=== PATIENT | male | born 1980 | race American Indian/Alaskan Native ===

== ENCOUNTER 2016-11-25 06:53 | Emergency (ER) | payer OTHER ==
[2016-11-25 07:10] VITALS: BP 121/76
--- NOTE | 2016-11-25 08:10 | XRay Report ---
CHEST TWO VIEWS: 11/25/16 06:53:00 CLINICAL: Cough. COMPARISON: 12/31/14 FINDINGS: Normal heart and pulmonary vasculature. The lungs are normally expanded and clear.The bones and soft tissues are unremarkable. IMPRESSION: Normal chest.
--- NOTE | 2016-11-25 08:16 | Emergency Department Report ---
- General Chief Complaint: Upper Respiratory Infection Stated Complaint: HEAD CONGESTION Time Seen by Provider: 11/25/16 07:35 Source: patient Mode of arrival: Ambulatory Limitations: No Limitations - History of Present Illness Initial Comments: 36-year-old male past medical history smoker presents with complaint of one week of fevers chills productive cough worsening cough which is why he came to the ED today. Patient awake alert and oriented 3 not in acute distress states that yesterday he had coughing fits which kept him up all night which is why he came here today. Patient denies any palpitations or chest pain and sometimes inhales gases or dust at work. His cough is productive of yellowish thick green sputum. MD Complaint: cough Onset/Timin -: week(s) Severity: moderate Severity scale (0 -10): 6 Associated Symptoms: nasal congestion, cough - Related Data Previous Rx's Medication Instructions Recorded Last Taken Type Folic Acid [Folvite] 1 mg PO QDAY #30 tablet 01/06/15 Unknown Rx Sucralfate [Carafate] 1 gm PO Q6HR #30 tablet 01/06/15 Unknown Rx Thiamine [Vitamin B-1] 100 mg PO QDAY #30 tablet 01/06/15 Unknown Rx HYDROcodone/APAP 5-325 [[place] 1 each PO Q6HR PRN #12 tablet 12/30/15 Unknown Rx 5/325] Ondansetron [Zofran Odt] 4 mg PO Q6HR PRN #20 tab.rapdis 12/30/15 Unknown Rx Pantoprazole [Protonix TAB] 40 mg PO QDAY #30 tablet 12/30/15 Unknown Rx Ciprofloxacin HCl [Ciprofloxacin 500 mg PO Q12HR #6 tab 12/31/15 Unknown Rx TAB] Ibuprofen [Motrin] 600 mg PO Q6H PRN #20 tablet 12/31/15 Unknown Rx ALBUTEROL Inhaler [ProAir HFA 2 puff IH QID PRN #1 inhalation 11/25/16 Unknown Rx Inhaler] Azithromycin [Zithromax Z-MARY] 250 mg PO QDAY #6 tablet 11/25/16 Unknown Rx Naproxen [Naprosyn TAB] 500 mg PO BID PRN #14 tablet 11/25/16 Unknown Rx Allergies Allergy/AdvReac Type Severity Reaction Status Date / Time No Known Allergies Allergy Unverified 11/06/13 07:23 ED Review of Systems ROS: Stated complaint: HEAD CONGESTION Other details as noted in HPI Constitutional: denies: chills, fever Eyes: denies: eye pain, eye discharge, vision change ENT: denies: ear pain, throat pain Respiratory: cough. denies: shortness of breath, wheezing Cardiovascular: denies: chest pain, palpitations Endocrine: no symptoms reported Gastrointestinal: denies: abdominal pain, nausea, diarrhea Genitourinary: denies: urgency, dysuria Musculoskeletal: denies: back pain, joint swelling, arthralgia Skin: denies: rash, lesions Neurological: denies: headache, weakness, paresthesias Psychiatric: denies: anxiety, depression Hematological/Lymphatic: denies: easy bleeding, easy bruising ED Past Medical Hx - Past Medical History Previous Medical History?: Yes Hx Hypertension: No Hx Congestive Heart Failure: No Hx Diabetes: No Hx Liver Disease: Yes (elevated LFTs, possible acute alcholic hepatitis) Hx Seizures: No Hx Asthma: No Hx COPD: No Additional medical history: cirrhosis - Surgical History Past Surgical History?: No - Social History Smoking Status: Current Some Day Smoker Substance Use Type: Alcohol - Medications Home Medications: Home Medications Medication Instructions Recorded Confirmed Last Taken Type Folic Acid [Folvite] 1 mg PO QDAY #30 tablet 01/06/15 Unknown Rx Sucralfate [Carafate] 1 gm PO Q6HR #30 tablet 01/06/15 Unknown Rx Thiamine [Vitamin B-1] 100 mg PO QDAY #30 tablet 01/06/15 Unknown Rx HYDROcodone/APAP 5-325 [[place] 1 each PO Q6HR PRN #12 tablet 12/30/15 Unknown Rx 5/325] Ondansetron [Zofran Odt] 4 mg PO Q6HR PRN #20 tab.rapdis 12/30/15 Unknown Rx Pantoprazole [Protonix TAB] 40 mg PO QDAY #30 tablet 12/30/15 Unknown Rx Ciprofloxacin HCl [Ciprofloxacin 500 mg PO Q12HR #6 tab 12/31/15 Unknown Rx TAB] Ibuprofen [Motrin] 600 mg PO Q6H PRN #20 tablet 12/31/15 Unknown Rx ALBUTEROL Inhaler [ProAir HFA 2 puff IH QID PRN #1 inhalation 11/25/16 Unknown Rx Inhaler] Azithromycin [Zithromax Z-MARY] 250 mg PO QDAY #6 tablet 11/25/16 Unknown Rx Naproxen [Naprosyn TAB] 500 mg PO BID PRN #14 tablet 11/25/16 Unknown Rx ED Physical Exam - General Limitations: No Limitations General appearance: alert, in no apparent distress - Head Head exam: Present: atraumatic, normocephalic - Eye Eye exam: Present: normal appearance, PERRL, EOMI - ENT ENT exam: Present: mucous membranes moist - Neck Neck exam: Present: normal inspection - Respiratory Respiratory exam: Present: normal lung sounds bilaterally. Absent: respiratory distress - Cardiovascular Cardiovascular Exam: Present: regular rate, normal rhythm. Absent: systolic murmur, diastolic murmur, rubs, gallop - GI/Abdominal GI/Abdominal exam: Present: soft, normal bowel sounds - Rectal Rectal exam: Present: deferred - Extremities Exam Extremities exam: Present: normal inspection - Back Exam Back exam: Present: normal inspection - Neurological Exam Neurological exam: Present: alert, oriented X3 - Psychiatric Psychiatric exam: Present: normal affect, normal mood - Skin Skin exam: Present: warm, dry, intact, normal color. Absent: rash ED Course Vital Signs 11/25/16 06:55 Temperature 97.9 F Pulse Rate 86 Respiratory 26 H Rate Blood Pressure 121/76 O2 Sat by Pulse 96 Oximetry ED Medical Decision Making - Medical Decision Making A/P: Acute bronchitis 1-albuterol inhaler, naproxen, Z-Mary 2-patient is heavy smoker and smokes 2-3 packs a day we'll cover him empirically with Z-Mary 3-patient requesting primary care referral I will refer him 4-advised to return for any severe fever chills worsened cough chest pain or inability to tolerate by mouth Critical care attestation.: If time is entered above; I have spent that time in minutes in the direct care of this critically ill patient, excluding procedure time. ED Disposition Clinical Impression: Acute bronchitis Qualifiers: Bronchitis organism: unspecified organism Qualified Code(s): J20.9 - Acute bronchitis, unspecified Disposition: DISCHARGED TO HOME OR SELFCARE Is pt being admited?: No Does the pt Need Aspirin: No Condition: Stable Instructions: Acute Bronchitis (ED), How to Stop Smoking (ED) Prescriptions: ALBUTEROL Inhaler [ProAir HFA Inhaler] 2 puff IH QID PRN #1 inhalation PRN Reason: Shortness Of Breath Azithromycin [Zithromax Z-MARY] 250 mg PO QDAY #6 tablet Naproxen [Naprosyn TAB] 500 mg PO BID PRN #14 tablet PRN Reason: Pain Referrals: PRIMARY CARE, [Primary Care Provider] - 3-5 Days JEANINE BEAR MD [Staff Physician] - 3-5 Days [facility] [Outside] - 3-5 Days Forms: Work/School Release Form(ED) Time of Disposition: 08:15
== END 2016-11-25 08:24 | disposition home or self-care (01) ==
LOC: ED 06:53
DX: J20.9 Acute bronchitis, unspecified (principal); Z72.0 Tobacco use
CPT/HCPCS: 71020; 99283

== ENCOUNTER 2017-10-28 17:54 | Emergency (ER) | payer OTHER ==
[2017-10-29] MEDS ORDERED: MOTRIN PO ONE (00:42)
[2017-10-29] MEDS ORDERED: BOOSTRIX IM ONE (00:42)
--- NOTE | 2017-10-29 00:46 | Emergency Department Report ---
ED Laceration HPI - HPI Chief Complaint: Laceration/Recheck/Suture Stated Complaint: ABD. LACERATION Time Seen by Provider: 10/28/17 23:32 Occurred When: Yesterday Location: Abdomen Tetanus Status: Not up to Date Laceration Symptoms: Yes Pain, No Foreign Body Sensation, No Numbness, No Weakness Other History: This is a 37-year-old male nontoxic, well nourished in appearance , no acute signs of distress presents to the ED with c/o of abrasions of the abdomen that occurred yesterday. Patient stated he was using a carbon grinder at home and accidentally had contact with his abdomen region. Patient denies any pus, drainage, swelling, numbness, tingling, fever, chills, nausea, vomiting, headache or stiff neck. Patient denies any other trauma. Patient stated area is crusting. Patient denies any allergies or significant past medical history. ED Review of Systems ROS: Stated complaint: ABD. LACERATION Other details as noted in HPI Constitutional: denies: chills, fever Eyes: denies: eye pain, eye discharge, vision change ENT: denies: ear pain, throat pain Respiratory: denies: cough, shortness of breath, wheezing Cardiovascular: denies: chest pain, palpitations Endocrine: no symptoms reported Gastrointestinal: denies: abdominal pain, nausea, diarrhea Genitourinary: denies: urgency, dysuria Musculoskeletal: denies: back pain, joint swelling, arthralgia Skin: other (abrasion). denies: rash, lesions Neurological: denies: headache, weakness, paresthesias Psychiatric: denies: anxiety, depression Hematological/Lymphatic: denies: easy bleeding, easy bruising ED Past Medical Hx - Past Medical History Hx Hypertension: No Hx Congestive Heart Failure: No Hx Diabetes: No Hx Liver Disease: Yes (elevated LFTs, possible acute alcholic hepatitis) Hx Seizures: No Hx Asthma: No Hx COPD: No Additional medical history: cirrhosis - Social History Smoking Status: Never Smoker Substance Use Type: None - Medications Home Medications: Home Medications Medication Instructions Recorded Confirmed Last Taken Type Folic Acid [Folvite] 1 mg PO QDAY #30 tablet 01/06/15 Unknown Rx Sucralfate [Carafate] 1 gm PO Q6HR #30 tablet 01/06/15 Unknown Rx Thiamine [Vitamin B-1] 100 mg PO QDAY #30 tablet 01/06/15 Unknown Rx HYDROcodone/APAP 5-325 [[place] 1 each PO Q6HR PRN #12 tablet 12/30/15 Unknown Rx 5/325] Ondansetron [Zofran Odt] 4 mg PO Q6HR PRN #20 tab.rapdis 12/30/15 Unknown Rx Pantoprazole [Protonix TAB] 40 mg PO QDAY #30 tablet 12/30/15 Unknown Rx Ciprofloxacin HCl [Ciprofloxacin 500 mg PO Q12HR #6 tab 12/31/15 Unknown Rx TAB] Ibuprofen [Motrin] 600 mg PO Q6H PRN #20 tablet 12/31/15 Unknown Rx ALBUTEROL Inhaler [ProAir HFA 2 puff IH QID PRN #1 inhalation 11/25/16 Unknown Rx Inhaler] Azithromycin [Zithromax Z-MARY] 250 mg PO QDAY #6 tablet 11/25/16 Unknown Rx Naproxen [Naprosyn TAB] 500 mg PO BID PRN #14 tablet 11/25/16 Unknown Rx Ibuprofen [Motrin] 600 mg PO Q8H PRN #20 tablet 10/29/17 Unknown Rx Sulfamethoxazole/Trimethoprim 1 each PO BID #14 tablet 10/29/17 Unknown Rx [Bactrim DS TAB] Laceration Physical Exam - Exam General: Vital signs noted. No distress. Alert and acting appropriately. GENERAL: The patient is a well-developed, well-nourished in no apparent distress. Patient is alert and acting appropriately for age. Alert and oriented 3, no apparent distress, normal gait, atraumatic. HEENT: Head is normocephalic and atraumatic. PERRL, Extraocular muscles are intact. Pupils are equal, round, and reactive to light and accommodation. Nares appeared normal. Mouth is well hydrated and without lesions. Mucous membranes are moist. Posterior pharynx clear of any exudate or lesions. Mouth is well hydrated and without lesions. Tonsils not erythematous or swollen. Uvula midline. Tongue elevated. Mucous members are moist. Posterior pharynx clear, no exudate or lesions. Patent airways. NECK: Supple. No carotid bruits. No lymphadenopathy or thyromegaly.nontender. No meningitic signs are noted. LUNGS: Clear to auscultation. Non labor breathing. No intercostal retractions. Symmetrical with respiration, no wheezing, no rales, or crackles. HEART: Regular rate and rhythm without murmur, rubs or gallops. No reproducible. S1, S2 present, regular rate and rhythm without murmur, no rubs, no gallops. ABDOMEN: Soft, nontender, and nondistended. Positive bowel sounds. No hepatosplenomegaly was noted. No guarding or rebound tenderness, negative epigastric bruit. Negative psoas sign, negative wallace sign, negative McBurneys sign EXTREMITIES: Without any cyanosis, clubbing, rash, lesions or edema. Peripheral pulses intact. Capillary refill less than 2 seconds. Full range of motion bilaterally. NEUROLOGIC: Cranial nerves II through XII are grossly intact. Alert and oriented x 3. Normal gait. Symmetrical strength and sensation. Reflexes 2+ throughout. Cerebellar testing normal. GCS score of 15. PSYCHIATRIC: Normal affect with no suicidal or homicidal ideations. Wound Length (cm): 7 (inches) Laceration Location: Abdomen Full Body Front + Back: 1 - 7 inches abrasion with healing crusting. No lacertation present. No open wound. No pus or drainage noted. No swelling. Laceration Exam: Yes Normal Distal CMS, No Foreign Body, No Exposed Tendon, Vessel, or Nerve, No Tendon Injury ED Course Vital Signs 10/28/17 19:06 Temperature 98.4 F Pulse Rate 86 Respiratory 18 Rate Blood Pressure 116/83 O2 Sat by Pulse 98 Oximetry - Reevaluation(s) Reevaluation #1: 10/29/17 00:45 Patient is speaking in full sentences with no signs of distress noted. ED Medical Decision Making - Medical Decision Making 37-year-old male male that presents with abrasion that is well-healing and crusting. Patient is stable and was examined by me. Patient received tetanus booster and Motrin and ED. Patient be treated with Bactrim for empirical treatment. Patient was instructed for proper wound care. Patient was instructed to observe symptoms and signs of infection and to return to emergency room if present. Patient was instructed Follow-up with a primary care doctor in 3-5 days or if symptoms worsen and continue return to emergency room as soon as possible. At time time of discharge, the patient does not seem toxic or ill in appearance. No acute signs of distress noted. Patient agrees to discharge treatment plan of care. No further questions noted by the patient. Critical care attestation.: If time is entered above; I have spent that time in minutes in the direct care of this critically ill patient, excluding procedure time. ED Disposition Clinical Impression: Abrasion Disposition: DC-01 TO HOME OR SELFCARE Is pt being admited?: No Does the pt Need Aspirin: No Condition: Stable Instructions: Abrasion (ED), Sulfamethoxazole/Trimethoprim (By mouth), Ibuprofen (By mouth) Additional Instructions: Follow-up with a primary care doctor in 3-5 days or if symptoms worsen and continue return to emergency room as soon as possible. Prescriptions: Ibuprofen [Motrin] 600 mg PO Q8H PRN #20 tablet PRN Reason: Pain Sulfamethoxazole/Trimethoprim [Bactrim DS TAB] 1 each PO BID #14 tablet Referrals: PRIMARY CAREMD [Primary Care Provider] - 3-5 Days JEANINE MEDEIROS MD [Staff Physician] - 3-5 Days [facility] [Outside] - 3-5 Days Forms: Work/School Release Form(ED)
[2017-10-29 00:55] VITALS: BP 124/81
== END 2017-10-29 00:58 | disposition home or self-care (01) ==
LOC: ED 17:54
DX: S30.811A Abrasion of abdominal wall, initial encounter (principal); W22.8XXA Striking against or struck by other objects, initial encounter; Y93.89 Activity, other specified; Y92.89 Other specified places as the place of occurrence of the external cause; Y99.8 Other external cause status
CPT/HCPCS: 90471; 90715; 99282

== ENCOUNTER 2018-04-05 00:26 | Emergency (ER) | payer OTHER ==
[2018-04-05 03:28] VITALS: BP 121/81
--- NOTE | 2018-04-05 03:51 | XRay Report ---
FINAL REPORT EXAM: XR SPINE LUMBOSACRAL 2-3V HISTORY: lower back pain COMPARISON: None available. FINDINGS: AP lateral views of the lumbar spine obtained. Lumbar vertebral body heights and disc heights are preserved. Pedicles are intact. No spondylolisthesis. IMPRESSION: Normal height and alignment of the lumbar spine.
[2018-04-05] MEDS ORDERED: TORADOL IM ONE (04:59)
--- NOTE | 2018-04-05 05:02 | Emergency Department Report ---
HPI - General Chief Complaint: Back Pain/Injury Time Seen by Provider: 04/05/18 04:58 - HPI HPI: The patient is a 37 yo male who presents for evaluation of back pain. The patient reports bilateral low back pain for the past 2 days. He states that his back pain began after picking up a heavy boxes. His back pain is currently moderate to severe, sharp in quality, exacerbated with bending over at the lower back. The patient denies blunt trauma to the back, fall, fever, chills, night sweats, saddle anesthesia, paresthesias, numbness or tingling in the legs , leg weakness, urine or bowel incontinence or retention, difficulty ambulating , or other focal neurological deficits. ED Past Medical Hx - Past Medical History Hx Hypertension: No Hx Congestive Heart Failure: No Hx Diabetes: No Hx Liver Disease: Yes (elevated LFTs, possible acute alcholic hepatitis) Hx Seizures: No Hx Asthma: No Hx COPD: No Additional medical history: cirrhosis - Surgical History Past Surgical History?: No - Social History Smoking Status: Current Every Day Smoker Substance Use Type: None - Medications Home Medications: Home Medications Medication Instructions Recorded Confirmed Last Taken Type Folic Acid [Folvite] 1 mg PO QDAY #30 tablet 01/06/15 Unknown Rx Sucralfate [Carafate] 1 gm PO Q6HR #30 tablet 01/06/15 Unknown Rx Thiamine [Vitamin B-1] 100 mg PO QDAY #30 tablet 01/06/15 Unknown Rx HYDROcodone/APAP 5-325 [[place] 1 each PO Q6HR PRN #12 tablet 12/30/15 Unknown Rx 5/325] Ondansetron [Zofran Odt] 4 mg PO Q6HR PRN #20 tab.rapdis 12/30/15 Unknown Rx Pantoprazole [Protonix TAB] 40 mg PO QDAY #30 tablet 12/30/15 Unknown Rx Ciprofloxacin HCl [Ciprofloxacin 500 mg PO Q12HR #6 tab 12/31/15 Unknown Rx TAB] Ibuprofen [Motrin] 600 mg PO Q6H PRN #20 tablet 12/31/15 Unknown Rx ALBUTEROL Inhaler [ProAir HFA 2 puff IH QID PRN #1 inhalation 11/25/16 Unknown Rx Inhaler] Azithromycin [Zithromax Z-MARY] 250 mg PO QDAY #6 tablet 02/08/17 Unknown Rx Naproxen [Naprosyn TAB] 500 mg PO BID PRN #14 tablet 11/25/16 Unknown Rx Ibuprofen [Motrin] 600 mg PO Q8H PRN #20 tablet 10/29/17 Unknown Rx Sulfamethoxazole/Trimethoprim 1 each PO BID #14 tablet 10/29/17 Unknown Rx [Bactrim DS TAB] Ibuprofen [Motrin] 800 mg PO Q8HR PRN #10 tablet 04/05/18 Unknown Rx traMADol [Ultram 50 MG tab] 50 mg PO Q6HR PRN #15 tablet 04/05/18 Unknown Rx ED Review of Systems ROS: Stated complaint: BACK PAIN Other details as noted in HPI Constitutional: denies: fever ENT: denies: throat or neck pain Respiratory: denies: cough, shortness of breath Cardiovascular: denies: chest pain Endocrine: denies unexplained weight loss or gain Gastrointestinal: denies: abdominal pain, nausea Genitourinary: denies: dysuria Musculoskeletal: reports back pain denies: leg swelling Skin: denies: rash Neurological: denies: headache Hematological/Lymphatic: denies: easy bleeding or easy bruising Psych: denies sadness or hopelessness Physical Exam - Physical Exam Vital Signs: Vital Signs 04/05/18 03:24 Temperature 98.3 F Pulse Rate 84 Blood Pressure 121/81 O2 Sat by Pulse 97 Oximetry Physical Exam: General: well-nourished, well-developed, no acute distress Head: Normocephalic, atraumatic Eyes: normal sclera ENT: Mucous membranes are pink and moist Neck: trachea midline, neck supple, No neck stiffness, no cervical adenopathy Respiratory: Breath sounds equal bilaterally, no wheezing, rales, or rhonchi Cardio: S1 and S2 present, no murmurs, rubs, gallops, capillary refill is brisk Abdomen: Normoactive bowel sounds, soft abdomen, no rigidity, no guarding or rebound tenderness Chest WALL/Back: No tenderness to palpation of the chest wall, no CVA tenderness with percussion Musc: Tenderness to palpation present to bilateral lumbar paraspinal musculature , pain is elicited with bending over, normal active range of motion at the hip intact, no spinous step-off or obvious deformity, ipsi-lateral and contralateral straight leg raise tests are negative. On extremity testing, compartments are soft and pliable, no obvious gross motor strength deficit, 5+ motor strength, including extension of the great toe bilaterally, no muscular atrophy, spasticity, fasciculations, or clonus, no obvious gross sensation deficit including web space between 1st and 2nd toes, reflexes 2+ & symmetric on DTR testing at the knee and ankle joints, distal pulses intact. Skin: No rash Neuro: no facial drooping, normal speech Psych: Normal affect ED Course Vital Signs 04/05/18 03:24 Temperature 98.3 F Pulse Rate 84 Blood Pressure 121/81 O2 Sat by Pulse 97 Oximetry ED Medical Decision Making - Medical Decision Making The patient was seen and examined by myself. The patient is placed on a cardiac catheterization technologist and continuous pulse ox. On initial evaluation, the patient was found to be in no distress. No findings on exam concerning for cauda equina syndrome, spinal stenosis, or epidural abscess. As the patient has no midline tenderness on exam, no neuro deficits, and no findings concerning for emergent etiology of their back pain, imaging will not be obtained at this time. The patient is given an IM dose of Toradol pain medicine. The patient was reevaluated and reported that their pain significantly improved. The patient is stable for discharge with outpatient follow-up. The patient is given follow-up and return instructions. The patient expressed understanding and agreed with the plan. The patient is discharged in stable condition. Critical care attestation.: If time is entered above; I have spent that time in minutes in the direct care of this critically ill patient, excluding procedure time. ED Disposition Clinical Impression: Acute bilateral low back pain without sciatica Disposition: TO HOME OR SELFCARE Is pt being admited?: No Does the pt Need Aspirin: No Condition: Stable Instructions: Low Back Strain (ED), Back Pain (ED) Prescriptions: Ibuprofen [Motrin] 800 mg PO Q8HR PRN #10 tablet PRN Reason: Pain traMADol [Ultram 50 MG tab] 50 mg PO Q6HR PRN #15 tablet PRN Reason: Pain Referrals: ISAIAH PRASAD MD [Staff Physician] - 3-5 Days Forms: Work/School Release Form(ED) Time of Disposition: 04:59
== END 2018-04-05 06:05 | disposition home or self-care (01) ==
LOC: ED 00:26
DX: M54.5 Low back pain (principal); F17.200 Nicotine dependence, unspecified, uncomplicated; K70.30 Alcoholic cirrhosis of liver without ascites
CPT/HCPCS: 72100; 96372; 99283; J1885

== ENCOUNTER 2018-11-28 09:30 | Emergency (ER) | payer OTHER ==
[2018-11-28] MEDS ORDERED: ASPIRIN PO ONE (10:00)
[2018-11-28 10:18] LABS: Basophils % (Auto) 0.3 % (0.0-1.8); Eosinophils # (Auto) 0.1 K/mm3 (0.0-0.4); Eosinophils % (Auto) 0.8 % (0.0-4.3); Hematocrit 43.8 % (35.5-45.6); Hemoglobin 15.1 gm/dl (11.8-15.2); Lymphocytes # (Auto) 1.3 K/mm3 (1.2-5.4); Lymphocytes % (Auto) 16.5 % (13.4-35.0); Mean Corpuscular HGB Conc 34 % (32-34); Mean Corpuscular Volume 85 fl (84-94); Monocytes # (Auto) 0.7 K/mm3 (0.0-0.8); Monocytes % (Auto) 8.3 % (0.0-7.3); Platelet Count 328 K/mm3 (140-440); Red Blood Count 5.14 M/mm3 (3.65-5.03); Red Cell Distribution Width 13.2 % (13.2-15.2)
[2018-11-28 10:42] LABS: Albumin 4.4 g/dL (3.9-5); BUN/Creatinine Ratio 23; Blood Urea Nitrogen 18 mg/dL (9-20); Calcium 9.5 mg/dL (8.4-10.2); Hemolysis Index 166
[2018-11-28 11:22] LABS: Alanine Aminotransferase 12 units/L (7-56)
--- NOTE | 2018-11-28 11:49 | Emergency Department Report ---
ED Abdominal Pain HPI - General Chief Complaint: Chest Pain Stated Complaint: CHEST PAIN/BACK PAIN Time Seen by Provider: 11/28/18 11:42 Source: patient Mode of arrival: Ambulatory Limitations: No Limitations - History of Present Illness Initial Comments: Patient is a 38-year-old gentleman who has complaints of right upper quadrant and right chest pain. Patient states this occurred last night approximately 8 PM. Patient cannot remember the last meal he had. Patient states was a sharp pain in this area. Patient denies any nausea vomiting diarrhea fevers chills cough, congestion. Patient states the pain is improved today however it is not completely gone. Radiation: RUQ Severity scale (0 -10): 6 Consistency: constant Improves With: nothing Worsens With: nothing Associated Symptoms: denies: nausea, vomiting, diarrhea, fever, chills, constipation, dysuria, hematemesis, hematochezia, melena - Related Data Previous Rx's Medication Instructions Recorded Last Taken Type Folic Acid [Folvite] 1 mg PO QDAY #30 tablet 01/06/15 Unknown Rx Sucralfate [Carafate] 1 gm PO Q6HR #30 tablet 01/06/15 Unknown Rx Thiamine [Vitamin B-1] 100 mg PO QDAY #30 tablet 01/06/15 Unknown Rx HYDROcodone/APAP 5-325 [[place] 1 each PO Q6HR PRN #12 tablet 12/30/15 Unknown Rx 5/325] Ondansetron [Zofran Odt] 4 mg PO Q6HR PRN #20 tab.rapdis 12/30/15 Unknown Rx Pantoprazole [Protonix TAB] 40 mg PO QDAY #30 tablet 12/30/15 Unknown Rx Ciprofloxacin HCl [Ciprofloxacin 500 mg PO Q12HR #6 tab 12/31/15 Unknown Rx TAB] Ibuprofen [Motrin] 600 mg PO Q6H PRN #20 tablet 12/31/15 Unknown Rx ALBUTEROL Inhaler (OR & NICU) 2 puff IH QID PRN #1 inhalation 11/25/16 Unknown Rx [ProAir HFA Inhaler] Azithromycin [Zithromax Z-MARY] 250 mg PO QDAY #6 tablet 11/25/16 Unknown Rx Naproxen [Naprosyn TAB] 500 mg PO BID PRN #14 tablet 11/25/16 Unknown Rx Ibuprofen [Motrin] 600 mg PO Q8H PRN #20 tablet 10/29/17 Unknown Rx Sulfamethoxazole/Trimethoprim 1 each PO BID #14 tablet 10/29/17 Unknown Rx [Bactrim DS TAB] Ibuprofen [Motrin] 800 mg PO Q8HR PRN #10 tablet 04/05/18 Unknown Rx traMADol [Ultram 50 MG tab] 50 mg PO Q6HR PRN #15 tablet 04/05/18 Unknown Rx Dicyclomine [Bentyl] 20 mg PO QID PRN #20 tablet 07/27/18 Unknown Rx Promethazine [Phenergan TAB] 25 mg PO Q6HR PRN #20 tab 07/27/18 Unknown Rx Famotidine [Pepcid] 40 mg PO QHS #10 tablet 11/28/18 Unknown Rx traMADol [Ultram] 50 mg PO Q6HR PRN #12 tablet 11/28/18 Unknown Rx Allergies Allergy/AdvReac Type Severity Reaction Status Date / Time No Known Allergies Allergy Unverified 11/06/13 07:23 ED Review of Systems ROS: Stated complaint: CHEST PAIN/BACK PAIN Other details as noted in HPI Comment: All other systems reviewed and negative ED Past Medical Hx - Past Medical History Hx Hypertension: No Hx Congestive Heart Failure: No Hx Diabetes: No Hx Liver Disease: Yes (elevated LFTs, possible acute alcholic hepatitis) Hx Seizures: No Hx Asthma: No Hx COPD: No Additional medical history: cirrhosis - Surgical History Past Surgical History?: No - Social History Smoking Status: Current Every Day Smoker Substance Use Type: Marijuana - Medications Home Medications: Home Medications Medication Instructions Recorded Confirmed Last Taken Type Folic Acid [Folvite] 1 mg PO QDAY #30 tablet 01/06/15 Unknown Rx Sucralfate [Carafate] 1 gm PO Q6HR #30 tablet 01/06/15 Unknown Rx Thiamine [Vitamin B-1] 100 mg PO QDAY #30 tablet 01/06/15 Unknown Rx HYDROcodone/APAP 5-325 [[place] 1 each PO Q6HR PRN #12 tablet 12/30/15 Unknown Rx 5/325] Ondansetron [Zofran Odt] 4 mg PO Q6HR PRN #20 tab.rapdis 12/30/15 Unknown Rx Pantoprazole [Protonix TAB] 40 mg PO QDAY #30 tablet 12/30/15 Unknown Rx Ciprofloxacin HCl [Ciprofloxacin 500 mg PO Q12HR #6 tab 03/15/16 Unknown Rx TAB] Ibuprofen [Motrin] 600 mg PO Q6H PRN #20 tablet 12/31/15 Unknown Rx ALBUTEROL Inhaler (OR & NICU) 2 puff IH QID PRN #1 inhalation 11/25/16 Unknown Rx [ProAir HFA Inhaler] Azithromycin [Zithromax Z-MARY] 250 mg PO QDAY #6 tablet 11/25/16 Unknown Rx Naproxen [Naprosyn TAB] 500 mg PO BID PRN #14 tablet 11/25/16 Unknown Rx Ibuprofen [Motrin] 600 mg PO Q8H PRN #20 tablet 10/29/17 Unknown Rx Sulfamethoxazole/Trimethoprim 1 each PO BID #14 tablet 10/29/17 Unknown Rx [Bactrim DS TAB] Ibuprofen [Motrin] 800 mg PO Q8HR PRN #10 tablet 04/05/18 Unknown Rx traMADol [Ultram 50 MG tab] 50 mg PO Q6HR PRN #15 tablet 04/05/18 Unknown Rx Dicyclomine [Bentyl] 20 mg PO QID PRN #20 tablet 07/27/18 Unknown Rx Promethazine [Phenergan TAB] 25 mg PO Q6HR PRN #20 tab 07/27/18 Unknown Rx Famotidine [Pepcid] 40 mg PO QHS #10 tablet 11/28/18 Unknown Rx traMADol [Ultram] 50 mg PO Q6HR PRN #12 tablet 11/28/18 Unknown Rx ED Physical Exam - General Limitations: No Limitations General appearance: alert, in no apparent distress - Head Head exam: Present: atraumatic, normocephalic - Eye Eye exam: Present: normal appearance - ENT ENT exam: Present: mucous membranes moist - Neck Neck exam: Present: normal inspection - Respiratory Respiratory exam: Present: normal lung sounds bilaterally. Absent: respiratory distress, wheezes, rales, rhonchi - Cardiovascular Cardiovascular Exam: Present: regular rate, normal rhythm. Absent: systolic murmur, diastolic murmur, rubs, gallop - GI/Abdominal GI/Abdominal exam: Present: soft, tenderness (patient has reproducible tenderness in the right upper quadrant), normal bowel sounds. Absent: distended, guarding, rebound, rigid - Rectal Rectal exam: Present: deferred - Extremities Exam Extremities exam: Present: normal inspection - Back Exam Back exam: Present: normal inspection - Neurological Exam Neurological exam: Present: alert, oriented X3 - Psychiatric Psychiatric exam: Present: normal affect, normal mood - Skin Skin exam: Present: warm, dry, intact, normal color. Absent: rash ED Course Vital Signs 11/28/18 11/28/18 09:55 11:18 Temperature 98 F Pulse Rate 71 Respiratory 18 18 Rate Blood Pressure 139/91 O2 Sat by Pulse 100 Oximetry ED Medical Decision Making - Lab Data Result diagrams: 11/28/18 10:03 11/28/18 10:03 Lab Results 11/28/18 11/28/18 11/28/18 Range/Units 10:03 10:03 10:03 WBC 8.0 (4.5-11.0) K/mm3 RBC 5.14 H (3.65-5.03) M/mm3 Hgb 15.1 (11.8-15.2) gm/dl Hct 43.8 (35.5-45.6) % MCV 85 (84-94) fl MCH 29 (28-32) pg MCHC 34 (32-34) % RDW 13.2 (13.2-15.2) % Plt Count 328 (140-440) K/mm3 Lymph % (Auto) 16.5 (13.4-35.0) % [place] % (Auto) 8.3 H (0.0-7.3) % Eos % (Auto) 0.8 (0.0-4.3) % Baso % (Auto) 0.3 (0.0-1.8) % Lymph # 1.3 (1.2-5.4) K/mm3 [place] # 0.7 (0.0-0.8) K/mm3 Eos # 0.1 (0.0-0.4) K/mm3 Baso # 0.0 (0.0-0.1) K/mm3 Seg Neutrophils % 74.1 H (40.0-70.0) % Seg Neutrophils # 5.9 (1.8-7.7) K/mm3 Sodium 137 (137-145) mmol/L Potassium 4.6 (3.6-5.0) mmol/L Chloride 98.6 (98-107) mmol/L Carbon Dioxide 25 (22-30) mmol/L Anion Gap 18 mmol/L BUN 18 (9-20) mg/dL Creatinine 0.8 (0.8-1.5) mg/dL Estimated GFR > 60 ml/min BUN/Creatinine Ratio 23 % Glucose 95 (75-100) mg/dL Calcium 9.5 (8.4-10.2) mg/dL Total Bilirubin 0.40 (0.1-1.2) mg/dL AST 22 (5-40) units/L ALT 12 (7-56) units/L Alkaline Phosphatase 65 (35-129) units/L Troponin T < 0.010 (0.00-0.029) ng/mL Total Protein 7.4 (6.3-8.2) g/dL Albumin 4.4 (3.9-5) g/dL Albumin/Globulin Ratio 1.5 % - Radiology Data [facility] [address] [place] [address] Ultrasound Report Signed Patient: ZACK CHOUDHURY MR#: [id number] : 1980 Acct:[id number] Age/Sex: 38 / M ADM Date: 11/28/18 Loc: ED Attending Dr: Ordering Physician: MARIANA HUDSON MD Date of Service: 11/28/18 Procedure(s): US abdomen limited Accession Number(s): [id number] cc: MARIANA HUDSON MD FINAL REPORT EXAM: US ABDOMEN LIMITED HISTORY: RUQ pain COMPARISON: CT of the abdomen and pelvis performed on 12/30/2015 TECHNIQUE: Multiple transverse and longitudinal sonographic grayscale images of the right upper quadrant of the abdomen were obtained, supplemented with Doppler imaging. FINDINGS: Pancreas:Visualized portions normal. Liver appearance: Diffusely increased echogenicity of the hepatic parenchyma. No focal internal lesion.No biliary ductal dilatation. CBD: 2.9mm. Gallbladder: Fluid filled and without stones. No pericholecystic fluid or gallbladder wall thickening. Sonographic 's sign is negative. Right kidney length: 12.1 cm. Right kidney appearance: Normal cortical thickness. No hydronephrosis. No echogenic focus or mass. Aorta: Visualized portions are normal. IVC: Visualized portions are normal. Other findings: No free fluid. IMPRESSION: Diffusely increased echogenicity of the hepatic parenchyma, may be due to hepatic steatosis or other intrinsic liver disease. No focal internal lesion. Normal gallbladder and biliary tree. Transcribed By: STACIE Dictated By: ZANA HEALY MD Electronically Authenticated By: ZANA HEALY MD Signed Date/Time: 11/28/181252 DD/ 50 TD/TT: 11/28/181250 - Medical Decision Making His ultrasound is consistent with patient having some hepatic overreaction. Patient does admit to being a heavy alcohol user. Told the patient N his alcohol use and avoid Tylenol patient be given GI for follow-up. Critical care attestation.: If time is entered above; I have spent that time in minutes in the direct care of this critically ill patient, excluding procedure time. ED Disposition Clinical Impression: Hepatic steatosis Alcoholic gastritis Qualifiers: Chronicity: chronic Gastritis bleeding: without bleeding Qualified Code(s): K29.20 - Alcoholic gastritis without bleeding Disposition: DC-01 TO HOME OR SELFCARE Is pt being admited?: No Does the pt Need Aspirin: No Condition: Stable Instructions: Abuse of Alcohol (ED), Non-Alcoholic Fatty Liver Disease (ED) Referrals: LEO ZAPATA MD [Staff Physician] - 3-5 Days Time of Disposition: 13:36
--- NOTE | 2018-11-28 12:53 | Ultrasound Report ---
FINAL REPORT EXAM: US ABDOMEN LIMITED HISTORY: RUQ pain COMPARISON: CT of the abdomen and pelvis performed on 12/30/2015 TECHNIQUE: Multiple transverse and longitudinal sonographic grayscale images of the right upper quadrant of the abdomen were obtained, supplemented with Doppler imaging. FINDINGS: Pancreas:Visualized portions normal. Liver appearance: Diffusely increased echogenicity of the hepatic parenchyma. No focal internal lesio n.No biliary ductal dilatation. CBD: 2.9mm. Gallbladder: Fluid filled and without stones. No pericholecystic fluid or gallbladder wall thickening . Sonographic 's sign is negative. Right kidney length: 12.1 cm. Right kidney appearance: Normal cortical thickness. No hydronephrosis. No echogenic focus or mass. Aorta: Visualized portions are normal. IVC: Visualized portions are normal. Other findings: No free fluid. IMPRESSION: Diffusely increased echogenicity of the hepatic parenchyma, may be due to hepatic steatosis or other intrinsic liver disease. No focal internal lesion. Normal gallbladder and biliary tree.
[2018-11-28 14:01] VITALS: BP 136/88
== END 2018-11-28 13:59 | disposition home or self-care (01) ==
LOC: ED 09:30
DX: K29.20 Alcoholic gastritis without bleeding (principal); K76.0 Fatty (change of) liver, not elsewhere classified; F17.200 Nicotine dependence, unspecified, uncomplicated; F12.10 Cannabis abuse, uncomplicated; Z79.899 Other long term (current) drug therapy
CPT/HCPCS: 36415; 76705; 80053; 84484; 85025; 93005; 93010

== ENCOUNTER 2019-08-21 11:20 | Emergency (ER) | payer OTHER ==
[2019-08-21 11:56] VITALS: BP 132/88
--- NOTE | 2019-08-21 11:56 | Event Note ---
ED Screening Note Date of service: 08/21/19 Time: 11:51 ED Screening Note: 38 y o male presents with nasal congestion x 2 days today cc of general weakness with feeling of fever and chills, coughing This initial assessment/diagnostic orders/clinical plan/treatment(s) is/are subject to change based on patients health status, clinical progression and re- assessment by fellow clinical providers in the ED. Further treatment and workup at subsequent clinical providers discretion. Patient/guardian urged not to elope from the ED as their condition may be serious if not clinically assessed and managed. Initial orders include: labs cxr Acc eval
[2019-08-21 12:52] LABS: Basophils % (Auto) 0.5 % (0.0-1.8); Eosinophils # (Auto) 0.1 K/mm3 (0.0-0.4); Hematocrit 46.6 % (35.5-45.6); Hemoglobin 15.7 gm/dl (11.8-15.2); Lymphocytes # (Auto) 2.3 K/mm3 (1.2-5.4); Lymphocytes % (Auto) 27.9 % (13.4-35.0); Mean Corpuscular HGB Conc 34 % (32-34); Mean Corpuscular Volume 86 fl (84-94); Monocytes # (Auto) 0.7 K/mm3 (0.0-0.8); Monocytes % (Auto) 8.7 % (0.0-7.3); Platelet Count 300 K/mm3 (140-440); Red Blood Count 5.43 M/mm3 (3.65-5.03); Red Cell Distribution Width 13.8 % (13.2-15.2)
[2019-08-21 13:11] LABS: BUN/Creatinine Ratio 14; Blood Urea Nitrogen 13 mg/dL (9-20); Calcium 9.7 mg/dL (8.4-10.2); Hemolysis Index 13
--- NOTE | 2019-08-21 13:25 | XRay Report ---
CHEST 2 VIEWS INDICATION: Weakness. COMPARISON: 07/27/2018 FINDINGS: Support devices: None. Heart: Within normal limits. Lungs/pleura: No acute air space or interstitial disease. No pneumothorax. Additional findings: None. IMPRESSION: Unremarkable chest x-ray. Signer Name: Sergio Lloyd Jr, MD Signed: 08/21/2019 1:21 PM Workstation Name: [id number]
--- NOTE | 2019-08-21 14:12 | Emergency Department Report ---
ED General Adult HPI - General Chief complaint: Weakness Stated complaint: FLU SYMPTOMS Time Seen by Provider: 08/21/19 13:30 Source: patient Mode of arrival: Ambulatory Limitations: No Limitations - History of Present Illness Initial comments: Patient is a 38-year-old -[place] male who is presenting with headache and cough. Patient states symptoms been present for approximately 2 days. Patient states he has yellowish-green discharge from the nose. He has facial pain is 10 out of 10 in severity. States cough is nonproductive. He has had chills and possible fever. He denies nausea vomiting diarrhea neck stiffness. - Related Data Previous Rx's Medication Instructions Recorded Last Taken Type Folic Acid [Folvite] 1 mg PO QDAY #30 tablet 01/06/15 Unknown Rx Sucralfate [Carafate] 1 gm PO Q6HR #30 tablet 01/06/15 Unknown Rx Thiamine [Vitamin B-1] 100 mg PO QDAY #30 tablet 01/06/15 Unknown Rx HYDROcodone/APAP 5-325 [[place] 1 each PO Q6HR PRN #12 tablet 12/30/15 Unknown Rx 5/325] Ondansetron [Zofran Odt] 4 mg PO Q6HR PRN #20 tab.rapdis 12/30/15 Unknown Rx Pantoprazole [Protonix TAB] 40 mg PO QDAY #30 tablet 12/30/15 Unknown Rx Ciprofloxacin HCl [Ciprofloxacin 500 mg PO Q12HR #6 tab 12/31/15 Unknown Rx TAB] Ibuprofen [Motrin] 600 mg PO Q6H PRN #20 tablet 12/31/15 Unknown Rx ALBUTEROL Inhaler (OR & NICU) 2 puff IH QID PRN #1 inhalation 11/25/16 Unknown R x [ProAir HFA Inhaler] Azithromycin [Zithromax Z-MARY] 250 mg PO QDAY #6 tablet 11/25/16 Unknown Rx Naproxen [Naprosyn TAB] 500 mg PO BID PRN #14 tablet 11/25/16 Unknown Rx Ibuprofen [Motrin] 600 mg PO Q8H PRN #20 tablet 10/29/17 Unknown Rx Sulfamethoxazole/Trimethoprim 1 each PO BID #14 tablet 10/29/17 Unknown Rx [Bactrim DS TAB] Ibuprofen [Motrin] 800 mg PO Q8HR PRN #10 tablet 04/05/18 Unknown Rx traMADol [Ultram 50 MG tab] 50 mg PO Q6HR PRN #15 tablet 04/05/18 Unknown Rx Dicyclomine [Bentyl] 20 mg PO QID PRN #20 tablet 07/27/18 Unknown Rx Promethazine [Phenergan TAB] 25 mg PO Q6HR PRN #20 tab 07/27/18 Unknown Rx Famotidine [Pepcid] 40 mg PO QHS #10 tablet 11/28/18 Unknown Rx traMADol [Ultram] 50 mg PO Q6HR PRN #12 tablet 11/28/18 Unknown Rx Amoxicillin/Potassium Clav 1 each PO BID #14 tablet 08/21/19 Unknown Rx [Augmentin 875-125 Tablet] Fluticasone [Flonase] 1 spray NS QDAY #1 bottle 08/21/19 Unknown Rx traMADol [Ultram] 50 mg PO Q6HR PRN #12 tablet 08/21/19 Unknown Rx Allergies Allergy/AdvReac Type Severity Reaction Status Date / Time No Known Allergies Allergy Unverified 11/06/13 07:23 ED Review of Systems ROS: Stated complaint: FLU SYMPTOMS Other details as noted in HPI Comment: All other systems reviewed and negative ED Past Medical Hx - Past Medical History Previous Medical History?: Yes Hx Hypertension: No Hx Congestive Heart Failure: No Hx Diabetes: No Hx Liver Disease: Yes (elevated LFTs, possible acute alcholic hepatitis) Hx Seizures: No Hx Asthma: No Hx COPD: No Additional medical history: cirrhosis - Surgical History Past Surgical History?: No - Social History Smoking Status: Unknown if ever smoked Substance Use Type: Alcohol - Medications Home Medications: Home Medications Medication Instructions Recorded Confirmed Last Taken Type Folic Acid [Folvite] 1 mg PO QDAY #30 tablet 01/06/15 Unknown Rx Sucralfate [Carafate] 1 gm PO Q6HR #30 tablet 01/06/15 Unknown Rx Thiamine [Vitamin B-1] 100 mg PO QDAY #30 tablet 01/06/15 Unknown Rx HYDROcodone/APAP 5-325 [[place] 1 each PO Q6HR PRN #12 tablet 12/30/15 Unknown Rx 5/325] Ondansetron [Zofran Odt] 4 mg PO Q6HR PRN #20 tab.rapdis 12/30/15 Unknown Rx Pantoprazole [Protonix TAB] 40 mg PO QDAY #30 tablet 12/30/15 Unknown Rx Ciprofloxacin HCl [Ciprofloxacin 500 mg PO Q12HR #6 tab 12/31/15 Unknown Rx TAB] Ibuprofen [Motrin] 600 mg PO Q6H PRN #20 tablet 12/31/15 Unknown Rx ALBUTEROL Inhaler (OR & NICU) 2 puff IH QID PRN #1 inhalation 11/25/16 Unknown Rx [ProAir HFA Inhaler] Azithromycin [Zithromax Z-MARY] 250 mg PO QDAY #6 tablet 11/25/16 Unknown Rx Naproxen [Naprosyn TAB] 500 mg PO BID PRN #14 tablet 11/25/16 Unknown Rx Ibuprofen [Motrin] 600 mg PO Q8H PRN #20 tablet 10/29/17 Unknown Rx Sulfamethoxazole/Trimethoprim 1 each PO BID #14 tablet 10/29/17 Unknown Rx [Bactrim DS TAB] Ibuprofen [Motrin] 800 mg PO Q8HR PRN #10 tablet 04/05/18 Unknown Rx traMADol [Ultram 50 MG tab] 50 mg PO Q6HR PRN #15 tablet 04/05/18 Unknown Rx Dicyclomine [Bentyl] 20 mg PO QID PRN #20 tablet 07/27/18 Unknown Rx Promethazine [Phenergan TAB] 25 mg PO Q6HR PRN #20 tab 07/27/18 Unknown Rx Famotidine [Pepcid] 40 mg PO QHS #10 tablet 11/28/18 Unknown Rx traMADol [Ultram] 50 mg PO Q6HR PRN #12 tablet 11/28/18 Unknown Rx Amoxicillin/Potassium Clav 1 each PO BID #14 tablet 08/21/19 Unknown Rx [Augmentin 875-125 Tablet] Fluticasone [Flonase] 1 spray NS QDAY #1 bottle 08/21/19 Unknown Rx traMADol [Ultram] 50 mg PO Q6HR PRN #12 tablet 08/21/19 Unknown Rx ED Physical Exam - General Limitations: No Limitations General appearance: alert, in no apparent distress - Head Head exam: Present: atraumatic, normocephalic - Expanded Head Exam Expanded 1 - With palpation 2 - Pain with palpation - Eye Eye exam: Present: normal appearance - ENT ENT exam: Present: mucous membranes moist - Neck Neck exam: Present: normal inspection - Respiratory Respiratory exam: Present: normal lung sounds bilaterally. Absent: respiratory distress, wheezes, rales, rhonchi - Cardiovascular Cardiovascular Exam: Present: regular rate, normal rhythm. Absent: systolic murmur, diastolic murmur, rubs, gallop - GI/Abdominal GI/Abdominal exam: Present: soft, normal bowel sounds - Rectal Rectal exam: Present: deferred - Extremities Exam Extremities exam: Present: normal inspection - Back Exam Back exam: Present: normal inspection - Neurological Exam Neurological exam: Present: alert, oriented X3 - Psychiatric Psychiatric exam: Present: normal affect, normal mood - Skin Skin exam: Present: warm, dry, intact, normal color. Absent: rash ED Course Vital Signs 08/21/19 11:28 Temperature 68.3 F L Pulse Rate 102 H Respiratory 16 Rate Blood Pressure 132/88 O2 Sat by Pulse 96 Oximetry ED Medical Decision Making - Lab Data Result diagrams: 08/21/19 12:30 08/21/19 12:30 - Medical Decision Making Patient clinically has acute sinusitis. Patient be started on antibiotics and be given medication for symptomatic relief. Critical care attestation.: If time is entered above; I have spent that time in minutes in the direct care of this critically ill patient, excluding procedure time. ED Disposition Clinical Impression: Acute sinusitis Qualifiers: Sinusitis location: pansinusitis Recurrence: non-recurrent Qualified Code(s): J01.40 - Acute pansinusitis, unspecified Disposition: - TO HOME OR SELFCARE Is pt being admited?: No Does the pt Need Aspirin: No Condition: Stable Instructions: Acute Bacterial Rhinosinusitis (ED) Additional Instructions: On brief review of your past medical history and chart I do not see a formal diagnosis or objective data this states that you have cirrhosis. She would like this removed from your file please follow-up with medical records. Referrals: JOSEPH PENA MD [Referring] - 3-5 Days Time of Disposition: 14:11
== END 2019-08-21 14:38 | disposition home or self-care (01) ==
LOC: ED 11:20
DX: J01.40 Acute pansinusitis, unspecified (principal)
CPT/HCPCS: 36415; 71046; 80048; 85025

== ENCOUNTER 2019-10-25 06:59 | Emergency (ER) | payer OTHER ==
[2019-10-25 07:06] VITALS: BP 138/75
[2019-10-25] MEDS ORDERED: IBUPROFEN 800 MG TAB PO ONE (09:58)
[2019-10-25] MEDS ORDERED: BENZONATATE 100 MG CAP PO ONE (09:58)
--- NOTE | 2019-10-25 10:28 | Emergency Department Report ---
Upper Respiratory HPI - HPI Duration: 1 Day URI Symptoms: Rhinorrhea: Yes, Sore Throat: No, Ear Pain: No, Cough: Yes, Shortness of Breath: No, Sick Contacts: No, Unable to Take Fluids: No, Urine Output Abnormal: No, Listless Behavior: No Other History: This is a 39-year-old male nontoxic, well nourished in appearance, no acute signs of distress presents to the ED with c/o of productive cough, frontal sinus, rhinorrhea, nasal congestion x1 day. Patient describes productive cough as yellow mucus production. Patient denies any sick contacts. Patient denies any recent travels, long car, recent hospital stays. Patient denies any calf pain or calf tenderness. Patient denies any chest pain, short of breath, fever, chills, nausea, vomiting, hemoptysis, numbness, tingling, headache or stiff neck. Patient denies any allergies or PMH. <MARIA L THRASHER - Last Filed: 10/25/19 10:41> <NATO BECKFORD - Last Filed: 10/27/19 07:27> - HPI Chief Complaint: Upper Respiratory Infection Stated Complaint: COLD SYMPTOMS Time Seen by Provider: 10/25/19 09:54 - Home Meds and Allergies Home Medications: Previous Rx's Medication Instructions Recorded Last Taken Type Folic Acid [Folvite] 1 mg PO QDAY #30 tablet 01/06/15 Unknown Rx Sucralfate [Carafate] 1 gm PO Q6HR #30 tablet 01/06/15 Unknown Rx Thiamine [Vitamin B-1] 100 mg PO QDAY #30 tablet 01/06/15 Unknown Rx HYDROcodone/APAP 5-325 [[place] 1 each PO Q6HR PRN #12 tablet 12/30/15 Unknown Rx 5/325] Ondansetron [Zofran Odt] 4 mg PO Q6HR PRN #20 tab.rapdis 12/30/15 Unknown Rx Pantoprazole [Protonix TAB] 40 mg PO QDAY #30 tablet 12/30/15 Unknown Rx Ciprofloxacin HCl [Ciprofloxacin 500 mg PO Q12HR #6 tab 12/31/15 Unknown Rx TAB] Ibuprofen [Motrin] 600 mg PO Q6H PRN #20 tablet 12/31/15 Unknown Rx Albuterol INH(or & Nicu Only) 2 puff IH QID PRN #1 inhalation 11/25/16 Unknown Rx [ProAir HFA Inhaler] Azithromycin [Zithromax Z-MARY] 250 mg PO QDAY #6 tablet 11/25/16 Unknown Rx Naproxen [Naprosyn TAB] 500 mg PO BID PRN #14 tablet 11/25/16 Unknown Rx Ibuprofen [Motrin] 600 mg PO Q8H PRN #20 tablet 10/29/17 Unknown Rx Sulfamethoxazole/Trimethoprim 1 each PO BID #14 tablet 10/29/17 Unknown Rx [Bactrim DS TAB] Ibuprofen [Motrin] 800 mg PO Q8HR PRN #10 tablet 04/05/18 Unknown Rx traMADoL [Ultram 50 MG tab] 50 mg PO Q6HR PRN #15 tablet 04/05/18 Unknown Rx Dicyclomine [Bentyl] 20 mg PO QID PRN #20 tablet 07/27/18 Unknown Rx Promethazine [Phenergan TAB] 25 mg PO Q6HR PRN #20 tab 07/27/18 Unknown Rx Famotidine [Pepcid] 40 mg PO QHS #10 tablet 11/28/18 Unknown Rx traMADoL [Ultram] 50 mg PO Q6HR PRN #12 tablet 11/28/18 Unknown Rx Amoxicillin/Potassium Clav 1 each PO BID #14 tablet 08/21/19 Unknown Rx [Augmentin 875-125 Tablet] Fluticasone [Flonase] 1 spray NS QDAY #1 bottle 08/21/19 Unknown Rx traMADoL [Ultram] 50 mg PO Q6HR PRN #12 tablet 08/21/19 Unknown Rx Amoxicillin/K Clav Tab [Augmentin 1 tab PO Q12HR #20 tab 10/25/19 Unknown Rx 875 mg] Benzonatate [Tessalon Perles] 100 mg PO Q8HR PRN #15 capsule 10/25/19 Unknown Rx Ibuprofen [Motrin] 600 mg PO Q8H PRN #20 tablet 10/25/19 Unknown Rx Allergies/Adverse Reactions: Allergies Allergy/AdvReac Type Severity Reaction Status Date / Time No Known Allergies Allergy Unverified 11/06/13 07:23 ED Review of Systems ROS: Stated complaint: COLD SYMPTOMS Other details as noted in HPI Constitutional: denies: chills, fever Eyes: denies: eye pain, eye discharge, vision change ENT: congestion. denies: ear pain, throat pain Respiratory: cough. denies: shortness of breath, wheezing Cardiovascular: denies: chest pain, palpitations Endocrine: no symptoms reported Gastrointestinal: denies: abdominal pain, nausea, diarrhea Genitourinary: denies: urgency, dysuria Musculoskeletal: denies: back pain, joint swelling, arthralgia Skin: denies: rash, lesions Neurological: denies: headache, weakness, paresthesias Psychiatric: denies: anxiety, depression Hematological/Lymphatic: denies: easy bleeding, easy bruising <MARIA L THRASHER - Last Filed: 10/25/19 10:41> ROS: Stated complaint: COLD SYMPTOMS Other details as noted in HPI <NATO BECKFORD - Last Filed: 10/27/19 07:27> ED Past Medical Hx - Past Medical History Hx Hypertension: No Hx Congestive Heart Failure: No Hx Diabetes: No Hx Liver Disease: Yes (elevated LFTs, possible acute alcholic hepatitis) Hx Seizures: No Hx Asthma: No Hx COPD: No Additional medical history: cirrhosis - Social History Smoking Status: Never Smoker <MARIA L THRASHER - Last Filed: 10/25/19 10:41> <NATO BECKFORD - Last Filed: 10/27/19 07:27> - Medications Home Medications: Home Medications Medication Instructions Recorded Confirmed Last Taken Type Folic Acid [Folvite] 1 mg PO QDAY #30 tablet 01/06/15 Unknown Rx Sucralfate [Carafate] 1 gm PO Q6HR #30 tablet 01/06/15 Unknown Rx Thiamine [Vitamin B-1] 100 mg PO QDAY #30 tablet 01/06/15 Unknown Rx HYDROcodone/APAP 5-325 [[place] 1 each PO Q6HR PRN #12 tablet 12/30/15 Unknown Rx 5/325] Ondansetron [Zofran Odt] 4 mg PO Q6HR PRN #20 tab.rapdis 12/30/15 Unknown Rx Pantoprazole [Protonix TAB] 40 mg PO QDAY #30 tablet 12/30/15 Unknown Rx Ciprofloxacin HCl [Ciprofloxacin 500 mg PO Q12HR #6 tab 12/31/15 Unknown Rx TAB] Ibuprofen [Motrin] 600 mg PO Q6H PRN #20 tablet 12/31/15 Unknown Rx Albuterol INH(or & Nicu Only) 2 puff IH QID PRN #1 inhalation 11/25/16 Unknown Rx [ProAir HFA Inhaler] Azithromycin [Zithromax Z-MARY] 250 mg PO QDAY #6 tablet 11/25/16 Unknown Rx Naproxen [Naprosyn TAB] 500 mg PO BID PRN #14 tablet 11/25/16 Unknown Rx Ibuprofen [Motrin] 600 mg PO Q8H PRN #20 tablet 10/29/17 Unknown Rx Sulfamethoxazole/Trimethoprim 1 each PO BID #14 tablet 10/29/17 Unknown Rx [Bactrim DS TAB] Ibuprofen [Motrin] 800 mg PO Q8HR PRN #10 tablet 04/05/18 Unknown Rx traMADoL [Ultram 50 MG tab] 50 mg PO Q6HR PRN #15 tablet 04/05/18 Unknown Rx Dicyclomine [Bentyl] 20 mg PO QID PRN #20 tablet 07/27/18 Unknown Rx Promethazine [Phenergan TAB] 25 mg PO Q6HR PRN #20 tab 07/27/18 Unknown Rx Famotidine [Pepcid] 40 mg PO QHS #10 tablet 11/28/18 Unknown Rx traMADoL [Ultram] 50 mg PO Q6HR PRN #12 tablet 11/28/18 Unknown Rx Amoxicillin/Potassium Clav 1 each PO BID #14 tablet 08/21/19 Unknown Rx [Augmentin 875-125 Tablet] Fluticasone [Flonase] 1 spray NS QDAY #1 bottle 08/21/19 Unknown Rx traMADoL [Ultram] 50 mg PO Q6HR PRN #12 tablet 08/21/19 Unknown Rx Amoxicillin/K Clav Tab [Augmentin 1 tab PO Q12HR #20 tab 10/25/19 Unknown Rx 875 mg] Benzonatate [Tessalon Perles] 100 mg PO Q8HR PRN #15 capsule 10/25/19 Unknown Rx Ibuprofen [Motrin] 600 mg PO Q8H PRN #20 tablet 10/25/19 Unknown Rx ED Bronchiolitis Physical Exam - Exam General: Vital signs noted. No distress. Alert and acting appropriately. Neurologic: Alert and oriented, no deficits. Musculoskeletal: Unremarkable. <MARIA L THRASHER - Last Filed: 10/25/19 10:41> - Exam General: Vital signs noted. No distress. Alert and acting appropriately. Neurologic: Alert and oriented, no deficits. Musculoskeletal: Unremarkable. <NATO BECKFORD P - Last Filed: 10/27/19 07:27> ED Physical Exam - General Limitations: No Limitations General appearance: alert, in no apparent distress - Head Head exam: Present: atraumatic, normocephalic, other (frontal sinus tenderness) - Eye Eye exam: Present: normal appearance, PERRL, EOMI - ENT ENT exam: Present: normal exam, normal orophraynx - Neck Neck exam: Present: normal inspection, full ROM. Absent: tenderness, meningismus, lymphadenopathy - Respiratory Respiratory exam: Present: normal lung sounds bilaterally. Absent: respiratory distress, wheezes, rales, rhonchi, stridor, chest wall tenderness, accessory muscle use, decreased breath sounds, prolonged expiratory - Cardiovascular Cardiovascular Exam: Present: regular rate, normal rhythm, normal heart sounds. Absent: bradycardia, tachycardia, irregular rhythm, systolic murmur, diastolic murmur, rubs, gallop - Extremities Exam Extremities exam: Present: normal inspection, full ROM - Back Exam Back exam: Present: normal inspection, full ROM - Neurological Exam Neurological exam: Present: alert, oriented X3, normal gait - Psychiatric Psychiatric exam: Present: normal affect, normal mood - Skin Skin exam: Present: warm, dry, intact, normal color. Absent: rash <MARIA L THRASHER - Last Filed: 10/25/19 10:41> ED Course Vital Signs 10/25/19 07:04 Temperature 98.1 F Pulse Rate 86 Respiratory 18 Rate Blood Pressure 138/75 O2 Sat by Pulse 96 Oximetry - Reevaluation(s) Reevaluation #1: 10/25/19 10:28 Patient is speaking in full sentences with no signs of distress noted. <MARIA L THRASHER - Last Filed: 10/25/19 10:41> Vital Signs 10/25/19 07:04 Temperature 98.1 F Pulse Rate 86 Respiratory 18 Rate Blood Pressure 138/75 O2 Sat by Pulse 96 Oximetry <NATO BECKFORD - Last Filed: 10/27/19 07:27> ED Medical Decision Making - Medical Decision Making This is a 39-year-old male that presents with bronchitis and sinusitis. Patient is stable and was examined by me. Chest x-ray has been obtained and dictated by radiologist with normal exam. Patient is notified of x-ray results with no questions noted. Patient be treated with Augmentin.. Patient was instructed to increase hydration, rest and take Motrin for fever episodes. Patient received motrin and tesslone perrls in the ED. Vitals stable. Patient is nonfebrile and normal heart rate. Patient was instructed Follow-up with a primary care doctor in 3-5 days or if symptoms worsen and continue return to emergency room as soon as possible. At time time of discharge, the patient does not seem toxic or ill in appearance. No acute signs of distress noted. Patient agrees to discharge treatment plan of care. No further questions noted by the patient. <MARIA L THRASHER - Last Filed: 10/25/19 10:41> - Medical Decision Making Attestation: Available for consultation <NATO BECKFORD - Last Filed: 10/27/19 07:27> Critical care attestation.: If time is entered above; I have spent that time in minutes in the direct care of this critically ill patient, excluding procedure time. <MARIA L THRASHER - Last Filed: 10/25/19 10:41> Critical care attestation.: If time is entered above; I have spent that time in minutes in the direct care of this critically ill patient, excluding procedure time. <NATO BECKFORD P - Last Filed: 10/27/19 07:27> ED Disposition Is pt being admited?: No Does the pt Need Aspirin: No <MARIA L THRASHER - Last Filed: 10/25/19 10:41> Is pt being admited?: No <NATO BECKFORD - Last Filed: 10/27/19 07:27> Clinical Impression: Bronchitis Disposition: DC-01 TO HOME OR SELFCARE Condition: Stable Instructions: Sinusitis (ED), Acute Bronchitis (ED), Chronic Bronchitis (ED) Additional Instructions: Follow-up with a primary care doctor in 3-5 days or if symptoms worsen and continue return to emergency room as soon as possible. Increased rest, hydration, and take Motrin/Tylenol as prescribed for fever episode. Prescriptions: Amoxicillin/K Clav Tab [Augmentin 875 mg] 1 tab PO Q12HR #20 tab Ibuprofen [Motrin] 600 mg PO Q8H PRN #20 tablet PRN Reason: Pain Benzonatate [Tessalon Perles] 100 mg PO Q8HR PRN #15 capsule PRN Reason: Cough Referrals: PRIMARY CAREMD [Primary Care Provider] - 3-5 Days RICHIE GODINEZ MD [Staff Physician] - 3-5 Days [facility] [Outside] - 3-5 Days Forms: Work/School Release Form(ED)
--- NOTE | 2019-10-25 10:30 | XRay Report ---
CHEST 2 VIEWS INDICATION: cough. COMPARISON: 08/21/2019 FINDINGS: Support devices: None. Heart: Within normal limits. Lungs/pleura: No acute air space or interstitial disease. No pneumothorax. Additional findings: None. IMPRESSION: Normal chest x-ray Signer Name: Sergio Lloyd Jr, MD Signed: 10/25/2019 10:26 AM Workstation Name: [id number]
== END 2019-10-25 10:51 | disposition home or self-care (01) ==
LOC: ED 06:59
DX: J40 Bronchitis, not specified as acute or chronic (principal); Z79.1 Long term (current) use of non-steroidal anti-inflammatories (NSAID); Z79.2 Long term (current) use of antibiotics; Z79.899 Other long term (current) drug therapy
CPT/HCPCS: 71046

== ENCOUNTER 2020-02-13 10:18 | Emergency (ER) | payer OTHER ==
[2020-02-13 10:50] VITALS: BP 129/84
[2020-02-13] MEDS ORDERED: ERYTHROMYCIN 5 MG/1 GM OPHTH OINT OU ONE (12:25)
--- NOTE | 2020-02-13 12:25 | Emergency Department Report ---
ED Eye Problem HPI - General Chief complaint: Eye Problems Stated complaint: LFT EYE PAIN Time Seen by Provider: 02/13/20 12:19 Source: patient Mode of arrival: Ambulatory Limitations: No Limitations - History of Present Illness Initial comments: 39 yo comes to er with sensation fb in left eye. L eye red. eoms intact. globe intact. perrl. no change in vision. tdap utd ambulatory to er; drove in poc; no tearing - Related Data Previous Rx's Medication Instructions Recorded Last Taken Type Folic Acid [Folvite] 1 mg PO QDAY #30 tablet 01/06/15 Unknown Rx Sucralfate [Carafate] 1 gm PO Q6HR #30 tablet 01/06/15 Unknown Rx Thiamine [Vitamin B-1] 100 mg PO QDAY #30 tablet 01/06/15 Unknown Rx Pantoprazole [Protonix TAB] 40 mg PO QDAY #30 tablet 12/30/15 Unknown Rx Albuterol INH(or & Nicu Only) 2 puff IH QID PRN #1 inhalation 11/25/16 Unknown Rx [ProAir HFA Inhaler] Dicyclomine [Bentyl] 20 mg PO QID PRN #20 tablet 07/27/18 Unknown Rx Famotidine [Pepcid] 40 mg PO QHS #10 tablet 11/28/18 Unknown Rx Fluticasone [Flonase] 1 spray NS QDAY #1 bottle 08/21/19 Unknown Rx Erythromycin [Erythromycin Ophth 1 applic OS Q6H #1 tube 02/13/20 Unknown Rx Oint] Allergies Allergy/AdvReac Type Severity Reaction Status Date / Time No Known Allergies Allergy Verified 02/13/20 10:49 ED Review of Systems ROS: Stated complaint: LFT EYE PAIN Other details as noted in HPI Comment: All other systems reviewed and negative ED Past Medical Hx - Past Medical History Previous Medical History?: Yes Hx Hypertension: No Hx Congestive Heart Failure: No Hx Diabetes: No Hx Liver Disease: Yes (elevated LFTs, possible acute alcholic hepatitis) Hx Seizures: No Hx Asthma: No Hx COPD: No Additional medical history: cirrhosis - Surgical History Past Surgical History?: No - Family History Family history: no significant - Social History Smoking Status: Current Every Day Smoker Substance Use Type: Alcohol - Medications Home Medications: Home Medications Medication Instructions Recorded Confirmed Last Taken Type Folic Acid [Folvite] 1 mg PO QDAY #30 tablet 01/06/15 Unknown Rx Sucralfate [Carafate] 1 gm PO Q6HR #30 tablet 01/06/15 Unknown Rx Thiamine [Vitamin B-1] 100 mg PO QDAY #30 tablet 01/06/15 Unknown Rx Pantoprazole [Protonix TAB] 40 mg PO QDAY #30 tablet 12/30/15 Unknown Rx Albuterol INH(or & Nicu Only) 2 puff IH QID PRN #1 inhalation 11/25/16 Unknown Rx [ProAir HFA Inhaler] Dicyclomine [Bentyl] 20 mg PO QID PRN #20 tablet 07/27/18 Unknown Rx Famotidine [Pepcid] 40 mg PO QHS #10 tablet 11/28/18 Unknown Rx Fluticasone [Flonase] 1 spray NS QDAY #1 bottle 08/21/19 Unknown Rx Erythromycin [Erythromycin Ophth 1 applic OS Q6H #1 tube 02/13/20 Unknown Rx Oint] ED Physical Exam - General Limitations: No Limitations General appearance: alert, in no apparent distress - Head Head exam: Present: atraumatic, normocephalic - Eye Eye exam: Present: PERRL, EOMI - ENT ENT exam: Present: mucous membranes moist - Neck Neck exam: Present: normal inspection - Respiratory Respiratory exam: Present: normal lung sounds bilaterally. Absent: respiratory distress - Cardiovascular Cardiovascular Exam: Present: regular rate, normal rhythm. Absent: systolic murmur, diastolic murmur, rubs, gallop - GI/Abdominal GI/Abdominal exam: Present: soft, normal bowel sounds - Rectal Rectal exam: Present: deferred - Extremities Exam Extremities exam: Present: normal inspection - Back Exam Back exam: Present: normal inspection - Neurological Exam Neurological exam: Present: alert, oriented X3 - Psychiatric Psychiatric exam: Present: normal affect, normal mood - Skin Skin exam: Present: warm, dry, intact, normal color. Absent: rash ED Course Vital Signs 02/13/20 10:48 Temperature 98.4 F Pulse Rate 91 H Respiratory 20 Rate Blood Pressure 129/84 O2 Sat by Pulse 98 Oximetry ED Medical Decision Making - Medical Decision Making Vital Signs 02/13/20 10:48 Temperature 98.4 F Pulse Rate 91 H Respiratory 20 Rate Blood Pressure 129/84 O2 Sat by Pulse 98 Oximetry tetracaine to eye stain to l eye with inc uptake erythromyocin oint- does not wear contacts. no fb noted - Differential Diagnosis ro fb in eye / abrasion/ laceration Critical care attestation.: If time is entered above; I have spent that time in minutes in the direct care of this critically ill patient, excluding procedure time. ED Disposition Clinical Impression: Corneal abrasion Disposition: DC-01 TO HOME OR SELFCARE Is pt being admited?: No Does the pt Need Aspirin: No Condition: Stable Instructions: Corneal Abrasion (ED) Additional Instructions: med as ordered today follow up with eye MD in 48 hours do not rub eyes wear protective eye wear Prescriptions: Erythromycin [Erythromycin Ophth Oint] 1 applic OS Q6H #1 tube Referrals: TREY CHEATHAM MD [Staff Physician] - 3-5 Days Forms: Work/School Release Form(ED) Time of Disposition: 12:50
[2020-02-13] MEDS: FLUORESCEIN 1 MG STRIP OP ONE (12:38)
[2020-02-13] MEDS: TETRACAINE 0.5% OPHTH SOLN 4ML OU ONE (12:39)
== END 2020-02-13 13:30 | disposition home or self-care (01) ==
LOC: ED 10:18
DX: S05.02XA Injury of conjunctiva and corneal abrasion without foreign body, left eye, initial encounter (principal); F17.200 Nicotine dependence, unspecified, uncomplicated; Z79.899 Other long term (current) drug therapy; X58.XXXA Exposure to other specified factors, initial encounter; Y93.89 Activity, other specified; Y92.89 Other specified places as the place of occurrence of the external cause; Y99.8 Other external cause status

== ENCOUNTER 2020-02-23 09:15 | Emergency (ER) | payer OTHER ==
[2020-02-23 09:43] VITALS: BP 121/72
--- NOTE | 2020-02-23 10:54 | Emergency Department Report ---
Chief Complaint: Back Pain/Injury Stated Complaint: LOWER BACK/HEADACHE Time Seen by Provider: 02/23/20 10:50 - HPI History of Present Illness: 39-year-old -[place] male no acute distress nontoxic presents to the emergency room for lower back pain after lifting a dresser yesterday and a headache. Patient states he has taken nothing for his pain. Patient reports he takes no medications at all. Patient reports that he just needs a work excuse. Patient denies no other complaints. Patient denies any blunt force injury no fall no urinary or bowel incontinence. Has a past medical history of liver disease possible acute acute alcohol hepatitis. Takes no medications on a daily basis has no known drug allergies. - Exam Vital Signs: Vital Signs 02/23/20 09:42 Temperature 97.9 F Pulse Rate 83 Respiratory 20 Rate Blood Pressure 121/72 O2 Sat by Pulse 95 Oximetry Physical Exam: Alert and oriented x3 no acute distress nontoxic in appearance Back full range of motion mild paraspinal tenderness no vertebral tenderness Amatory without difficulty. MSE screening note: Focused history and physical exam performed. Due to findings the following was ordered: 39-year-old -[place] male no acute distress nontoxic presents to the emergency room for lower back pain after lifting a dresser yesterday and a headache. Patient states he has taken nothing for his pain. Patient reports he takes no medications at all. Patient reports that he just needs a work excuse. Patient denies no other complaints. Patient denies any blunt force injury no fall no urinary or bowel incontinence. Has a past medical history of liver disease possible acute acute alcohol hepatitis. Takes no medications on a daily basis has no known drug allergies. I discussed with patient that he does not need any x-rays as the mechanism does not warrant as well as an examination. Patient has full range of motion amatory without difficulties. Discussed with patient he can take Tylenol or ibuprofen as needed for pain management ED Disposition for MSE Disposition: Z-07 MED SCREENING EXAM-LEFT Is pt being admited?: No Does the pt Need Aspirin: No Condition: Stable Additional Instructions: Recommend taking [id number] Tylenol or ibuprofen for pain management. You can use [id number] Biofreeze or or Aspercreme to your back. Follow-up with your primary care provider. Referrals: PRIMARY CARE [Primary Care Provider] - 3-5 Days [facility] [Provider Group] - 3-5 Days
== END 2020-02-23 11:00 | disposition left against medical advice (07) ==
LOC: ED 09:15
DX: M54.5 Low back pain (principal); R51 Headache
CPT/HCPCS: 99281

== ENCOUNTER 2020-04-04 08:45 | Emergency (ER) | payer OTHER ==
[2020-04-04] MEDS ORDERED: DIPHtheria,PERTUSSIS(ACELL),TETANUS VACCINE/PF 0.5 ML VIAL IM ONE (09:55)
[2020-04-04] MEDS ORDERED: LIDOCAINE (1%) 10 MG/1 ML VIAL 20 ML MDV INFILTRATI ONE (09:55)
[2020-04-04] MEDS ORDERED: SODIUM CHLORIDE IRRI 500 ML 500 ML IR ONE ×2 (09:55→09:59)
--- NOTE | 2020-04-04 10:00 | Emergency Department Report ---
Upper Extremity - HPI Chief Complaint: Wound/Laceration Stated Complaint: LACERATION TO FINGERS Time Seen by Provider: 04/04/20 09:30 Upper Extremity: Left Hand, Left Thumb, Left Index Finger, Left Middle Finger, Left Ring Finger Occurred When: Today Mechanism: Hit with Object Severity: moderate Symptoms: Yes Pain with Movement, Yes Limited Range of Movement, Yes Numbness, Yes Laceration or Abrasion, No Deformity, No Weakness, No Swelling, No Bruising/Ecchymosis Other History: 39 yr old male presents to ED c/o laceration to fingers of left hand. Pt states that while at work he was using a wheel truing machine tender this morning and he states the carbide grinder shattered cutting the volar aspect of t fingers of left hand. He was not wearing gloves. He reports some numbness to 2nd and 4th finger and pain with flex and ext of fingers. He denies any weakness, bruising or redness or other symptoms at this time. ED Review of Systems ROS: Stated complaint: LACERATION TO FINGERS Other details as noted in HPI Comment: All other systems reviewed and negative Musculoskeletal: joint swelling, arthralgia Skin: other (laceration/abrasions fingers) ED Past Medical Hx - Past Medical History Previous Medical History?: Yes Hx Hypertension: No Hx Congestive Heart Failure: No Hx Diabetes: No Hx Liver Disease: Yes (elevated LFTs, possible acute alcholic hepatitis) Hx Seizures: No Hx Asthma: No Hx COPD: No Additional medical history: cirrhosis - Surgical History Past Surgical History?: No - Social History Smoking Status: Current Every Day Smoker Substance Use Type: None - Medications Home Medications: Home Medications Medication Instructions Recorded Confirmed Last Taken Type Folic Acid [Folvite] 1 mg PO QDAY #30 tablet 01/06/15 Unknown Rx Sucralfate [Carafate] 1 gm PO Q6HR #30 tablet 01/06/15 Unknown Rx Thiamine [Vitamin B-1] 100 mg PO QDAY #30 tablet 01/06/15 Unknown Rx Pantoprazole [Protonix TAB] 40 mg PO QDAY #30 tablet 12/30/15 Unknown Rx Albuterol INH(or & Nicu Only) 2 puff IH QID PRN #1 inhalation 11/25/16 Unknown Rx [ProAir HFA Inhaler] Dicyclomine [Bentyl] 20 mg PO QID PRN #20 tablet 07/27/18 Unknown Rx Famotidine [Pepcid] 40 mg PO QHS #10 tablet 11/28/18 Unknown Rx Fluticasone [Flonase] 1 spray NS QDAY #1 bottle 08/21/19 Unknown Rx Erythromycin [Erythromycin Ophth 1 applic OS Q6H #1 tube 02/13/20 Unknown Rx Oint] Bacitracin Zinc/Polymyxin B 15 gm TP BID #90 oint...g. 04/04/20 Unknown Rx [Bacitracin-Polymyxin Ointment] Tramadol HCl/Acetaminophen 1 each PO Q6HR PRN #12 tablet 04/04/20 Unknown Rx [Ultracet Tablet] cephALEXin [Keflex] 500 mg PO Q8HR #15 cap 04/04/20 Unknown Rx Upper Extremity Exam - Exam General: Vital signs noted. No distress. Alert and acting appropriately. Head and Torso: No HEENT Abnormality, No Neck Tenderness, No Chest/Lungs Abnormality, No Abdominal Tenderness, No Back Tenderness Shoulder Exam: No Shoulder Tenderness, No Clavicle Tenderness, No Normal Range of Motion in Shoulder, No Shoulder Deformity, No AC Joint Tenderness Arm Exam: No Arm/Humerus Tenderness, No Arm Deformity Elbow: No Elbow Tenderness, No Normal Range of Motion in Elbow, No Elbow Deformity Forearm: No Forearm Tenderness, No Forearm Deformity, No Pain with Pronation, No Pain with Supination Wrist: No Wrist Tenderness, No Normal ROM in Wrist, No Wrist Deformity, No Snuffbox Tenderness, No Pain with Axial Thumb Compression Hand: Yes Digit Tenderness (Liner superficial laceration noted to volar aspect of 2nd finger crosses the PIP joint, it appears superficial, no tendon involvement, he does have limited flex of that finger at level of PIP joint due to pain; slight decrease in sensation over proximal finger at volar aspect; cap refill nl:: supeficial avulsion/flap lac noted also volar aspect of 4th finger at level of DIP phalanx, no apparent tendon involvement, slight decrease sensation tip of the finger, mild decrease in flexion at level of DIP joint due to pain from laceration; cap refill nl; there are very superfical abrasion noted th left thumb volar and left 3rd fingers: no defrormity to any fingers; no active bleeding), Yes Normal ROM in Digit(s), No Hand Tenderness, No Hand Deformity, No Digit(s) Deformity, No Tendon Dysfunction ED Course Vital Signs 04/04/20 08:49 Temperature 98.1 F Pulse Rate 80 Respiratory 20 Rate Blood Pressure 133/94 O2 Sat by Pulse 97 Oximetry - Laceration /Wound Repair Finger Wound Location: upper extremity (2nd finger and 4th finger) Wound's Depth, Shape: superficial Wound Explored: clean Irrigated w/ Saline (ccs): 100 Betadine Prep?: Yes Anesthesia: 1% Lidocaine Volume Anesthetic (ccs): 10 Wound Debrided: minimal Wound Repaired With: sutures Suture Size/Type: 4:0, proline Number of Sutures: 11 (total ) Layer Closure?: No Sterile Dressing Applied?: Yes Progress: Pt tolerated procedure well. No complications. ED Medical Decision Making - Radiology Data Radiology results: report reviewed Finger lac to left 2nd and 4th fingers. They are superficial lacs without tendon injury. No significant neuro deficits and nl cap refill. xray show nothing acute. Lac repaired by me, see note for detail. Wound care discussed with patient. Pt stable a tme of d/c. Critical care attestation.: If time is entered above; I have spent that time in minutes in the direct care of this critically ill patient, excluding procedure time. ED Disposition Clinical Impression: Finger laceration Disposition: DC-01 TO HOME OR SELFCARE Is pt being admited?: No Does the pt Need Aspirin: No Condition: Stable Instructions: Laceration (ED) Additional Instructions: Keep wound clean daily with soap and water, dry well after each cleaning then apply small amount of antibiotic ointment to wounds the cover. You can wear finger splint for about 1 week to limit movement to aid in healing. Do not use peroxide or alcohol. Sutures will need to be removed in about 2 weeks. You can return to the ER or follow-up if PCP for suture removal. Take antibiotics as prescribed. You can also take the medication prescribed for pain as needed. If any signs and symptoms of infection such as pus drainage increasing redness and swelling return to the ER. Prescriptions: Bacitracin Zinc/Polymyxin B [Bacitracin-Polymyxin Ointment] 15 gm TP BID #90 oint...g. cephALEXin [Keflex] 500 mg PO Q8HR #15 cap Tramadol HCl/Acetaminophen [Ultracet Tablet] 1 each PO Q6HR PRN #12 tablet PRN Reason: Pain , Severe (7-10) Referrals: RICHIE GODINEZ MD [Staff Physician] - 04/18/20 Forms: Work/School Release Form(ED) Time of Disposition: 11:16
[2020-04-04] MEDS ORDERED: SODIUM CHLORIDE 0.9% IRR 500 ML BOTTLE IR ONE ×2 (10:06)
[2020-04-04] MEDS ORDERED: SODIUM CHLORIDE 0.9% IRR 1,000 ML BOTTLE IR ONE (10:15)
--- NOTE | 2020-04-04 10:31 | XRay Report ---
LEFT HAND 3 VIEWS INDICATION: finger laceration. COMPARISON: None. IMPRESSION: No acute osseous or soft tissue abnormality. No significant DJD. Signer Name: Sergio Lloyd Jr, MD Signed: 04/04/2020 10:27 AM Workstation Name: [id number]
[2020-04-04] MEDS ORDERED: NEOMY 3.5 MG/BACIT 400 UNITS/POLY B 5000 UNITS/GM OINT PACKET TP ONE (11:09)
[2020-04-04] MEDS ORDERED: BACITRACIN/POLYMYXIN B OINT 28.35 GM TP ONE (11:17)
[2020-04-04 11:31] VITALS: BP 121/79
== END 2020-04-04 11:29 | disposition home or self-care (01) ==
LOC: ED 08:45
DX: S61.211A Laceration without foreign body of left index finger without damage to nail, initial encounter (principal); F17.200 Nicotine dependence, unspecified, uncomplicated; Z79.899 Other long term (current) drug therapy; W31.89XA Contact with other specified machinery, initial encounter; Y93.89 Activity, other specified; Y92.89 Other specified places as the place of occurrence of the external cause; Y99.8 Other external cause status
CPT/HCPCS: 90471; 90715; A6250

== ENCOUNTER 2020-11-29 01:32 | Emergency (ER) | payer OTHER ==
[2020-11-29] MEDS ORDERED: ASPIRIN 325 MG TAB PO ONE (01:57)
--- NOTE | 2020-11-29 02:00 | Event Note ---
ED Screening Note Date of service: 11/29/20 Time: 01:59 ED Screening Note: Patient is a 40-year-old male who presents for chest pain x3 hours pain. Patient states pain awakened him from his sleep tonight. Patient denies history of GERD. Patient states he did not eat dinner today. Patient states intermittent cough with low-grade fever as well. There is no diaphoresis, no nausea vomiting. Symptoms are exacerbated by activity and movement. Symptoms are relieved by nothing tried. Patient is not on any medications. Patient denies medical history. Extensive scabs 2-3 231 This initial assessment/diagnostic orders/clinical plan/treatment(s) is/are subject to change based on patients health status, clinical progression and re- assessment by fellow clinical providers in the ED. Further treatment and workup at subsequent clinical providers discretion. Patient/guardian urged not to elope from the ED as their condition may be serious if not clinically assessed and managed. Initial orders include:
[2020-11-29] MEDS ORDERED: SODIUM CHLORIDE 0.9% 1000 ML 1,000 ML IV ONE (02:31)
[2020-11-29] MEDS ORDERED: dexAMETHasone 4 MG/ML VIAL IV ONE (02:31)
--- NOTE | 2020-11-29 02:32 | Emergency Department Report ---
ED Chest Pain HPI - General Chief Complaint: Chest Pain Stated Complaint: SOB/CHEST PAIN PUI?: Yes Time Seen by Provider: 11/29/20 02:27 Source: patient Mode of arrival: Stretcher Limitations: No Limitations - History of Present Illness Initial Comments: Patient is a 40-year-old male that presents emergency room with complaints of chest pain, headache and difficulty breathing. Patient states she is also had chills. Patient states his symptoms started yesterday. Patient symptoms are worsening. Patient states he has not been tested for COVID-19. Patient states that chest pain is better with rest. Patient dates his chest pain is worse with palpation and deep breath. Patient states shortness of breath better with rest and worse with exertion. Patient also complains of fever and cough. Patient states his cough is dry. Patient denies nausea and vomiting. Patient denies diarrhea. Patient denies loss of smell. Patient denies recent travel. Patient denies recent international travel. Patient denies exposure to the novel coronavirus. Patient denies sick contacts. Patient denies diarrhea. Patient denies coming in contact with anybody with symptoms of the novel coronavirus. MD Complaint: chest pain -: Sudden Onset: during rest Pain Location: left chest, right chest Pain Radiation: none Severity: severe Severity scale (0 -10): 10 Quality: sharp Consistency: constant Improves With: rest Worsens With: inspiration, palpation, movement Context: recent illness re: dyspnea. denies: nausea, vomting, diaphoresis Other Symptoms: cough, fever. denies: syncope, rash, acid taste in mouth, leg swelling, palpitations, other Treatments Prior to Arrival: none Aspirin use within the Past 7 Days: (0) No - Related Data On Oral Contraceptives: No Previous Rx's Medication Instructions Recorded Last Taken Type Folic Acid [Folvite] 1 mg PO QDAY #30 tablet 01/06/15 Unknown Rx Sucralfate [Carafate] 1 gm PO Q6HR #30 tablet 01/06/15 Unknown Rx Thiamine [Vitamin B-1] 100 mg PO QDAY #30 tablet 01/06/15 Unknown Rx Pantoprazole [Protonix TAB] 40 mg PO QDAY #30 tablet 12/30/15 Unknown Rx Albuterol Mdi (or & Nicu Only) 2 puff IH QID PRN #1 inhalation 11/25/16 Unknown Rx [ProAir HFA Inhaler] Dicyclomine [Bentyl] 20 mg PO QID PRN #20 tablet 07/27/18 Unknown Rx Famotidine [Pepcid] 40 mg PO QHS #10 tablet 11/28/18 Unknown Rx Fluticasone [Flonase] 1 spray NS QDAY #1 bottle 08/21/19 Unknown Rx Erythromycin [Erythromycin Ophth 1 applic OS Q6H #1 tube 02/13/20 Unknown Rx Oint] Bacitracin Zinc/Polymyxin B 15 gm TP BID #90 oint...g. 04/04/20 Unknown Rx [Bacitracin-Polymyxin Ointment] Tramadol HCl/Acetaminophen 1 each PO Q6HR PRN #12 tablet 04/04/20 Unknown Rx [Ultracet Tablet] cephALEXin [Keflex] 500 mg PO Q8HR #15 cap 04/04/20 Unknown Rx Azithromycin [Zithromax TAB] 500 mg PO QDAY 5 Days #5 tablet 11/29/20 Unknown Rx methylPREDNISolone [Medrol 4MG 4 mg PO DAILY 6 Days #1 tab.ds.pk 11/29/20 Unknown Rx DOSEPAK (21 tabs)] Allergies Allergy/AdvReac Type Severity Reaction Status Date / Time No Known Allergies Allergy Verified 02/23/20 09:42 Heart Score - HEART Score History: Slightly suspicious EKG: Normal Age: < 45 Risk factors: No known risk factors Troponin: < normal limit HEART Score: 0 ED Review of Systems ROS: Stated complaint: SOB/CHEST PAIN Other details as noted in HPI Constitutional: chills, fever Eyes: denies: eye pain, eye discharge, vision change ENT: denies: ear pain, throat pain Respiratory: cough, shortness of breath. denies: wheezing Cardiovascular: chest pain. denies: palpitations Endocrine: no symptoms reported Gastrointestinal: denies: abdominal pain, nausea, diarrhea Genitourinary: denies: urgency, dysuria Musculoskeletal: denies: back pain, joint swelling, arthralgia Skin: denies: rash, lesions Neurological: denies: headache, weakness, paresthesias Psychiatric: denies: anxiety, depression Hematological/Lymphatic: denies: easy bleeding, easy bruising ED Past Medical Hx - Past Medical History Previous Medical History?: Yes Hx Hypertension: No Hx Congestive Heart Failure: No Hx Diabetes: No Hx Liver Disease: Yes (elevated LFTs, possible acute alcholic hepatitis) Hx Seizures: No Hx Asthma: No Hx COPD: No Additional medical history: cirrhosis - Surgical History Past Surgical History?: No - Family History Family history: no significant - Social History Smoking Status: Current Every Day Smoker Substance Use Type: Alcohol - Medications Home Medications: Home Medications Medication Instructions Recorded Confirmed Last Taken Type Folic Acid [Folvite] 1 mg PO QDAY #30 tablet 01/06/15 Unknown Rx Sucralfate [Carafate] 1 gm PO Q6HR #30 tablet 01/06/15 Unknown Rx Thiamine [Vitamin B-1] 100 mg PO QDAY #30 tablet 01/06/15 Unknown Rx Pantoprazole [Protonix TAB] 40 mg PO QDAY #30 tablet 12/30/15 Unknown Rx Albuterol Mdi (or & Nicu Only) 2 puff IH QID PRN #1 inhalation 11/25/16 Unknown Rx [ProAir HFA Inhaler] Dicyclomine [Bentyl] 20 mg PO QID PRN #20 tablet 07/27/18 Unknown Rx Famotidine [Pepcid] 40 mg PO QHS #10 tablet 11/28/18 Unknown Rx Fluticasone [Flonase] 1 spray NS QDAY #1 bottle 08/21/19 Unknown Rx Erythromycin [Erythromycin Ophth 1 applic OS Q6H #1 tube 02/13/20 Unknown Rx Oint] Bacitracin Zinc/Polymyxin B 15 gm TP BID #90 oint...g. 04/04/20 Unknown Rx [Bacitracin-Polymyxin Ointment] Tramadol HCl/Acetaminophen 1 each PO Q6HR PRN #12 tablet 04/04/20 Unknown Rx [Ultracet Tablet] cephALEXin [Keflex] 500 mg PO Q8HR #15 cap 04/04/20 Unknown Rx Azithromycin [Zithromax TAB] 500 mg PO QDAY 5 Days #5 tablet 11/29/20 Unknown Rx methylPREDNISolone [Medrol 4MG 4 mg PO DAILY 6 Days #1 tab.ds.pk 11/29/20 Unknown Rx DOSEPAK (21 tabs)] ED Physical Exam - General Limitations: No Limitations General appearance: alert, in no apparent distress - Head Head exam: Present: atraumatic, normocephalic - Eye Eye exam: Present: normal appearance - ENT ENT exam: Present: mucous membranes moist - Neck Neck exam: Present: normal inspection - Respiratory Respiratory exam: Present: normal lung sounds bilaterally, chest wall tenderness (Bilateral chest wall tenderness to palpation. Palpation of the chest wall reproduces symptoms.). Absent: respiratory distress - Cardiovascular Cardiovascular Exam: Present: regular rate, normal rhythm. Absent: systolic murmur, diastolic murmur, rubs, gallop - GI/Abdominal GI/Abdominal exam: Present: soft, normal bowel sounds - Rectal Rectal exam: Present: deferred - Extremities Exam Extremities exam: Present: normal inspection - Back Exam Back exam: Present: normal inspection - Neurological Exam Neurological exam: Present: alert, oriented X3 - Psychiatric Psychiatric exam: Present: normal affect, normal mood - Skin Skin exam: Present: warm, dry, intact, normal color. Absent: rash ED Course Vital Signs 11/29/20 11/29/20 11/29/20 01:49 02:08 02:30 Temperature 100.5 F H Pulse Rate 106 H 95 H Respiratory 18 17 Rate Blood Pressure 135/79 119/83 O2 Sat by Pulse 97 98 98 Oximetry 11/29/20 02:50 Temperature Pulse Rate Respiratory 18 Rate Blood Pressure O2 Sat by Pulse Oximetry - Reevaluation(s) Reevaluation #1: Patient tolerated ambulation. Patient saturation maintained during ambulation. Patient states that he never got the same patient patient's vital signs have been stable in the ER. Patient states his headache is better. Patient's chest pain shortness of breath improved. I discussed all results and clinical findings with patient. I discussed plan of care with patient. Patient agrees with plan of care. Patient is stable for discharge. Patient will be discharged home. Patient given discharge instructions. Patient voiced understanding of discharge instructions. 11/29/20 04:32 Reevaluation #2: Patient's fluids have finished. Patient states he is feeling much better. 11/29/20 05:55 DANII score - Danii Score Age > 65: (0) No Aspirin use within the Past 7 Days: (0) No 3 or more CAD Risk Factors: (0) No 2 or more Angina events in past 24 hrs: (0) No Known CAD with more than 50% Stenosis: (0) No Elevated Cardiac Markers: (0) No ST Deviation Greater than 0.5mm: (0) No DANII Score: 0 ED Medical Decision Making - Lab Data Result diagrams: 11/29/20 02:12 02/12/21 02:12 - EKG Data -: EKG Interpreted by Me EKG shows normal: sinus rhythm, axis, intervals, QRS complexes, ST-T waves Rate: normal - Radiology Data Radiology results: report reviewed, image reviewed interpreted by me: Chest x-ray: Chest x-ray has a viral pneumonia previously, no pneumothorax, no foreign body, no osseous findings, CHEST 1 VIEW 11/29/2020 2:07 AM INDICATION / CLINICAL INFORMATION: Chest Pain. COMPARISON: 10/25/19 FINDINGS: SUPPORT DEVICES: None. HEART / MEDIASTINUM: No significant abnormality. LUNGS / PLEURA: Suboptimal inspiration with low lung volumes and mild bibasilar atelectasis. No pneumothorax. ADDITIONAL FINDINGS: Incidental note of small bilateral cervical ribs. IMPRESSION: 1. Mild bibasilar atelectasis. - Medical Decision Making Patient is a 40-year-old male presents emergency room with complaints of headache, chest pain, shortness of breath, fever, chills, body aches. Patient had a chest x-ray which shows bilateral pneumonia. Patient had labs done which were essentially unremarkable. Patient given steroids for presumed COVID-19 infection and his headache. Patient's headache improved after steroid injection. Patient saturation and vital signs remained stable. Patient was ambulated in the ER and his oxygen saturation maintained stable. Patient oxygen saturation never fell below 97% while in the ER. Patient's chest pain improved with steroids. Patient shortness of breath improved with steroids. Patient declines are consistent with upper respiratory infection, COVID-19. Patient is stable for discharge. Patient was discharged home. Patient given COVID-19 instructions I discussed all results and clinical findings with patient. I discussed plan of care with patient. Patient agrees with plan of care. Patient is stable for discharge. Patient will be discharged home. Patient given discharge instructions. Patient voiced understanding of discharge instructions and discharge instructions. - Differential Diagnosis Pneumonia, Covid, chest pain, shortness of breath, fever, chills, headache Critical care attestation.: If time is entered above; I have spent that time in minutes in the direct care of this critically ill patient, excluding procedure time. ED Disposition Clinical Impression: Acute costochondritis, SOB (shortness of breath), Person under investigation for COVID-19, Viral pneumonia, Dehydration Chest pain Qualifiers: Chest pain type: unspecified Qualified Code(s): R07.9 - Chest pain, unspecified Headache Qualifiers: Headache type: unspecified Headache chronicity pattern: acute headache Intractability: not intractable Qualified Code(s): R51.9 - Headache, unspecified Fever Qualifiers: Fever type: unspecified Qualified Code(s): R50.9 - Fever, unspecified Disposition: DC-01 TO HOME OR SELFCARE Is pt being admited?: No Does the pt Need Aspirin: No Condition: Stable Instructions: Costochondritis, [id number], Shortness of Breath, Adult, [id number], Viral Respiratory Infection, [id number], COVID-19: How to Protect Yourself and Others - CDC, COVID-19, Chest Wall Pain, Prevent the Spread of COVID-19 if You Are Sick - CDC, Chest Pain (ED), Bacterial Pneumonia (ED) Additional Instructions: Patient to follow-up with primary care in 2 to 3 days. Patient to follow-up with health department outpatient Covid testing in 2 to 3 days. Patient to self quarantine for 10 to 14 days. Patient to follow CDC guidelines for COVID-19. Patient to take zinc, vitamin D and vitamin C supplements. Patient to rest. Patient to increase water. Patient to avoid strenuous exercise or heavy lifting until cleared by [employer]. Patient to take Tylenol or ibuprofen as needed for pain. Patient to take meds as directed. Patient to return to the ER if c ondition worsens, changes or new symptoms arise. Prescriptions: methylPREDNISolone [Medrol 4MG DOSEPAK (21 tabs)] 4 mg PO DAILY 6 Days #1 tab.ds.pk Azithromycin [Zithromax TAB] 500 mg PO QDAY 5 Days #5 tablet Referrals: PRIMARY CARE, [Primary Care Provider] - 2-3 Days Time of Disposition: 04:39
[2020-11-29 02:46] LABS: Basophils % (Auto) 0.2 % (0.0-1.8); Eosinophils # (Auto) 0.1 K/mm3 (0.0-0.4); Eosinophils % (Auto) 1.5 % (0.0-4.3); Hematocrit 44.9 % (35.5-45.6); Hemoglobin 15.6 gm/dl (11.8-15.2); Lymphocytes # (Auto) 0.4 K/mm3 (1.2-5.4); Mean Corpuscular HGB Conc 35 % (32-34); Mean Corpuscular Volume 86 fl (84-94); Monocytes # (Auto) 0.4 K/mm3 (0.0-0.8); Monocytes % (Auto) 8.6 % (0.0-7.3); Platelet Count 179 K/mm3 (140-440); Red Blood Count 5.25 M/mm3 (3.65-5.03); Red Cell Distribution Width 13.2 % (13.2-15.2)
[2020-11-29 03:05] LABS: BUN/Creatinine Ratio 11; Blood Urea Nitrogen 9 mg/dL (9-20); Calcium 8.9 mg/dL (8.4-10.2); Hemolysis Index 12
--- NOTE | 2020-11-29 03:15 | XRay Report ---
CHEST 1 VIEW 11/29/2020 2:07 AM INDICATION / CLINICAL INFORMATION: Chest Pain. COMPARISON: 10/25/19 FINDINGS: SUPPORT DEVICES: None. HEART / MEDIASTINUM: No significant abnormality. LUNGS / PLEURA: Suboptimal inspiration with low lung volumes and mild bibasilar atelectasis. No pneum othorax. ADDITIONAL FINDINGS: Incidental note of small bilateral cervical ribs. IMPRESSION: 1. Mild bibasilar atelectasis. Signer Name: Abigail Ba MD Signed: 11/29/2020 3:11 AM Workstation Name: [id number]
[2020-11-29 06:05] VITALS: BP 119/84
== END 2020-11-29 06:04 | disposition home or self-care (01) ==
LOC: ED 01:32
DX: M94.0 Chondrocostal junction syndrome [Tietze] (principal); J12.9 Viral pneumonia, unspecified; E86.0 Dehydration; R51.9 Headache, unspecified; Z20.822 Contact with and (suspected) exposure to COVID-19; F17.200 Nicotine dependence, unspecified, uncomplicated; Z79.899 Other long term (current) drug therapy
CPT/HCPCS: 36415; 71045; 80048; 84484; 85025; 93005; 96361; 96374; 99284; J1100; J7030

== ENCOUNTER 2020-12-05 20:20 | Inpatient (IN) | payer OTHER, SELFPAY ==
--- NOTE | 2020-12-05 21:50 | Event Note ---
ED Screening Note ED Screening Note: Patient states that he is being treated for likely COVID-19 He states that last night he began noticing a rash present to his lower extremities and it began spreading up his stomach He states that the rash has been worsening and darkening He states that he has leg swelling and hand swelling He states that his legs feel weak and numb and it feels like his legs have been injected with Novocain He states he continues to have some mild chest pain and shortness of breath He states he feels significantly weak Heart rate 125 in triage There is a purpura-like rash present to the bilateral lower extremities This initial assessment/diagnostic orders/clinical plan/treatment(s) is/are subject to change based on patients health status, clinical progression and re- assessment by fellow clinical providers in the ED. Further treatment and workup at subsequent clinical providers discretion. Patient/guardian urged not to elope from the ED as their condition may be serious if not clinically assessed and managed. Initial orders include: labs, EKG, CXR
--- NOTE | 2020-12-05 22:44 | Emergency Department Report ---
ED Shortness of Breath HPI - General Chief Complaint: Skin Rash Stated Complaint: RASH/SWELLING/COVID + Time Seen by Provider: 12/05/20 21:47 Source: patient, EMS, RN notes reviewed, old records reviewed Mode of arrival: Stretcher Limitations: No Limitations - History of Present Illness Initial Comments: Patient is a 40-year-old male who presents emergency room with complaints of shortness of breath and leg pain, body aches, rash, hand and leg swelling. Patient states he was diagnosed here with COVID-19 at his last visit here. Patient states he never picked up any of his medications as prescribed. Patient states that his cough is improved. Patient denies chest pain. Patient states his fever has resolved. Patient states his shortness of breath is worsening. Patient states that yesterday he developed leg swelling, hand swelling and a bright red rash to his legs. Patient states his legs are also hurting. Patient states that his generalized pain is a 10 out of 10. Patient dates his pain is better with rest and worse with movement and walking. Patient states he is also having generalized weakness. Patient also did not get formally tested for COVID-19. MD Complaint: shortness of breath -: Sudden Severity: severe Consistency: constant Improves With: rest Worsens With: movement Context: recent URI - Related Data Previous Rx's Medication Instructions Recorded Last Taken Type Folic Acid [Folvite] 1 mg PO QDAY #30 tablet 01/06/15 Unknown Rx Sucralfate [Carafate] 1 gm PO Q6HR #30 tablet 01/06/15 Unknown Rx Thiamine [Vitamin B-1] 100 mg PO QDAY #30 tablet 01/06/15 Unknown Rx Pantoprazole [Protonix TAB] 40 mg PO QDAY #30 tablet 12/30/15 Unknown Rx Albuterol Mdi (or & Nicu Only) 2 puff IH QID PRN #1 inhalation 11/25/16 Unknown Rx [ProAir HFA Inhaler] Dicyclomine [Bentyl] 20 mg PO QID PRN #20 tablet 07/27/18 Unknown Rx Famotidine [Pepcid] 40 mg PO QHS #10 tablet 11/28/18 Unknown Rx Fluticasone [Flonase] 1 spray NS QDAY #1 bottle 08/21/19 Unknown Rx Erythromycin [Erythromycin Ophth 1 applic OS Q6H #1 tube 02/13/20 Unknown Rx Oint] Bacitracin Zinc/Polymyxin B 15 gm TP BID #90 oint...g. 04/04/20 Unknown Rx [Bacitracin-Polymyxin Ointment] Tramadol HCl/Acetaminophen 1 each PO Q6HR PRN #12 tablet 04/04/20 Unknown Rx [Ultracet Tablet] cephALEXin [Keflex] 500 mg PO Q8HR #15 cap 04/04/20 Unknown Rx Azithromycin [Zithromax TAB] 500 mg PO QDAY 5 Days #5 tablet 11/29/20 Unknown Rx methylPREDNISolone [Medrol 4MG 4 mg PO DAILY 6 Days #1 tab.ds.pk 11/29/20 Unknown Rx DOSEPAK (21 tabs)] Allergies Allergy/AdvReac Type Severity Reaction Status Date / Time No Known Allergies Allergy Verified 02/23/20 09:42 ED Review of Systems ROS: Stated complaint: RASH/SWELLING/COVID + Other details as noted in HPI Constitutional: malaise, weakness. denies: chills, fever Eyes: denies: eye pain, eye discharge, vision change ENT: denies: ear pain, throat pain Respiratory: shortness of breath, SOB with exertion, SOB at rest. denies: cough, wheezing Cardiovascular: dyspnea on exertion. denies: chest pain, palpitations Endocrine: no symptoms reported Gastrointestinal: denies: abdominal pain, nausea, diarrhea Genitourinary: denies: urgency, dysuria Musculoskeletal: arthralgia, myalgia. denies: back pain, joint swelling Skin: as per HPI, rash. denies: lesions Neurological: weakness. denies: headache, paresthesias Psychiatric: denies: anxiety, depression Hematological/Lymphatic: denies: easy bleeding, easy bruising ED Past Medical Hx - Past Medical History Previous Medical History?: Yes Hx Hypertension: No Hx Congestive Heart Failure: No Hx Diabetes: No Hx Liver Disease: Yes (elevated LFTs, possible acute alcholic hepatitis) Hx Seizures: No Hx Asthma: No Hx COPD: No Additional medical history: cirrhosis - Surgical History Past Surgical History?: No - Family History Family history: no significant - Social History Smoking Status: Current Every Day Smoker Substance Use Type: None - Medications Home Medications: Home Medications Medication Instructions Recorded Confirmed Last Taken Type Folic Acid [Folvite] 1 mg PO QDAY #30 tablet 01/06/15 Unknown Rx Sucralfate [Carafate] 1 gm PO Q6HR #30 tablet 01/06/15 Unknown Rx Thiamine [Vitamin B-1] 100 mg PO QDAY #30 tablet 01/06/15 Unknown Rx Pantoprazole [Protonix TAB] 40 mg PO QDAY #30 tablet 12/30/15 Unknown Rx Albuterol Mdi (or & Nicu Only) 2 puff IH QID PRN #1 inhalation 11/25/16 Unknown Rx [ProAir HFA Inhaler] Dicyclomine [Bentyl] 20 mg PO QID PRN #20 tablet 07/27/18 Unknown Rx Famotidine [Pepcid] 40 mg PO QHS #10 tablet 11/28/18 Unknown Rx Fluticasone [Flonase] 1 spray NS QDAY #1 bottle 08/21/19 Unknown Rx Erythromycin [Erythromycin Ophth 1 applic OS Q6H #1 tube 02/13/20 Unknown Rx Oint] Bacitracin Zinc/Polymyxin B 15 gm TP BID #90 oint...g. 04/04/20 Unknown Rx [Bacitracin-Polymyxin Ointment] Tramadol HCl/Acetaminophen 1 each PO Q6HR PRN #12 tablet 04/04/20 Unknown Rx [Ultracet Tablet] cephALEXin [Keflex] 500 mg PO Q8HR #15 cap 04/04/20 Unknown Rx Azithromycin [Zithromax TAB] 500 mg PO QDAY 5 Days #5 tablet 11/29/20 Unknown Rx methylPREDNISolone [Medrol 4MG 4 mg PO DAILY 6 Days #1 tab.ds.pk 11/29/20 Unknown Rx DOSEPAK (21 tabs)] ED Physical Exam - General Limitations: No Limitations General appearance: alert, in no apparent distress - Head Head exam: Present: atraumatic, normocephalic - Eye Eye exam: Present: normal appearance - ENT ENT exam: Present: mucous membranes moist - Neck Neck exam: Present: normal inspection - Respiratory Respiratory exam: Present: normal lung sounds bilaterally. Absent: respiratory distress, wheezes, rales - Cardiovascular Cardiovascular Exam: Present: regular rate, normal rhythm. Absent: systolic murmur, diastolic murmur, rubs, gallop - GI/Abdominal GI/Abdominal exam: Present: soft, normal bowel sounds. Absent: distended, tenderness, guarding - Rectal Rectal exam: Present: deferred - Extremities Exam Extremities exam: Present: full ROM, normal capillary refill, pedal edema. Absent: joint swelling, calf tenderness - Back Exam Back exam: Present: normal inspection - Neurological Exam Neurological exam: Present: alert, oriented X3 - Psychiatric Psychiatric exam: Present: normal affect, normal mood - Skin Skin exam: Present: warm, dry, intact, rash, other (Petechial and purpuric rash noted to the bilateral lower extremities.) ED Course Vital Signs 12/05/20 12/05/20 12/06/20 21:45 23:48 01:52 Temperature 98.7 F Pulse Rate 127 H 101 H Respiratory 18 20 20 Rate Blood Pressure 130/84 Blood Pressure 120/65 [Left] O2 Sat by Pulse 96 90 Oximetry 12/06/20 01:53 Temperature Pulse Rate Respiratory Rate Blood Pressure Blood Pressure [Left] O2 Sat by Pulse 98 Oximetry - Reevaluation(s) Reevaluation #1: After initial evaluation, I ambulated the patient and just getting out of bed the patient desatted. Patient dropped to 89%. Resting the patient's O2 sat is 95 to 96%. Patient will placed on oxygen. 12/05/20 21:53 Reevaluation #2: I discussed all results with patient. I discussed plan of care with patient. Patient agrees with plan of care and admission. Patient to be admitted to the hospitalist service. 12/06/20 03:36 - Consultations Consultation #1: Hospitalist consulted for admission. Hospitalist to admit patient. 12/06/20 03:36 - EJ/Peripheral Line Neck R Time Out Performed: Yes Indications: nurses unable to establis Skin Cleansed in Sterile Fashion: Yes Size: 20 Dressing Placed: Tegaderm, tape Patient Tolerated Procedure: well, no complications ED Medical Decision Making - Lab Data Result diagrams: 12/05/20 22:25 12/05/20 23:34 - EKG Data -: EKG Interpreted by Me EKG shows normal: sinus rhythm, axis, intervals, QRS complexes, ST-T waves Rate: tachycardia - Radiology Data Radiology results: report reviewed, image reviewed interpreted by me: Chest x-ray: No pneumonia, no pneumothorax, no foreign body, no osseous findings, no acute findings CTA CHEST WITH IV CONTRAST INDICATION: P.E. PROTOCOL!!! S.O.B., Hypoxia, Positive for Covid-19. TECHNIQUE: Axial CT images were obtained through the chest after injection of 100 cc IV contrast. 3 plane MIP reconstructions were produced. All CT scans at this location are performed u sing CT dose reduction for MAYCOL by means of automated exposure control. COMPARISON: None available. FINDINGS: PULMONARY ARTERIES: No pulmonary emboli. THORACIC AORTA: No acute abnormality. HEART: Normal. CORONARY ARTERIES: No significant calcification. PLEURA: No pleural effusion. No pneumothorax. LYMPH NODES: No significant adenopathy. LUNGS: No acute air space or interstitial disease. ADDITIONAL FINDINGS: None. UPPER ABDOMEN: No acute findings. SKELETAL STRUCTURES: No significant osseous abnormality. IMPRESSION: 1. No CT evidence for pulmonary embolism. 2. No acute findings. - Medical Decision Making Patient is a 40-year-old male that presents emergency room with complaints of shortness of breath, purpura and petechial rash to the legs. Patient also complains of generalized weakness and swelling to his legs and hands. Patient on initial exam found to be hypoxic with ambulation, a large purpuric rash to his bilateral lower extremities. Patient was seen here 1 week ago for COVID-19 and the patient never picked up his medications or took any of the [id number] medications that he was advised to take. Patient return to the ER because his condition worsen. During initial evaluation, the patient ambulatory and the patient's saturation dropped. Patient placed on oxygen. Roel ses had difficulty starting a peripheral IV so a right EJ was placed. Patient had an EKG done and it showed sinus tachycardia and no other acute findings. No ST changes. EKG was reviewed by me. Patient had a chest x-ray which was negative for acute findings. Patient had labs done which shows multiple abnormalities. All labs were reviewed from this visit and his previous visit patient's platelet count dropped from 179-81. Patient had a CT scan of the chest due to hypoxia, shortness of breath and tachycardia. CTA of the chest was negative for PE and acute findings. Patient given fluids, antibiotics and steroids. Clinical findings consistent with ITP, purpuric rash and petechial rash, weakness, respiratory failure. Patient admitted to the hospital service for further evaluation and treatment. - Differential Diagnosis PUI, Covid, pneumonia, ITP, thrombocytopenia, purpura, petechial rash, weak Critical Care Time: Yes Critical care time in (mins) excluding proc time.: 35 Critical care attestation.: If time is entered above; I have spent that time in minutes in the direct care of this critically ill patient, excluding procedure time. Critical Care Time: 35 minutes ED Disposition Clinical Impression: SOB (shortness of breath), Person under investigation for COVID-19, Tachycardia, Acute ITP, Purpura, Petechial rash, Thrombocytopenia, Dehydration, Weakness, Elevated d-dimer Respiratory failure Qualifiers: Chronicity: acute Respiratory failure complication: hypoxia Qualified Code(s): J96.01 - Acute respiratory failure with hypoxia Disposition: DC-09 OP ADMIT IP TO THIS HOSP Is pt being admited?: Yes Does the pt Need Aspirin: No Condition: Critical Time of Disposition: 03:38
[2020-12-05 22:47] LABS: Basophils % (Auto) 0.6 % (0.0-1.8); Eosinophils # (Auto) 0.3 K/mm3 (0.0-0.4); Eosinophils % (Auto) 4.5 % (0.0-4.3); Hematocrit 43.3 % (35.5-45.6); Hemoglobin 14.7 gm/dl (11.8-15.2); Lymphocytes # (Auto) 0.9 K/mm3 (1.2-5.4); Lymphocytes % (Auto) 15.1 % (13.4-35.0); Mean Corpuscular HGB Conc 34 % (32-34); Mean Corpuscular Volume 84 fl (84-94); Monocytes # (Auto) 0.5 K/mm3 (0.0-0.8); Monocytes % (Auto) 7.8 % (0.0-7.3); Red Blood Count 5.12 M/mm3 (3.65-5.03); Red Cell Distribution Width 13.4 % (13.2-15.2)
[2020-12-05 22:48] LABS: Platelet Count 81 K/mm3 (140-440)
[2020-12-05] MEDS ORDERED: AZITHROMYCIN/NS 500 MG/250 ML 500 MG/250 ML BAG IV ONE (22:50)
[2020-12-05] MEDS ORDERED: SODIUM CHLORIDE 0.9% 1000 ML IV SOLN IV ONE (22:50)
[2020-12-05] MEDS ORDERED: cefTRIAXone/NS 2 GM/100 ML 2 GM/100 ML BAG IV ONE (22:51)
[2020-12-05] MEDS ORDERED: dexAMETHasone 4 MG/ML VIAL IV ONE (22:52)
[2020-12-05 22:55] LABS: INR 1.09 (0.87-1.13)
[2020-12-05 22:59] LABS: Partial Thromboplastin Time 23.6 Sec. (24.2-36.6)
[2020-12-05 23:11] LABS: Alanine Aminotransferase 28 units/L (7-56); Albumin 3.8 g/dL (3.9-5); Blood Urea Nitrogen 16 mg/dL (9-20); Calcium 9.1 mg/dL (8.4-10.2); Erythrocyte Sedimentation Rate 20 mm/Hr (0-20); Hemolysis Index 5
[2020-12-05 23:12] LABS: BUN/Creatinine Ratio 27
--- NOTE | 2020-12-05 23:49 | XRay Report ---
CHEST 1 VIEW 12/05/2020 10:40 PM INDICATION / CLINICAL INFORMATION: sob. COMPARISON: Chest x-ray 11/29/2020 FINDINGS: SUPPORT DEVICES: None. HEART / MEDIASTINUM: No significant abnormality. LUNGS / PLEURA: No significant pulmonary or pleural abnormality. No pneumothorax. ADDITIONAL FINDINGS: No significant additional findings. IMPRESSION: 1. No acute findings. Signer Name: Víctor Villalpando MD Signed: 12/05/2020 11:45 PM Workstation Name: [id number]
--- NOTE | 2020-12-06 03:29 | Cat Scan Report ---
CTA CHEST WITH IV CONTRAST INDICATION: P.E. PROTOCOL!!! S.O.B., Hypoxia, Positive for Covid-19. TECHNIQUE: Axial CT images were obtained through the chest after injection of 100 cc IV contrast. 3 plane MIP re constructions were produced. All CT scans at this location are performed using CT dose reduction for ALARA by means of automated exposure control. COMPARISON: None available. FINDINGS: PULMONARY ARTERIES: No pulmonary emboli. THORACIC AORTA: No acute abnormality. HEART: Normal. CORONARY ARTERIES: No significant calcification. PLEURA: No pleural effusion. No pneumothorax. LYMPH NODES: No significant adenopathy. LUNGS: No acute air space or interstitial disease. ADDITIONAL FINDINGS: None. UPPER ABDOMEN: No acute findings. SKELETAL STRUCTURES: No significant osseous abnormality. IMPRESSION: 1. No CT evidence for pulmonary embolism. 2. No acute findings. Signer Name: Víctor Villalpando MD Signed: 12/06/2020 3:25 AM Workstation Name: [id number]
[2020-12-06] MEDS ORDERED: LORazepam 2 MG/ML VIAL IV PRN ×3 (03:36)
[2020-12-06] MEDS ORDERED: ONDANSETRON 4 MG/2 ML INJ IV PRN (03:55)
[2020-12-06] MEDS ORDERED: ACETAMINOPHEN 325 MG TAB PO PRN (03:55)
[2020-12-06] MEDS ORDERED: MAGNESIUM HYDROXIDE (MOM) ORAL LIQD UDC PO PRN (03:55)
[2020-12-06] MEDS ORDERED: SODIUM CHLORIDE 0.9% 1000 ML 1,000 ML IV SCH ×2 (04:00)
[2020-12-06 04:12] LABS: C-Reactive Protein 8.3 mg/dL (0.00-1.30)
--- NOTE | 2020-12-06 04:26 | History and Physical Report ---
History of Present Illness Date of examination: 12/06/20 Date of admission: 12/06/20 03:37 Chief complaint: Shortness of Breath History of present illness: 40-year-old male presenting to the emergency room today complaining of shortness of breath, bilateral lower extremity swelling and rash. Patient also indicates that he has been having some generalized body aches and pain. He had some fever which has since resolved. Patient was seen here recently seen in this facility and was sent home on some prescriptions for possible Covid but indicates that he has not been able to fill any of the medications. He has had some cough which has gotten worse since his last visit. Patient denies any chest pain, no nausea vomiting, no abdominal pain, no headache or dizziness. Upon arrival in the emergency room patient was slightly hypoxic. CT angiogram and chest x-ray did not show any acute findings. Work-up reveals a platelet count of 81. Patient is being admitted for possible COVID-19, idiopathic thrombocytopenia. Past History Past Medical History: hepatitis, other (Cirrhosis) Past Surgical History: No surgical history Social history: smoking (Current daily smoker) Family history: no significant family history Medications and Allergies Allergies Allergy/AdvReac Type Severity Reaction Status Date / Time No Known Allergies Allergy Verified 02/23/20 09:42 Home Medications Medication Instructions Recorded Confirmed Last Taken Type Folic Acid [Folvite] 1 mg PO QDAY #30 tablet 01/06/15 Unknown Rx Sucralfate [Carafate] 1 gm PO Q6HR #30 tablet 01/06/15 Unknown Rx Thiamine [Vitamin B-1] 100 mg PO QDAY #30 tablet 01/06/15 Unknown Rx Pantoprazole [Protonix TAB] 40 mg PO QDAY #30 tablet 12/30/15 Unknown Rx Albuterol Mdi (or & Nicu Only) 2 puff IH QID PRN #1 inhalation 11/25/16 Unknown Rx [ProAir HFA Inhaler] Dicyclomine [Bentyl] 20 mg PO QID PRN #20 tablet 07/27/18 Unknown Rx Famotidine [Pepcid] 40 mg PO QHS #10 tablet 11/28/18 Unknown Rx Fluticasone [Flonase] 1 spray NS QDAY #1 bottle 08/21/19 Unknown Rx Erythromycin [Erythromycin Ophth 1 applic OS Q6H #1 tube 02/13/20 Unknown Rx Oint] Bacitracin Zinc/Polymyxin B 15 gm TP BID #90 oint...g. 04/04/20 Unknown Rx [Bacitracin-Polymyxin Ointment] Tramadol HCl/Acetaminophen 1 each PO Q6HR PRN #12 tablet 04/04/20 Unknown Rx [Ultracet Tablet] cephALEXin [Keflex] 500 mg PO Q8HR #15 cap 04/04/20 Unknown Rx Azithromycin [Zithromax TAB] 500 mg PO QDAY 5 Days #5 tablet 11/29/20 Unknown Rx methylPREDNISolone [Medrol 4MG 4 mg PO DAILY 6 Days #1 tab.ds.pk 11/29/20 Unknown Rx DOSEPAK (21 tabs)] Active Meds: Active Medications Acetaminophen (Acetaminophen 325 Mg Tab) 650 mg PO Q4H PRN PRN Reason: Pain MILD(1-3)/Fever >100.5/ROMAN Dexamethasone (Dexamethasone 4 Mg/Ml Vial) 6 mg IV Q24HR TIFFANY Sodium Chloride (Nacl 0.9% 1000 Ml) 1,000 mls @ 75 mls/hr IV DIRECT TIFFANY Ceftriaxone Sodium (Rocephin/Ns 2 Gm/100 Ml) 2 gm in 100 mls @ 200 mls/hr IV Q24HR TIFFANY; Protocol Azithromycin (Zithromax/Ns) 500 mg in 250 mls @ 250 mls/hr IV Q24HR TIFFANY; Protocol Sodium Chloride (Nacl 0.9% 1000 Ml) 1,000 mls @ 75 mls/hr IV DIRECT TIFFANY Lorazepam (Lorazepam 2 Mg/Ml Vial) 2 mg IV Q1HR PRN PRN Reason: CIWA-Ar 8-15 Lorazepam (Lorazepam 2 Mg/Ml Vial) 4 mg IV Q1HR PRN PRN Reason: CIWA-Ar 16-25 Lorazepam (Lorazepam 2 Mg/Ml Vial) 4 mg IV Q15MIN PRN PRN Reason: CIWA-Ar >25 Magnesium Hydroxide (Magnesium Hydroxide (Mom) Oral Liqd Udc) 30 ml PO Q4H PRN PRN Reason: Constipation Ondansetron HCl (Ondansetron 4 Mg/2 Ml Inj) 4 mg IV Q8H PRN PRN Reason: Nausea And Vomiting Sodium Chloride (Sodium Chloride 0.9% 10 Ml Flush Syringe) 10 ml IV BID TIFFAYN Sodium Chloride (Sodium Chloride 0.9% 10 Ml Flush Syringe) 10 ml IV PRN PRN PRN Reason: LINE FLUSH Review of Systems Constitutional: no fever, no chills Ears, nose, mouth and throat: no nasal congestion, no sore throat Cardiovascular: no chest pain, no palpitations Respiratory: shortness of breath, no cough Gastrointestinal: no abdominal pain, no nausea, no vomiting, no diarrhea Genitourinary Male: no dysuria, no hematuria, no flank pain, no nocturia Musculoskeletal: no neck pain, no low back pain Exam - Constitutional Vitals: Temp Pulse Resp BP Pulse Ox 98.7 F 101 H 20 120/65 98 12/05/20 21:45 12/06/20 01:52 12/06/20 01:52 12/06/20 01:52 12/06/20 01:53 General appearance: Present: no acute distress, well-nourished - EENT Eyes: Present: PERRL, EOM intact. Absent: scleral icterus ENT: hearing intact, clear oral mucosa, dentition normal - Neck Neck: Present: supple, normal ROM - Respiratory Respiratory effort: normal Respiratory: bilateral: CTA - Cardiovascular Rhythm: regular Heart Sounds: Present: S1 & S2. Absent: gallop, systolic murmur, diastolic murmur, rub, click - Extremities Extremities: no ischemia, pulses intact, pulses symmetrical, No edema, normal temperature, normal color, Full ROM Peripheral Pulses: within normal limits - Abdominal General gastrointestinal: Present: soft, non-tender, non-distended, normal bowel sounds. Absent: mass - Integumentary Integumentary: Present: clear, warm, dry, erythema, rash (Petechiae/purpuric rash on both lower extremities.) - Musculoskeletal Musculoskeletal: strength equal bilaterally - Psychiatric Psychiatric: appropriate mood/affect, intact judgment & insight, memory intact, cooperative - Neurologic Neurologic: CNII-XII intact, no focal deficits, moves all extremities HEART Score - HEART Score Troponin: Troponin T < 0.010 ng/mL (0.00-0.029) 12/05/20 22:25 Results - Labs CBC & Chem 7: 12/05/20 22:25 12/05/20 23:34 Labs: Abnormal lab results 12/05/20 12/05/20 12/05/20 Range/Units 22:25 22:25 22:25 RBC 5.12 H (3.65-5.03) M/mm3 Plt Count 81 L (140-440) K/mm3 [place] % (Auto) 7.8 H (0.0-7.3) % Eos % (Auto) 4.5 H (0.0-4.3) % Lymph # (Auto) 0.9 L (1.2-5.4) K/mm3 Seg Neutrophils % 72.0 H (40.0-70.0) % APTT 23.6 L (24.2-36.6) Sec. D-Dimer (0-234) ng/mlDDU Sodium 131 L (137-145) mmol/L Chloride 96.0 L (98-107) mmol/L Creatinine 0.6 L (0.8-1.3) mg/dL Glucose 128 H (75-100) mg/dL Total Creatine Kinase 39 L (55-170) units/L Albumin 3.8 L (3.9-5) g/dL 12/05/20 12/05/20 Range/Units 23:34 23:34 RBC (3.65-5.03) M/mm3 Plt Count (140-440) K/mm3 [place] % (Auto) (0.0-7.3) % Eos % (Auto) (0.0-4.3) % Lymph # (Auto) (1.2-5.4) K/mm3 Seg Neutrophils % (40.0-70.0) % APTT (24.2-36.6) Sec. D-Dimer 1482.03 H (0-234) ng/mlDDU Sodium (137-145) mmol/L Chloride (98-107) mmol/L Creatinine (0.8-1.3) mg/dL Glucose 125 H (75-100) mg/dL Total Creatine Kinase (55-170) units/L Albumin (3.9-5) g/dL Assessment and Plan - Patient Problems (1) Respiratory failure Current Visit: Yes Status: Acute Qualifiers: Chronicity: acute Respiratory failure complication: hypoxia Qualified Code(s): J96.01 - Acute respiratory failure with hypoxia Plan to address problem: Etiology unclear. Patient being admitted for possible pneumonia. He has been commenced on empiric IV antibiotics. (2) Person under investigation for COVID-19 Current Visit: Yes Status: Acute Plan to address problem: Patient placed on isolation precautions. Will await COVID-19 testing. Will await evaluation by infectious disease. (3) Acute ITP Current Visit: Yes Status: Acute Plan to address problem: We will monitor CBC including platelet counts. Patient may need evaluation by hematology/oncology. (4) Dehydration Current Visit: Yes Status: Acute Plan to address problem: Patient continued on IV fluid normal saline. Will monitor BUN and creatinine. (5) DVT prophylaxis Current Visit: No Status: Acute Plan to address problem: Patient placed on sequential compression device. (6) Full code status Current Visit: Yes Status: Acute Plan to address problem: Patient is a full code.
[2020-12-06 05:29] LABS: Bilirubin,Urine NEG (Negative); Blood,Urine NEG (Negative); Color,Urine Yellow (Yellow); Mucus,Urine FEW /HPF; Protein,Urine <15 mg/dL mg/dL (Negative); Urobilinogen,Urine < 2.0 mg/dL (<2.0)
--- NOTE | 2020-12-06 09:04 | Event Note ---
Date: 12/06/20 Patient seen and examined. This is a follow-up from an admission earlier this morning. We will continue to plan as outlined in H&P. Total visit time equals 35 minutes with greater than 50% spent on coordination of care and counseling.
[2020-12-06] MEDS ORDERED: dexAMETHasone 4 MG/ML VIAL IV SCH (10:00)
[2020-12-06] MEDS ORDERED: AZITHROMYCIN/NS 500 MG/250 ML 500 MG/250 ML BAG IV SCH (10:00)
[2020-12-06] MEDS ORDERED: cefTRIAXone/NS 2 GM/100 ML 2 GM/100 ML BAG IV SCH (10:00)
--- NOTE | 2020-12-06 14:34 | Consultation ---
History of Present Illness - Reason for Consult Consult date: 12/06/20 - History of Present Illness 40-year-old man no past medical history presented to the hospital complaining of shortness of breath. This is associated with myalgias, rash, extremity swelling. He recently presented to the emergency room on 11/29/2020 and was given steroids for presumed COVID-19 infection. 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 He was not tested for Covid either. Afebrile with a normal white count. Normal GFR. Procalcitonin 0.21. Blood cultures currently pending. Currently receiving ceftriaxone azithromycin. He is currently on room air. Imaging personally reviewed: Chest CTA: No evidence of pulmonary embolism. No acute findings in the lungs. Review of systems: Deferred to PPE conservation strategy. Past History Past Medical History: hepatitis, other (Cirrhosis) Past Surgical History: No surgical history Social history: smoking (Current daily smoker) Family history: no significant family history Medications and Allergies Allergies Allergy/AdvReac Type Severity Reaction Status Date / Time No Known Allergies Allergy Verified 02/23/20 09:42 Home Medications Medication Instructions Recorded Confirmed Last Taken Type Folic Acid [Folvite] 1 mg PO QDAY #30 tablet 01/06/15 Unknown Rx Sucralfate [Carafate] 1 gm PO Q6HR #30 tablet 01/06/15 Unknown Rx Thiamine [Vitamin B-1] 100 mg PO QDAY #30 tablet 01/06/15 Unknown Rx Pantoprazole [Protonix TAB] 40 mg PO QDAY #30 tablet 12/30/15 Unknown Rx Albuterol Mdi (or & Nicu Only) 2 puff IH QID PRN #1 inhalation 11/25/16 Unknown Rx [ProAir HFA Inhaler] Dicyclomine [Bentyl] 20 mg PO QID PRN #20 tablet 07/27/18 Unknown Rx Famotidine [Pepcid] 40 mg PO QHS #10 tablet 11/28/18 Unknown Rx Fluticasone [Flonase] 1 spray NS QDAY #1 bottle 08/21/19 Unknown Rx Erythromycin [Erythromycin Ophth 1 applic OS Q6H #1 tube 02/13/20 Unknown Rx Oint] Bacitracin Zinc/Polymyxin B 15 gm TP BID #90 oint...g. 04/04/20 Unknown Rx [Bacitracin-Polymyxin Ointment] Tramadol HCl/Acetaminophen 1 each PO Q6HR PRN #12 tablet 04/04/20 Unknown Rx [Ultracet Tablet] cephALEXin [Keflex] 500 mg PO Q8HR #15 cap 04/04/20 Unknown Rx Azithromycin [Zithromax TAB] 500 mg PO QDAY 5 Days #5 tablet 11/29/20 Unknown Rx methylPREDNISolone [Medrol 4MG 4 mg PO DAILY 6 Days #1 tab.ds.pk 11/29/20 Unknown Rx DOSEPAK (21 tabs)] Active Meds: Active Medications Acetaminophen (Acetaminophen 325 Mg Tab) 650 mg PO Q4H PRN PRN Reason: Pain MILD(1-3)/Fever >100.5/ROMAN Dexamethasone (Dexamethasone 4 Mg/Ml Vial) 6 mg IV Q24HR TIFFANY Stop: 12/14/20 10:01 Last Admin: 12/06/20 11:03 Dose: 6 mg Documented by: Sodium Chloride (Nacl 0.9% 1000 Ml) 1,000 mls @ 75 mls/hr IV DIRECT TIFFANY Ceftriaxone Sodium (Rocephin/Ns 2 Gm/100 Ml) 2 gm in 100 mls @ 200 mls/hr IV Q24HR TIFFANY; Protocol Last Admin: 12/06/20 11:03 Dose: 200 mls/hr Documented by: Azithromycin (Zithromax/Ns) 500 mg in 250 mls @ 250 mls/hr IV Q24HR TIFFANY; Protocol Stop: 12/09/20 10:59 Last Admin: 12/06/20 11:03 Dose: 250 mls/hr Documented by: Sodium Chloride (Nacl 0.9% 1000 Ml) 1,000 mls @ 75 mls/hr IV DIRECT TIFFANY Lorazepam (Lorazepam 2 Mg/Ml Vial) 2 mg IV Q1HR PRN PRN Reason: CIWA-Ar 8-15 Lorazepam (Lorazepam 2 Mg/Ml Vial) 4 mg IV Q1HR PRN PRN Reason: CIWA-Ar 16-25 Lorazepam (Lorazepam 2 Mg/Ml Vial) 4 mg IV Q15MIN PRN PRN Reason: CIWA-Ar >25 Magnesium Hydroxide (Magnesium Hydroxide (Mom) Oral Liqd Udc) 30 ml PO Q4H PRN PRN Reason: Constipation Ondansetron HCl (Ondansetron 4 Mg/2 Ml Inj) 4 mg IV Q8H PRN PRN Reason: Nausea And Vomiting Sodium Chloride (Sodium Chloride 0.9% 10 Ml Flush Syringe) 10 ml IV BID TIFFANY Last Admin: 12/06/20 11:04 Dose: 10 ml Documented by: Sodium Chloride (Sodium Chloride 0.9% 10 Ml Flush Syringe) 10 ml IV PRN PRN PRN Reason: LINE FLUSH Physical Examination - Physical Exam Narrative exam: Physical exam deferred due to PPE conservation strategy. Please refer to primary team's note. - Constitutional Vitals: Vital Signs Temp Pulse Resp BP Pulse Ox 98.7 F 86 18 98/57 98 12/05/20 21:45 12/06/20 07:19 12/06/20 07:19 12/06/20 07:19 12/06/20 10:41 Temperature -Last 24 Hours Temperature 98.7 F Results - Labs CBC & Chem 7: 12/05/20 22:25 12/05/20 23:34 Labs: Abnormal lab results 12/05/20 12/05/20 12/05/20 Range/Units 22:25 22:25 22:25 RBC 5.12 H (3.65-5.03) M/mm3 Plt Count 81 L (140-440) K/mm3 [place] % (Auto) 7.8 H (0.0-7.3) % Eos % (Auto) 4.5 H (0.0-4.3) % Lymph # (Auto) 0.9 L (1.2-5.4) K/mm3 Seg Neutrophils % 72.0 H (40.0-70.0) % APTT 23.6 L (24.2-36.6) Sec. D-Dimer (0-234) ng/mlDDU Sodium 131 L (137-145) mmol/L Chloride 96.0 L (98-107) mmol/L Creatinine 0.6 L (0.8-1.3) mg/dL Glucose 128 H (75-100) mg/dL Ferritin (30.0-300.0) ng/mL Lactate Dehydrogenase (91-180) units/L Total Creatine Kinase 39 L (55-170) units/L C-Reactive Protein 8.30 H (0.00-1.30) mg/dL Albumin 3.8 L (3.9-5) g/dL Ur Specific [place] (1.003-1.030) 12/05/20 12/05/20 12/05/20 Range/Units 23:34 23:34 23:34 RBC (3.65-5.03) M/mm3 Plt Count (140-440) K/mm3 [place] % (Auto) (0.0-7.3) % Eos % (Auto) (0.0-4.3) % Lymph # (Auto) (1.2-5.4) K/mm3 Seg Neutrophils % (40.0-70.0) % APTT (24.2-36.6) Sec. D-Dimer 1482.03 H (0-234) ng/mlDDU Sodium (137-145) mmol/L Chloride (98-107) mmol/L Creatinine (0.8-1.3) mg/dL Glucose 125 H (75-100) mg/dL Ferritin 1093.0 H (30.0-300.0) ng/mL Lactate Dehydrogenase 247 H (91-180) units/L Total Creatine Kinase (55-170) units/L C-Reactive Protein 8.30 H (0.00-1.30) mg/dL Albumin (3.9-5) g/dL Ur Specific [place] (1.003-1.030) 12/06/20 Range/Units 04:41 RBC (3.65-5.03) M/mm3 Plt Count (140-440) K/mm3 [place] % (Auto) (0.0-7.3) % Eos % (Auto) (0.0-4.3) % Lymph # (Auto) (1.2-5.4) K/mm3 Seg Neutrophils % (40.0-70.0) % APTT (24.2-36.6) Sec. D-Dimer (0-234) ng/mlDDU Sodium (137-145) mmol/L Chloride (98-107) mmol/L Creatinine (0.8-1.3) mg/dL Glucose (75-100) mg/dL Ferritin (30.0-300.0) ng/mL Lactate Dehydrogenase (91-180) units/L Total Creatine Kinase (55-170) units/L C-Reactive Protein (0.00-1.30) mg/dL Albumin (3.9-5) g/dL Ur Specific [place] 1.032 H (1.003-1.030) Assessment and Plan Cultures: Blood culture pending A/P: 40-year-old man no past medical history admitted as Covid PUI #COVID-19 PUI: awaiting testing. Currently on room air. #Thrombocytopenia: potentially due to COVID, his platelets were normal during presentation to the ER last week. Recs: -Follow up COVID testing -May need heme consult if no improvement in platelets, or if not explainable by COVID -Stopped ceftriaxone and azithromycin given no abnormality in lungs on CT and procalcitonin fairly low. Thank you for the consult, we will continue to follow. Rosie Terry MD [facility] ([facility] O: [phone] F: [phone]
--- NOTE | 2020-12-06 14:50 | Consultation ---
History of Present Illness Consult date: 12/06/20 Requesting physician: KENYETTA SERRA Reason for consult: other ([facility]I COVID-19) History of present illness: PCCM CONSULT NOTE (Full dictation # [id number]) Please see dictated notes for full details Past History Past Medical History: hepatitis, other (Cirrhosis) Past Surgical History: No surgical history Social history: smoking (Current daily smoker) Family history: no significant family history Medications and Allergies Allergies Allergy/AdvReac Type Severity Reaction Status Date / Time No Known Allergies Allergy Verified 02/23/20 09:42 Home Medications Medication Instructions Recorded Confirmed Last Taken Type Folic Acid [Folvite] 1 mg PO QDAY #30 tablet 01/06/15 Unknown Rx Sucralfate [Carafate] 1 gm PO Q6HR #30 tablet 01/06/15 Unknown Rx Thiamine [Vitamin B-1] 100 mg PO QDAY #30 tablet 01/06/15 Unknown Rx Pantoprazole [Protonix TAB] 40 mg PO QDAY #30 tablet 12/30/15 Unknown Rx Albuterol Mdi (or & Nicu Only) 2 puff IH QID PRN #1 inhalation 11/25/16 Unknown Rx [ProAir HFA Inhaler] Dicyclomine [Bentyl] 20 mg PO QID PRN #20 tablet 07/27/18 Unknown Rx Famotidine [Pepcid] 40 mg PO QHS #10 tablet 11/28/18 Unknown Rx Fluticasone [Flonase] 1 spray NS QDAY #1 bottle 08/21/19 Unknown Rx Erythromycin [Erythromycin Ophth 1 applic OS Q6H #1 tube 02/13/20 Unknown Rx Oint] Bacitracin Zinc/Polymyxin B 15 gm TP BID #90 oint...g. 04/04/20 Unknown Rx [Bacitracin-Polymyxin Ointment] Tramadol HCl/Acetaminophen 1 each PO Q6HR PRN #12 tablet 04/04/20 Unknown Rx [Ultracet Tablet] cephALEXin [Keflex] 500 mg PO Q8HR #15 cap 04/04/20 Unknown Rx Azithromycin [Zithromax TAB] 500 mg PO QDAY 5 Days #5 tablet 11/29/20 Unknown Rx methylPREDNISolone [Medrol 4MG 4 mg PO DAILY 6 Days #1 tab.ds.pk 11/29/20 Unknown Rx DOSEPAK (21 tabs)] Active Meds: Active Medications Acetaminophen (Acetaminophen 325 Mg Tab) 650 mg PO Q4H PRN PRN Reason: Pain MILD(1-3)/Fever >100.5/ROMAN Dexamethasone (Dexamethasone 4 Mg/Ml Vial) 6 mg IV Q24HR [facility] Stop: 12/14/20 10:01 Last Admin: 12/06/20 11:03 Dose: 6 mg Documented by: Sodium Chloride (Nacl 0.9% 1000 Ml) 1,000 mls @ 75 mls/hr IV DIRECT TIFFANY Sodium Chloride (Nacl 0.9% 1000 Ml) 1,000 mls @ 75 mls/hr IV DIRECT TIFFANY Lorazepam (Lorazepam 2 Mg/Ml Vial) 2 mg IV Q1HR PRN PRN Reason: CIWA-Ar 8-15 Lorazepam (Lorazepam 2 Mg/Ml Vial) 4 mg IV Q1HR PRN PRN Reason: CIWA-Ar 16-25 Lorazepam (Lorazepam 2 Mg/Ml Vial) 4 mg IV Q15MIN PRN PRN Reason: CIWA-Ar >25 Magnesium Hydroxide (Magnesium Hydroxide (Mom) Oral Liqd Udc) 30 ml PO Q4H PRN PRN Reason: Constipation Ondansetron HCl (Ondansetron 4 Mg/2 Ml Inj) 4 mg IV Q8H PRN PRN Reason: Nausea And Vomiting Sodium Chloride (Sodium Chloride 0.9% 10 Ml Flush Syringe) 10 ml IV BID [facility] Last Admin: 12/06/20 11:04 Dose: 10 ml Documented by: Sodium Chloride (Sodium Chloride 0.9% 10 Ml Flush Syringe) 10 ml IV PRN PRN PRN Reason: LINE FLUSH Physical Examination Vital signs: Vital Signs Temp Pulse Resp BP Pulse Ox 98.7 F 127 H 18 130/84 96 12/05/20 21:45 12/05/20 21:45 12/05/20 21:45 12/05/20 21:45 12/05/20 21:45 Results - Laboratory Findings CBC and BMP: 12/05/20 22:25 12/05/20 23:34 PT/INR, D-dimer PT 13.9 Sec. (12.2-14.9) 12/05/20 22:25 INR 1.09 (0.87-1.13) 12/05/20 22:25 D-Dimer 1482.03 ng/mlDDU (0-234) H 12/05/20 23:34 Abnormal lab findings: Abnormal Labs 12/05/20 12/05/20 12/05/20 22:25 22:25 22:25 RBC 5.12 H Plt Count 81 L [place] % (Auto) 7.8 H Eos % (Auto) 4.5 H Lymph # (Auto) 0.9 L Seg Neutrophils % 72.0 H APTT 23.6 L D-Dimer Sodium 131 L Chloride 96.0 L Creatinine 0.6 L Glucose 128 H Ferritin Lactate Dehydrogenase Total Creatine Kinase 39 L C-Reactive Protein 8.30 H Albumin 3.8 L Ur Specific [place] 12/05/20 12/05/20 12/05/20 23:34 23:34 23:34 RBC Plt Count [place] % (Auto) Eos % (Auto) Lymph # (Auto) Seg Neutrophils % APTT D-Dimer 1482.03 H Sodium Chloride Creatinine Glucose 125 H Ferritin 1093.0 H Lactate Dehydrogenase 247 H Total Creatine Kinase C-Reactive Protein 8.30 H Albumin Ur Specific [place] 12/06/20 04:41 RBC Plt Count [place] % (Auto) Eos % (Auto) Lymph # (Auto) Seg Neutrophils % APTT D-Dimer Sodium Chloride Creatinine Glucose Ferritin Lactate Dehydrogenase Total Creatine Kinase C-Reactive Protein Albumin Ur Specific [place] 1.032 H
--- NOTE | 2020-12-06 15:16 | Hem/Onc Consultation ---
History of Present Illness - Reason for Consult Consult date: 12/06/20 - History of Present Illness televisit by [facility] Unable to do live A/V visit because of suspected COVID 19 reason for consult: low plt count 40yo man with h/o impressive alcohol use who presented with SOB and rash on his legs. found to have low plt count 81 He was seen in ER 1 week ago, with nl plt count 179 Covid 19 testing negative 12/06 EXAM: red rash on both legs DATA REVIEWED BELOW Impression: Acute Low plt count looks like it's due to infection but so far not proven "acute ITP" is possible, maybe related to Covid19 infection leg rash could be allergic or due to infection Plan: steroid pulse for possible allergic dermatitis, may also help plt count No need for plt transfusion at this time If Plt count less than 20, transfuse 1 dose Laboratory evaluation to include fibrinogen Active Medications Acetaminophen (Acetaminophen 325 Mg Tab) 650 mg PO Q4H PRN PRN Reason: Pain MILD(1-3)/Fever >100.5/ROMAN Ascorbic Acid (Ascorbic Acid 500 Mg Tab) 500 mg PO BID [facility] Last Admin: 12/06/20 21:12 Dose: 500 mg Documented by: Dexamethasone (Dexamethasone 4 Mg/Ml Vial) 6 mg IV Q24HR [facility] Stop: 12/14/20 10:01 Last Admin: 12/06/20 11:03 Dose: 6 mg Documented by: Folic Acid (Folic Acid 1 Mg Tab) 1 mg PO QDAY [facility] Laboratory Last Values WBC 6.0 K/mm3 (4.5-11.0) 12/05/20 22:25 Hgb 14.7 gm/dl (11.8-15.2) 12/05/20 22:25 Hct 43.3 % (35.5-45.6) 12/05/20 22:25 Plt Count 81 K/mm3 (140-440) L 12/05/20 22:25 ESR 20 mm/Hr (0-20) 12/05/20 22:25 Coronavirus (PCR) Negative (Negative) 12/06/20 Unknown Past History Past Medical History: hepatitis, other (Cirrhosis) Past Surgical History: No surgical history Social history: smoking (Current daily smoker) Family history: no significant family history Medications and Allergies Allergies Allergy/AdvReac Type Severity Reaction Status Date / Time No Known Allergies Allergy Verified 02/23/20 09:42 Home Medications Medication Instructions Recorded Confirmed Last Taken Type Folic Acid [Folvite] 1 mg PO QDAY #30 tablet 01/06/15 Unknown Rx Sucralfate [Carafate] 1 gm PO Q6HR #30 tablet 01/06/15 Unknown Rx Thiamine [Vitamin B-1] 100 mg PO QDAY #30 tablet 01/06/15 Unknown Rx Pantoprazole [Protonix TAB] 40 mg PO QDAY #30 tablet 12/30/15 Unknown Rx Albuterol Mdi (or & Nicu Only) 2 puff IH QID PRN #1 inhalation 11/25/16 Unknown Rx [ProAir HFA Inhaler] Dicyclomine [Bentyl] 20 mg PO QID PRN #20 tablet 07/27/18 Unknown Rx Famotidine [Pepcid] 40 mg PO QHS #10 tablet 11/28/18 Unknown Rx Fluticasone [Flonase] 1 spray NS QDAY #1 bottle 08/21/19 Unknown Rx Erythromycin [Erythromycin Ophth 1 applic OS Q6H #1 tube 02/13/20 Unknown Rx Oint] Bacitracin Zinc/Polymyxin B 15 gm TP BID #90 oint...g. 04/04/20 Unknown Rx [Bacitracin-Polymyxin Ointment] Tramadol HCl/Acetaminophen 1 each PO Q6HR PRN #12 tablet 04/04/20 Unknown Rx [Ultracet Tablet] cephALEXin [Keflex] 500 mg PO Q8HR #15 cap 04/04/20 Unknown Rx Azithromycin [Zithromax TAB] 500 mg PO QDAY 5 Days #5 tablet 11/29/20 Unknown Rx methylPREDNISolone [Medrol 4MG 4 mg PO DAILY 6 Days #1 tab.ds.pk 11/29/20 Unknown Rx DOSEPAK (21 tabs)] Active Meds: Active Medications Acetaminophen (Acetaminophen 325 Mg Tab) 650 mg PO Q4H PRN PRN Reason: Pain MILD(1-3)/Fever >100.5/ROMAN Ascorbic Acid (Ascorbic Acid 500 Mg Tab) 500 mg PO BID TIFFANY Dexamethasone (Dexamethasone 4 Mg/Ml Vial) 6 mg IV Q24HR TIFFANY Stop: 12/14/20 10:01 Last Admin: 12/06/20 11:03 Dose: 6 mg Documented by: Folic Acid (Folic Acid 1 Mg Tab) 1 mg PO QDAY TIFFANY Sodium Chloride (Nacl 0.9% 1000 Ml) 1,000 mls @ 75 mls/hr IV DIRECT TIFFANY Sodium Chloride (Nacl 0.9% 1000 Ml) 1,000 mls @ 75 mls/hr IV DIRECT TIFFANY Lorazepam (Lorazepam 2 Mg/Ml Vial) 2 mg IV Q1HR PRN PRN Reason: CIWA-Ar 8-15 Lorazepam (Lorazepam 2 Mg/Ml Vial) 4 mg IV Q1HR PRN PRN Reason: CIWA-Ar 16-25 Lorazepam (Lorazepam 2 Mg/Ml Vial) 4 mg IV Q15MIN PRN PRN Reason: CIWA-Ar >25 Magnesium Hydroxide (Magnesium Hydroxide (Mom) Oral Liqd Udc) 30 ml PO Q4H PRN PRN Reason: Constipation Ondansetron HCl (Ondansetron 4 Mg/2 Ml Inj) 4 mg IV Q8H PRN PRN Reason: Nausea And Vomiting Sodium Chloride (Sodium Chloride 0.9% 10 Ml Flush Syringe) 10 ml IV BID [facility] Last Admin: 12/06/20 11:04 Dose: 10 ml Documented by: Sodium Chloride (Sodium Chloride 0.9% 10 Ml Flush Syringe) 10 ml IV PRN PRN PRN Reason: LINE FLUSH Thiamine HCl (Thiamine 100 Mg Tab) 100 mg PO QDAY [facility] Zinc Sulfate (Zinc Sulfate 220 Mg Cap) 220 mg PO BID [facility] Exam - Constitutional Vitals: Last Vital Signs Temp 98.7 F 12/05/20 21:45 Pulse 86 12/06/20 07:19 Resp 18 12/06/20 07:19 BP 98/57 12/06/20 07:19 Pulse Ox 98 12/06/20 10:41 Results - Labs lab Results: Laboratory Results - last 24 hr 12/05/20 12/05/20 12/05/20 22:25 22:25 22:25 WBC 6.0 RBC 5.12 H Hgb 14.7 Hct 43.3 MCV 84 MCH 29 MCHC 34 RDW 13.4 Plt Count 81 L Lymph % (Auto) 15.1 [place] % (Auto) 7.8 H Eos % (Auto) 4.5 H Baso % (Auto) 0.6 Lymph # (Auto) 0.9 L [place] # (Auto) 0.5 Eos # (Auto) 0.3 Baso # (Auto) 0.0 Seg Neutrophils % 72.0 H Seg Neutrophils # 4.3 ESR 20 PT INR APTT D-Dimer Sodium 131 L Potassium 4.1 Chloride 96.0 L Carbon Dioxide 24 Anion Gap 15 BUN 16 Creatinine 0.6 L Estimated GFR > 60 BUN/Creatinine Ratio 27 Glucose 128 H Lactic Acid Calcium 9.1 Magnesium 2.00 Ferritin Total Bilirubin 0.40 AST 30 ALT 28 Alkaline Phosphatase 71 Lactate Dehydrogenase Total Creatine Kinase 39 L Troponin T < 0.010 C-Reactive Protein 8.30 H NT-Pro-B Natriuret Pep 23.95 Total Protein 6.9 Albumin 3.8 L Albumin/Globulin Ratio 1.2 Procalcitonin Urine Color Urine Turbidity Urine pH Ur Specific [place] Urine Protein Urine Glucose (UA) Urine Ketones Urine Blood Urine Nitrite Urine Bilirubin Urine Urobilinogen Ur Leukocyte Esterase Urine WBC (Auto) Urine RBC (Auto) Urine Mucus Coronavirus (PCR) 12/05/20 12/05/20 12/05/20 22:25 23:03 23:34 WBC RBC Hgb Hct MCV MCH MCHC RDW Plt Count Lymph % (Auto) [place] % (Auto) Eos % (Auto) Baso % (Auto) Lymph # (Auto) [place] # (Auto) Eos # (Auto) Baso # (Auto) Seg Neutrophils % Seg Neutrophils # ESR PT 13.9 INR 1.09 APTT 23.6 L D-Dimer 1482.03 H Sodium Potassium Chloride Carbon Dioxide Anion Gap BUN Creatinine Estimated GFR BUN/Creatinine Ratio Glucose Lactic Acid 1.60 Calcium Magnesium Ferritin Total Bilirubin AST ALT Alkaline Phosphatase Lactate Dehydrogenase Total Creatine Kinase Troponin T C-Reactive Protein NT-Pro-B Natriuret Pep Total Protein Albumin Albumin/Globulin Ratio Procalcitonin Urine Color Urine Turbidity Urine pH Ur Specific [place] Urine Protein Urine Glucose (UA) Urine Ketones Urine Blood Urine Nitrite Urine Bilirubin Urine Urobilinogen Ur Leukocyte Esterase Urine WBC (Auto) Urine RBC (Auto) Urine Mucus Coronavirus (PCR) 12/05/20 12/05/20 12/05/20 23:34 23:34 23:34 WBC RBC Hgb Hct MCV MCH MCHC RDW Plt Count Lymph % (Auto) [place] % (Auto) Eos % (Auto) Baso % (Auto) Lymph # (Auto) [place] # (Auto) Eos # (Auto) Baso # (Auto) Seg Neutrophils % Seg Neutrophils # ESR PT INR APTT D-Dimer Sodium Potassium Chloride Carbon Dioxide Anion Gap BUN Creatinine Estimated GFR BUN/Creatinine Ratio Glucose 125 H Lactic Acid Calcium Magnesium Ferritin 1093.0 H Total Bilirubin AST ALT Alkaline Phosphatase Lactate Dehydrogenase 247 H Total Creatine Kinase Troponin T C-Reactive Protein 8.30 H NT-Pro-B Natriuret Pep Total Protein Albumin Albumin/Globulin Ratio Procalcitonin 0.21 Urine Color Urine Turbidity Urine pH Ur Specific [place] Urine Protein Urine Glucose (UA) Urine Ketones Urine Blood Urine Nitrite Urine Bilirubin Urine Urobilinogen Ur Leukocyte Esterase Urine WBC (Auto) Urine RBC (Auto) Urine Mucus Coronavirus (PCR) 12/06/20 12/06/20 12/06/20 01:59 04:41 Unknown WBC RBC Hgb Hct MCV MCH MCHC RDW Plt Count Lymph % (Auto) [place] % (Auto) Eos % (Auto) Baso % (Auto) Lymph # (Auto) [place] # (Auto) Eos # (Auto) Baso # (Auto) Seg Neutrophils % Seg Neutrophils # ESR PT INR APTT D-Dimer Sodium Potassium Chloride Carbon Dioxide Anion Gap BUN Creatinine Estimated GFR BUN/Creatinine Ratio Glucose Lactic Acid 1.80 Calcium Magnesium Ferritin Total Bilirubin AST ALT Alkaline Phosphatase Lactate Dehydrogenase Total Creatine Kinase Troponin T C-Reactive Protein NT-Pro-B Natriuret Pep Total Protein Albumin Albumin/Globulin Ratio Procalcitonin Urine Color Yellow Urine Turbidity Clear Urine pH 6.0 Ur Specific [place] 1.032 H Urine Protein <15 mg/dl Urine Glucose (UA) Neg Urine Ketones Neg Urine Blood Neg Urine Nitrite Neg Urine Bilirubin Neg Urine Urobilinogen < 2.0 Ur Leukocyte Esterase Neg Urine WBC (Auto) 1.0 Urine RBC (Auto) 2.0 Urine Mucus Few Coronavirus (PCR) Negative
--- NOTE | 2020-12-06 15:28 | Consultation ---
PULMONARY CRITICAL CARE CONSULT NOTE CONSULTING PHYSICIAN: Dr. Sami Rodriges. REASON FOR CONSULTATION: Acute respiratory failure, rule out COVID-19. CHIEF COMPLAINT AND HISTORY OF PRESENT ILLNESS: As follows: The patient is a 40-year-old male with past medical history significant mostly for what he describes as liver disease with elevated liver function tests, came into the Emergency Room complaining of shortness of breath, generalized body aches, rash, hand and leg swelling. He stated he was diagnosed with COVID-19 at his last visit here. He stated he never took any of his medications. He stated that his cough at that time has resolved. He denied chest pain. He denied expectoration. He denied gross or streaky hemoptysis. He states that his shortness of breath was worsening and that he had developed leg swelling and hand swelling and bright red rash to his legs at the time, also complained of pain. He was evaluated in the Emergency Room and ultimately admitted to the hospital for his shortness of breath as well as to evaluate his other symptoms and complications, evaluated to rule out COVID-19 and had been diagnosed with an acute thrombocytopenia that was believed to be ITP related. We are asked to assist with management. When I stopped by to see him, he was resting in bed. His history was sketchy. He might have received some analgesia, but in particular was complaining of nonrespiratory symptoms. He felt like he was doing perhaps a little bit better and he was a little bit confused. That really is as much of the history of presentation as I have. PAST MEDICAL HISTORY: History of hepatitis, questionable history of cirrhosis. PAST SURGICAL HISTORY: Unknown. MEDICATIONS: He was on at the time I stopped by to see him, according to the medication administration record included the following: Tylenol 650 mg p.o. q.4 hours p.r.n. mild pain or fevers, Decadron 6 mg IV daily, Ativan per CIWA protocol, the alcohol withdrawal protocol. Zofran 4 mg IV q.8 hours p.r.n. nausea and vomiting. He received azithromycin and Rocephin in the Emergency Room. ALLERGIES: No known drug allergies. DIET: Obese gentleman. Denies acute weight loss or gain in the preceding few weeks to months. FAMILY AND SOCIAL HISTORY: Lives in the community. He is described as a current daily smoker. He is unable to quantify it for me. Alcohol, illicit drug use or abuse history is unknown. FAMILY HISTORY: Otherwise, unknown. REVIEW OF SYSTEMS: Difficult to obtain secondary the patient's medical and mental condition. Since he has been here, no gross hematochezia or melena, no gross hematuria, no hematemesis. He denies hemoptysis. No witnessed seizures. Review of systems otherwise unobtainable or as in body of history above. PHYSICAL EXAMINATION: VITAL SIGNS: At presentation, he was afebrile, temperature 98.7 degrees Fahrenheit, pulse of 127, respiratory rate of 18, blood pressure 130/84, O2 sats were 96%, inspired oxygen concentration at that time was not recorded. When I stopped by to see him, O2 sats were 99% on 2 liters nasal cannula. GENERAL: He is a young obese male. Really with normal respiratory effort at rest. HEAD, EYES, EARS, NOSE AND THROAT: Normocephalic, atraumatic. Anicteric. No conjunctival erythema. NECK: No gross jugular venous distention. Grossly, there were no palpable lymph nodes in the supraclavicular or submandibular lymph node chains. He had normal range of motion of his neck. LUNGS: Auscultation of both lung hurd unremarkable. Lungs are clear bilaterally with good bilateral air movement. HEART: Heart sounds 1 and 2 are heard. They were regular in rate and rhythm at the time of my evaluation without overt rubs or murmurs. ABDOMEN: Soft, full, bowel sounds are positive, nontender, no palpable hepatosplenomegaly. EXTREMITIES: Without overt digital clubbing or cyanosis and actually no pedal edema. Pedal pulses are 2+ bilaterally. NEUROLOGIC: Pupils are equal, round, about 3 mm, reactive to light. Extraocular muscle movements are intact. EXTREMITIES: He had spontaneous movements to all 4 extremities. SKIN: His skin was of normal turgor in the areas examined without overt cellulitis or rash. He had some tattoos over his skin. Please see the wound care nurse's notes for full description of his skin. PSYCHIATRIC: He had a little bit of delirium going on. His mood and affect were flat and he had poor judgment and insight. LABORATORY DATA: From my review are as follows: White cell count 6000, hemoglobin 14.7, hematocrit 43.3, platelet count 81, D-dimer 1482. Serum sodium 131, potassium 4.1, chloride 96, bicarbonate 24, BUN 16, creatinine 0.6, glucose 125. Lactic acid level within normal limits. Ferritin 1093. Liver function test within normal limits. LDH up at 247. CRP up at 8.3. Procalcitonin really within normal limits. Urinalysis was unremarkable. Two sets of blood cultures are no growth to date. His chest x-ray really just shows hypoventilation. If you ask me, I do not see any focal infiltrate or acute process going on. He had a CT angiogram of his chest with IV contrast. Unfortunately, the contrast phase timing is really poor. At best, no large central pulmonary emboli that is obvious. I cannot comment on lower order filling defects. The official report does mention that there were no CT evidence for PE. ASSESSMENT: 1. Acute hypoxemic respiratory failure at presentation. 2. Possible COVID-19 infection. 3. Elevated serum D-dimers and history of leg swelling by the patient. 4. Thrombocytopenia. 5. History of alcohol abuse with possible alcohol withdrawals. 6. Elevated serum inflammatory markers including D-dimers, ferritin levels and LDH. PLAN: I do feel it is important to rule out the presence of pulmonary embolus. I will go ahead and order a V/Q scan just because in my opinion, the CT angiogram of the chest is only diagnostic for absence of large first order filling defects. Oxygen will be weaned to keep sats greater than or equal to about 90%. Aspiration precautions will be maintained. I have asked him to let his nurse know if he is in pain. PRN analgesia will be per his pain score. I will start zinc and vitamin C supplementation. I will also start folic acid and thiamine in this gentleman with a history of alcoholism. I do not see any acute indication to start anti-infective therapies. Follow him closely clinically. He will be placed on GI as well as DVT prophylaxis. We will continue dexamethasone for now. Follow the coronavirus test result. Flu and pneumonia vaccination will be addressed per protocol. Thank you very much for the consult. We will follow along and make further recommendations as picture progresses/becomes clearer. JOB# [id number] AJM/NTS
--- NOTE | 2020-12-06 15:57 | Nuclear Medicine Report ---
NUCLEAR MEDICINE PERFUSION SCAN INDICATION: Acute Hypoxemic Respiratory Failure CORRELATION: AP chest 12/05/2020 RADIOPHARMACEUTICAL: Perfusion: 4.5 mCi Tc-99m MAA given IV FINDINGS: Perfusion images show symmetric and uniform radiotracer distribution throughout bilateral lung zones with no evidence of segmental perfusion defects. Normal cardiac silhouette. IMPRESSION: Very low probability perfusion scan for pulmonary embolism. Signer Name: Sergio Lloyd Jr, MD Signed: 12/06/2020 3:53 PM Workstation Name: [id number]
[2020-12-06] MEDS ORDERED: ZINC SULFATE 220 MG CAP PO SCH (22:00)
[2020-12-06] MEDS ORDERED: ASCORBIC ACID 500 MG TAB PO SCH (22:00)
[2020-12-07 07:05] LABS: Basophils % (Auto) 0.1 % (0.0-1.8); Eosinophils % (Auto) 0.1 % (0.0-4.3); Hematocrit 35.6 % (35.5-45.6); Hemoglobin 12.3 gm/dl (11.8-15.2); Lymphocytes # (Auto) 0.8 K/mm3 (1.2-5.4); Lymphocytes % (Auto) 8.9 % (13.4-35.0); Mean Corpuscular HGB Conc 35 % (32-34); Mean Corpuscular Volume 85 fl (84-94); Monocytes # (Auto) 0.9 K/mm3 (0.0-0.8); Monocytes % (Auto) 10.4 % (0.0-7.3); Platelet Count 157 K/mm3 (140-440); Red Blood Count 4.21 M/mm3 (3.65-5.03); Red Cell Distribution Width 13.4 % (13.2-15.2)
[2020-12-07 07:19] LABS: INR 1.1 (0.87-1.13)
[2020-12-07 07:31] LABS: Blood Urea Nitrogen 9 mg/dL (9-20); Calcium 8.3 mg/dL (8.4-10.2); Hemolysis Index 13
[2020-12-07 07:49] LABS: BUN/Creatinine Ratio 18
--- NOTE | 2020-12-07 08:02 | Discharge Summary ---
Providers - Providers Date of Admission: 12/06/20 03:37 Date of discharge: 12/07/20 Attending physician: ZAHEER MAHONEY 12/06/20 03:55 Consult to Physician [CONS] Routine Comment: Consulting Provider: TERESE SMITH Physician Instructions: Reason For Exam: Respiratory failure. R/O COVID-19 12/06/20 04:02 Consult to Physician [CONS] Routine Comment: Consulting Provider: AINSLYE MAN Physician Instructions: Reason For Exam: Respiratory Failure R/O Covid-19 12/06/20 07:15 Consult to Physician [CONS] Routine Comment: Consulting Provider: ELISA TORRES Physician Instructions: Reason For Exam: ITP Primary care physician: UPPER DOUBLER Hospitalization Reason for admission: sob Condition: Critical Hospital course: 40-year-old man no past medical history presented to the hospital complaining of shortness of breath. This is associated with myalgias, rash, extremity swelling. He recently presented to the emergency room on 11/29/2020 and was given steroids for presumed COVID-19 infection. He was instructed to pick up operator prescriptions as an outpatient, however he never obtained his medications from pharmacy. He was not tested for Covid either. The patient was admitted with diagnosis of PUI and acute thrombocytopenia. Since hospitalization the patient was noted to be Afebrile with a normal white count. Normal GFR. Procalcitonin 0.21. Blood cultures were negative. Patient had Covid testing that was also found to be negative. Patient had extensive work-up for dyspnea including CTA of the chest that was negative for PE or any other acute findings as well as VQ scan which was negative for PE. The patient was also seen by ID in consultation who recommended discontinuation of antibiotics given negative x-rays and normal procalcitonin. Hematology evaluated the patient for The thrombocytopenia. Patient was noted to have a low platelet count of 81 but returned back to normal at the time of discharge. Hematology felt the low platelet count may be secondary to allergy such as allergic dermatitis and patient received steroid from previously presumed COVID-19 infection but found to be negative. Etiology of thrombocytopenia may be related to alcohol. Patient does have a history of EtOH abuse and fatty liver disease. Patient currently satting 97% on room air and with no respiratory issues. Platelet count has normalized. Patient is to follow-up with hematology as an outpatient for the thrombocytopenia and dermatology for the rash which is likely petechiae may be related to ITP. However, patient is felt to have received maximal hospital benefit and will be discharged home. Dedicated discharge time 35 minutes. Disposition: [id number] TO HOME OR SELFCARE Time spent for discharge: 35 - Discharge Diagnoses (1) Elevated d-dimer Status: Acute (2) Person under investigation for COVID-19 Status: Acute (3) Petechial rash Status: Acute (4) Purpura Status: Acute (5) Thrombocytopenia Status: Acute (6) Alcoholism Status: Acute Core Measure Documentation - Palliative Care Palliative Care/ Comfort Measures: Not Applicable - Core Measures Any of the following diagnoses?: none Exam - Constitutional Vitals: Temp Pulse Resp BP Pulse Ox 97.3 F L 70 18 109/63 98 12/07/20 04:30 12/07/20 04:30 12/07/20 04:30 12/07/20 04:30 12/07/20 04:30 General appearance: Present: no acute distress, well-nourished - EENT Eyes: Present: PERRL ENT: hearing intact, clear oral mucosa - Neck Neck: Present: supple, normal ROM - Respiratory Respiratory effort: normal Respiratory: bilateral: CTA - Cardiovascular Heart Sounds: Present: S1 & S2. Absent: rub, click - Extremities Extremities: pulses symmetrical, No edema Peripheral Pulses: within normal limits - Abdominal General gastrointestinal: Present: soft, non-tender, non-distended, normal bowel sounds Male genitourinary: Present: normal - Integumentary Integumentary: Present: clear, warm, dry - Musculoskeletal Musculoskeletal: gait normal, strength equal bilaterally - Psychiatric Psychiatric: appropriate mood/affect, intact judgment & insight - Neurologic Neurologic: CNII-XII intact, moves all extremities Plan Activity: advance as tolerated Weight Bearing Status: Weight Bear as Tolerated Diet: regular Follow up with: PRIMARY CARE, [Primary Care Provider] - 3-5 Days ELISA TORRES MD [Staff Physician] - 7 Days TERESE SMITH MD [Staff Physician] - 7 Days Prescriptions: Sucralfate [Carafate] 1 gm PO Q6HR #30 tablet Fluticasone [Flonase] 1 spray NS QDAY #1 bottle Folic Acid [Folvite] 1 mg PO QDAY #30 tablet methylPREDNISolone [Medrol 4MG DOSEPAK (21 tabs)] 4 mg PO DAILY 6 Days #1 tab.ds.pk Albuterol Mdi (or & Nicu Only) [ProAir HFA Inhaler] 2 puff IH QID PRN #1 inhalation PRN Reason: Shortness Of Breath Pantoprazole [Protonix TAB] 40 mg PO QDAY #30 tablet Tramadol HCl/Acetaminophen [Ultracet] 1 each PO Q6HR PRN #12 tablet PRN Reason: Pain , Severe (7-10) Thiamine [Vitamin B-1] 100 mg PO QDAY #30 tablet
[2020-12-07] MEDS ORDERED: THIAMINE 100 MG TAB PO SCH (10:00)
[2020-12-07] MEDS ORDERED: FOLIC ACID 1 MG TAB PO SCH (10:00)
[2020-12-07 10:05] VITALS: BP 118/73
== END 2020-12-07 09:45 | disposition home or self-care (01) | DRG 813 ==
LOC: ED 20:20 → OBSVTOIN 12-06 03:37 → 3A 12-06 03:37 → 4A 12-06 23:13
PROVIDERS: ADMIT Internal Medicine Geriatric Medicine; ATTEND Hospitalist
DX: D69.3 Immune thrombocytopenic purpura (principal); J96.01 Acute respiratory failure with hypoxia; Z20.822 Contact with and (suspected) exposure to COVID-19; F17.200 Nicotine dependence, unspecified, uncomplicated; E86.0 Dehydration; F10.20 Alcohol dependence, uncomplicated
CPT/HCPCS: 36415; 71045; 71275; 78580; 80048; 80053; 81001; 82140; 82550; 82728; 82947; 83615; 83735; 83880; 84145; 84484; 85025; 85379; 85384; 85610; 85652; 85730; 86140; 87040; 87086; 93005; 96365; 96366; 96368; 96375; 99406; G0378; A9540; J0456; J0696; J1100; J7030; Q9967; U0003

== ENCOUNTER 2021-03-15 07:24 | Emergency (ER) | payer SELFPAY ==
[2021-03-15 07:57] VITALS: BP 134/92
--- NOTE | 2021-03-15 09:15 | Emergency Department Report ---
ED Extremity Problem HPI - General Chief complaint: Extremity Problem,Nontraumatic Stated complaint: RT FOOT SWOLLEN Time Seen by Provider: 03/15/21 09:06 Source: patient Mode of arrival: Ambulatory Limitations: No Limitations - History of Present Illness Initial comments: 40-year-old male complaining of right leg and right foot pain and swelling for 2 days. He denies any known injuries. He reports no trauma no falls he denies any past medical history. During examination patient is falling asleep states that he is unable to sleep because of the pain. He denies any drug or alcohol use he is in no acute distress MD Complaint: extremity pain -: days(s) (Today) Location: right, lower extremity History of Same: Yes Quality: aching Consistency: constant Improves with: nothing Worsens with: weight bearing Associated Symptoms: denies other symptoms - Related Data Previous Rx's Medication Instructions Recorded Last Taken Type Dicyclomine [Bentyl] 20 mg PO QID PRN #20 tablet 07/27/18 Unknown Rx Famotidine [Pepcid] 40 mg PO QHS #10 tablet 11/28/18 Unknown Rx Erythromycin [Erythromycin Ophth 1 applic OS Q6H #1 tube 02/13/20 Unknown Rx Oint] Bacitracin Zinc/Polymyxin B 15 gm TP BID #90 oint...g. 04/04/20 Unknown Rx [Bacitracin-Polymyxin Ointment] Albuterol Mdi (or & Nicu Only) 2 puff IH QID PRN #1 inhalation 12/07/20 Unknown Rx [ProAir HFA Inhaler] Fluticasone [Flonase] 1 spray NS QDAY #1 bottle 12/07/20 Unknown Rx Folic Acid [Folvite] 1 mg PO QDAY #30 tablet 12/07/20 Unknown Rx Pantoprazole [Protonix TAB] 40 mg PO QDAY #30 tablet 12/07/20 Unknown Rx Sucralfate [Carafate] 1 gm PO Q6HR #30 tablet 12/07/20 Unknown Rx Thiamine [Vitamin B-1] 100 mg PO QDAY #30 tablet 12/07/20 Unknown Rx Tramadol HCl/Acetaminophen 1 each PO Q6HR PRN #12 tablet 12/07/20 Unknown Rx [Ultracet] methylPREDNISolone [Medrol 4MG 4 mg PO DAILY 6 Days #1 tab.ds.pk 12/07/20 Unknown Rx DOSEPAK (21 tabs)] Ibuprofen [Motrin] 800 mg PO Q8HR PRN #21 tablet 03/15/21 Unknown Rx cephALEXin [Keflex] 500 mg PO Q8HR 7 Days #21 cap 03/15/21 Unknown Rx Allergies Allergy/AdvReac Type Severity Reaction Status Date / Time No Known Allergies Allergy Verified 03/15/21 07:57 ED Review of Systems ROS: Stated complaint: RT FOOT SWOLLEN Other details as noted in HPI Comment: All other systems reviewed and negative Constitutional: no symptoms reported Eyes: as per HPI ENT: as per HPI Respiratory: no symptoms reported Cardiovascular: as per HPI Endocrine: no symptoms reported Gastrointestinal: denies: abdominal pain Genitourinary: denies: urgency, dysuria Neurological: denies: headache, weakness Psychiatric: denies: anxiety, depression, auditory hallucinations, visual hallucinations ED Past Medical Hx - Past Medical History Hx Hypertension: No Hx Congestive Heart Failure: No Hx Diabetes: No Hx Liver Disease: Yes (elevated LFTs, possible acute alcholic hepatitis) Hx Seizures: No Hx Asthma: No Hx COPD: No Additional medical history: cirrhosis - Social History Smoking Status: Current Every Day Smoker - Medications Home Medications: Home Medications Medication Instructions Recorded Confirmed Last Taken Type Dicyclomine [Bentyl] 20 mg PO QID PRN #20 tablet 07/27/18 Unknown Rx Famotidine [Pepcid] 40 mg PO QHS #10 tablet 11/28/18 Unknown Rx Erythromycin [Erythromycin Ophth 1 applic OS Q6H #1 tube 02/13/20 Unknown Rx Oint] Bacitracin Zinc/Polymyxin B 15 gm TP BID #90 oint...g. 04/04/20 Unknown Rx [Bacitracin-Polymyxin Ointment] Albuterol Mdi (or & Nicu Only) 2 puff IH QID PRN #1 inhalation 12/07/20 Unknown Rx [ProAir HFA Inhaler] Fluticasone [Flonase] 1 spray NS QDAY #1 bottle 12/07/20 Unknown Rx Folic Acid [Folvite] 1 mg PO QDAY #30 tablet 12/07/20 Unknown Rx Pantoprazole [Protonix TAB] 40 mg PO QDAY #30 tablet 12/07/20 Unknown Rx Sucralfate [Carafate] 1 gm PO Q6HR #30 tablet 12/07/20 Unknown Rx Thiamine [Vitamin B-1] 100 mg PO QDAY #30 tablet 12/07/20 Unknown Rx Tramadol HCl/Acetaminophen 1 each PO Q6HR PRN #12 tablet 12/07/20 Unknown Rx [Ultracet] methylPREDNISolone [Medrol 4MG 4 mg PO DAILY 6 Days #1 tab.ds.pk 12/07/20 Unknown Rx DOSEPAK (21 tabs)] Ibuprofen [Motrin] 800 mg PO Q8HR PRN #21 tablet 03/15/21 Unknown Rx cephALEXin [Keflex] 500 mg PO Q8HR 7 Days #21 cap 03/15/21 Unknown Rx ED Physical Exam - General Limitations: No Limitations General appearance: alert, in no apparent distress - Head Head exam: Present: atraumatic - Eye Eye exam: Present: normal appearance - ENT ENT exam: Present: normal exam - Neck Neck exam: Present: normal inspection - Respiratory Respiratory exam: Present: normal lung sounds bilaterally - Cardiovascular Cardiovascular Exam: Present: normal heart sounds - Extremities Exam Extremities exam: Present: other (Right lower extremity swollen from the knee down mild redness skin intact distal pulses intact full range of motion of his toes) - Neurological Exam Neurological exam: Present: alert, oriented X3, abnormal gait - Psychiatric Psychiatric exam: Present: other (Appears extremely tired falling asleep with 1 word answer) - Skin Skin exam: Present: warm, dry, erythema. Absent: rash, vesicles, pallor, abrasion ED Course Vital Signs 03/15/21 07:56 Temperature 98.1 F Pulse Rate 91 H Blood Pressure 134/92 [Left] O2 Sat by Pulse 100 Oximetry - Reevaluation(s) Reevaluation #1: 03/15/21 09:17 Patient awaiting x-ray and ultrasound of his right lower extremity ED Medical Decision Making - Lab Data Result diagrams: 03/15/21 09:28 03/15/21 09:28 - Radiology Data Radiology results: report reviewed Right tibia and fibula 4 views INDICATION: Swelling FINDINGS: Tibia and fibula appear normal. No periosteal reaction is seen. No acute fracture dislocation Right lower extremity Doppler venous ultrasound INDICATION: Edema FINDINGS: The right common femoral vein, superficial femoral vein and popliteal vein have normal compressibility and phasic flow. IMPRESSION: No evidence for DVT. - Medical Decision Making 40-year-old male with complaint of right lower leg swelling and redness no known falls or traumas. Your insect bites his skin is intact there is swelling of his right leg below his knee to his foot and mild erythema around the ankle region. Distal pulses are intact x-ray of his right lower leg shows no fractures or dislocation ultrasound shows no evidence of deep vein thrombosis. Patient treated for cellulitis he is prescribed cephalexin. - Differential Diagnosis DVT, peripheral edema fracture contusion cellulitis Critical Care Time: No Critical care attestation.: If time is entered above; I have spent that time in minutes in the direct care of this critically ill patient, excluding procedure time. ED Disposition Clinical Impression: Cellulitis Qualifiers: Site of cellulitis: extremity Site of cellulitis of extremity: lower extremity Laterality: right Qualified Code(s): L03.115 - Cellulitis of right lower limb Disposition: TO HOME OR SELFCARE Is pt being admited?: No Does the pt Need Aspirin: No Condition: Stable Instructions: Cellulitis, Adult Additional Instructions: The x-ray of your right lower extremity show no broken bones or dislocations. The ultrasound of your right leg shows no blood clot. You are being treated for superficial skin infection. Rest your leg and elevate when sitting. Take antibiotic as prescribed these follow-up with Dr. Sparks in 3 to 5 days.. Return to the emergency room for any worsening symptoms such as increasing swelling pain Prescriptions: cephALEXin [Keflex] 500 mg PO Q8HR 7 Days #21 cap Ibuprofen [Motrin] 800 mg PO Q8HR PRN #21 tablet PRN Reason: Pain , Severe (7-10) Referrals: PRIMARY CARE, [Primary Care Provider] - 3-5 Days Time of Disposition: 11:10
[2021-03-15] MEDS ORDERED: IBUPROFEN 800 MG TAB PO ONE (09:18)
[2021-03-15 10:08] LABS: Hematocrit 39.9 % (35.5-45.6); Hemoglobin 13.7 gm/dl (11.8-15.2); Mean Corpuscular HGB Conc 34 % (32-34); Mean Corpuscular Volume 87 fl (84-94); Platelet Count 266 K/mm3 (140-440); Red Blood Count 4.57 M/mm3 (3.65-5.03); Red Cell Distribution Width 13.4 % (13.2-15.2)
[2021-03-15 10:27] LABS: Alanine Aminotransferase 12 units/L (7-56); Albumin 4.2 g/dL (3.9-5); Blood Urea Nitrogen 18 mg/dL (9-20); Calcium 8.7 mg/dL (8.4-10.2); Hemolysis Index 11
--- NOTE | 2021-03-15 10:34 | Vascular Lab Report ---
Right lower extremity Doppler venous ultrasound INDICATION: Edema FINDINGS: The right common femoral vein, superficial femoral vein and popliteal vein have normal comp ressibility and phasic flow. IMPRESSION: No evidence for DVT. Signer Name: Orion Crowe MD Signed: 03/15/2021 10:30 AM Workstation Name: [id number]
--- NOTE | 2021-03-15 10:46 | XRay Report ---
Right tibia and fibula 4 views INDICATION: Swelling FINDINGS: Tibia and fibula appear normal. No periosteal reaction is seen. No acute fracture dislocati on Signer Name: Orion Crowe MD Signed: 03/15/2021 10:41 AM Workstation Name: [id number]
[2021-03-15 10:47] LABS: BUN/Creatinine Ratio 26
== END 2021-03-15 11:27 | disposition home or self-care (01) ==
LOC: ED 07:24
DX: L03.115 Cellulitis of right lower limb (principal); F17.200 Nicotine dependence, unspecified, uncomplicated; Z79.899 Other long term (current) drug therapy
CPT/HCPCS: 36415; 80053; 85027; 99284

== ENCOUNTER 2021-09-17 00:18 | Emergency (ER) | payer SELFPAY ==
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
[2021-09-17 00:33] VITALS: BP 113/65
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
== END 2021-09-17 03:15 | disposition home or self-care (01) ==
LOC: ED 00:18
DX: S09.90XA Unspecified injury of head, initial encounter (principal); F17.200 Nicotine dependence, unspecified, uncomplicated; Y08.89XA Assault by other specified means, initial encounter; Y93.89 Activity, other specified; Y92.89 Other specified places as the place of occurrence of the external cause; Y99.8 Other external cause status
CPT/HCPCS: 70450; 72125; 99283

== ENCOUNTER 2021-09-21 19:25 | Emergency (ER) | payer SELFPAY ==
[2021-09-21] MEDS ORDERED: ONDANSETRON 4 MG/2 ML INJ IV ONE (20:03)
[2021-09-21] MEDS ORDERED: HYOSCYAMINE SUBL 0.125 MG TAB SL ONE (20:03)
[2021-09-21] MEDS ORDERED: SODIUM CHLORIDE 0.9% 1000 ML 1,000 ML IV ONE (20:03)
--- NOTE | 2021-09-21 20:06 | Event Note ---
ED Screening Note ED Screening Note: Patient presents for nausea, vomiting, diarrhea that began 4 days ago He has associated abdominal discomfort He denies any urinary symptoms, hematochezia, melena, hematemesis He reports he has a prior history of kidney and liver issues He states he used to be a heavy drinker but reports he has not drank since March No allergies to medicines This initial assessment/diagnostic orders/clinical plan/treatment(s) is/are subject to change based on patients health status, clinical progression and re-assessment by fellow clinical providers in the ED. Further treatment and workup at subsequent clinical providers discretion. Patient/guardian urged not to elope from the ED as their condition may be serious if not clinically assessed and managed. Initial orders include: Labs, urine, meds
[2021-09-21 21:37] LABS: Basophils % (Auto) 0.4 % (0.0-1.8); Eosinophils # (Auto) 0.2 K/mm3 (0.0-0.4); Eosinophils % (Auto) 2.7 % (0.0-4.3); Hematocrit 44.3 % (35.5-45.6); Hemoglobin 14.1 gm/dl (11.8-15.2); Lymphocytes # (Auto) 1.9 K/mm3 (1.2-5.4); Lymphocytes % (Auto) 30.7 % (13.4-35.0); Mean Corpuscular HGB Conc 32 % (32-34); Mean Corpuscular Volume 88 fl (84-94); Monocytes # (Auto) 0.7 K/mm3 (0.0-0.8); Monocytes % (Auto) 11.5 % (0.0-7.3); Platelet Count 282 K/mm3 (140-440); Red Blood Count 5.03 M/mm3 (3.65-5.03); Red Cell Distribution Width 13.7 % (13.2-15.2)
--- NOTE | 2021-09-21 21:55 | Emergency Department Report ---
ED N/V/D HPI - General Chief complaint: Nausea/Vomiting/Diarrhea Stated complaint: NAUSEA AND VOMITING Source: patient Mode of arrival: Ambulatory Limitations: No Limitations - History of Present Illness Initial comments: Patient is a 40-year-old -[place]ir[place] male with a history of chronic liver disease, anxiety and depression who presents to the ED with complaint of acute onset persistent nausea and vomiting and diarrhea with diffuse body aches and pains, generalized weakness, lack of appetite, loss of sense of taste, for the last 3 days. Patient states that other siblings have had similar symptoms with whom he came into contact. Patient denies abdominal pain, dizziness, syncope, fever, chills, chest pain or shortness of breath, dysuria, urine frequency and urgency, testicular pain, hematuria, hemoptysis, sore throat, nasal and sinus congestion and headache MD complaint: nausea, vomiting, diarrhea, other (Dry cough; loss of sense of t aste) -: Sudden, days(s) (3) Description of Vomiting: food contents, watery, bilious Description of Diarrhea: water Associated Abdominal Pain: No Location: diffuse Radiation: none Severity: moderate Quality: dull Consistency: intermittent Improves with: none Worsens with: eating, vomiting Context: possible food poisoning Associated Symptoms: denies other symptoms, myalgias, cough, loss of appetite, malaise, nausea/vomiting. denies: chest pain, diaphoresis, fever/chills, headaches, rash, dysuria, shortness of breath, syncope, weakness - Related Data Previous Rx's Medication Instructions Recorded Last Taken Type Dicyclomine [Bentyl] 20 mg PO QID PRN #20 tablet 07/27/18 Unknown Rx Erythromycin [Erythromycin Ophth 1 applic OS Q6H #1 tube 02/13/20 Unknown Rx Oint] Bacitracin Zinc/Polymyxin B 15 gm TP BID #90 oint...g. 04/04/20 Unknown Rx [Bacitracin-Polymyxin Ointment] Albuterol Mdi (or & Nicu Only) 2 puff IH QID PRN #1 inhalation 12/07/20 Unknown Rx [ProAir HFA Inhaler] Fluticasone [Flonase] 1 spray NS QDAY #1 bottle 12/07/20 Unknown Rx Folic Acid [Folvite] 1 mg PO QDAY #30 tablet 12/07/20 Unknown Rx Pantoprazole [Protonix TAB] 40 mg PO QDAY #30 tablet 12/07/20 Unknown Rx Sucralfate [Carafate] 1 gm PO Q6HR #30 tablet 12/07/20 Unknown Rx Thiamine [Vitamin B-1] 100 mg PO QDAY #30 tablet 12/07/20 Unknown Rx Tramadol HCl/Acetaminophen 1 each PO Q6HR PRN #12 tablet 12/07/20 Unknown Rx [Ultracet] methylPREDNISolone [Medrol 4MG 4 mg PO DAILY 6 Days #1 tab.ds.pk 12/07/20 Unknown Rx DOSEPAK (21 tabs)] Ibuprofen [Motrin] 800 mg PO Q8HR PRN #21 tablet 03/15/21 Unknown Rx cephALEXin [Keflex] 500 mg PO Q8HR 7 Days #21 cap 03/15/21 Unknown Rx Famotidine [Pepcid] 40 mg PO Q12H #60 tablet 09/22/21 Unknown Rx Ondansetron [Zofran Odt] 4 mg PO Q6HR PRN #20 tab.rapdis 09/22/21 Unknown Rx Allergies Allergy/AdvReac Type Severity Reaction Status Date / Time No Known Allergies Allergy Verified 09/17/21 00:32 ED Review of Systems ROS: Stated complaint: NAUSEA AND VOMITING Other details as noted in HPI Constitutional: malaise, weakness. denies: chills, fever Eyes: denies: eye pain, eye discharge, vision change ENT: denies: ear pain, throat pain Respiratory: cough. denies: shortness of breath, wheezing Cardiovascular: denies: chest pain, palpitations Endocrine: no symptoms reported Gastrointestinal: nausea, vomiting, diarrhea. denies: abdominal pain Genitourinary: denies: urgency, dysuria Musculoskeletal: myalgia. denies: back pain, joint swelling, arthralgia Skin: denies: rash, lesions Neurological: denies: headache, weakness, paresthesias Psychiatric: denies: anxiety, depression Hematological/Lymphatic: denies: easy bleeding, easy bruising ED Past Medical Hx - Past Medical History Hx Hypertension: No Hx Congestive Heart Failure: No Hx Diabetes: No Hx Liver Disease: Yes (elevated LFTs, possible acute alcholic hepatitis) Hx Seizures: No Hx Asthma: No Hx COPD: No Additional medical history: cirrhosis - Social History Smoking Status: Current Every Day Smoker Substance Use Type: Alcohol - Medications Home Medications: Home Medications Medication Instructions Recorded Confirmed Last Taken Type Dicyclomine [Bentyl] 20 mg PO QID PRN #20 tablet 07/27/18 Unknown Rx Erythromycin [Erythromycin Ophth 1 applic OS Q6H #1 tube 02/13/20 Unknown Rx Oint] Bacitracin Zinc/Polymyxin B 15 gm TP BID #90 oint...g. 04/04/20 Unknown Rx [Bacitracin-Polymyxin Ointment] Albuterol Mdi (or & Nicu Only) 2 puff IH QID PRN #1 inhalation 12/07/20 Unknown Rx [ProAir HFA Inhaler] Fluticasone [Flonase] 1 spray NS QDAY #1 bottle 12/07/20 Unknown Rx Folic Acid [Folvite] 1 mg PO QDAY #30 tablet 12/07/20 Unknown Rx Pantoprazole [Protonix TAB] 40 mg PO QDAY #30 tablet 12/07/20 Unknown Rx Sucralfate [Carafate] 1 gm PO Q6HR #30 tablet 12/07/20 Unknown Rx Thiamine [Vitamin B-1] 100 mg PO QDAY #30 tablet 12/07/20 Unknown Rx Tramadol HCl/Acetaminophen 1 each PO Q6HR PRN #12 tablet 12/07/20 Unknown Rx [Ultracet] methylPREDNISolone [Medrol 4MG 4 mg PO DAILY 6 Days #1 tab.ds.pk 12/07/20 Unknown Rx DOSEPAK (21 tabs)] Ibuprofen [Motrin] 800 mg PO Q8HR PRN #21 tablet 03/15/21 Unknown Rx cephALEXin [Keflex] 500 mg PO Q8HR 7 Days #21 cap 03/15/21 Unknown Rx Famotidine [Pepcid] 40 mg PO Q12H #60 tablet 09/22/21 Unknown Rx Ondansetron [Zofran Odt] 4 mg PO Q6HR PRN #20 tab.rapdis 09/22/21 Unknown Rx ED Physical Exam - General Limitations: No Limitations General appearance: alert, in no apparent distress - Head Head exam: Present: atraumatic, normocephalic, normal inspection - Eye Eye exam: Present: normal appearance, PERRL, EOMI Pupils: Present: normal accommodation - ENT ENT exam: Present: normal exam, normal orophraynx, mucous membranes moist, TM's normal bilaterally, normal external ear exam - Neck Neck exam: Present: normal inspection, full ROM - Respiratory Respiratory exam: Present: normal lung sounds bilaterally. Absent: respiratory distress, wheezes, rales, stridor, chest wall tenderness, accessory muscle use, prolonged expiratory - Cardiovascular Cardiovascular Exam: Present: regular rate, normal rhythm, normal heart sounds. Absent: systolic murmur, diastolic murmur, rubs, gallop - GI/Abdominal GI/Abdominal exam: Present: soft, normal bowel sounds. Absent: tenderness, guarding, rebound, hyperactive bowel sounds, hypoactive bowel sounds - Extremities Exam Extremities exam: Present: normal inspection, full ROM, normal capillary refill - Back Exam Back exam: Present: normal inspection, full ROM. Absent: tenderness, CVA tenderness (R), CVA tenderness (L), muscle spasm, paraspinal tenderness, vertebral tenderness - Neurological Exam Neurological exam: Present: alert, oriented X3, CN II-XII intact, normal gait, reflexes normal - Psychiatric Psychiatric exam: Present: normal affect, normal mood - Skin Skin exam: Present: warm, dry, intact, normal color. Absent: rash ED Course Vital Signs 09/21/21 23:40 Temperature 98.4 F Pulse Rate 68 Respiratory 16 Rate Blood Pressure 133/80 [Right] O2 Sat by Pulse 98 Oximetry ED Medical Decision Making - Lab Data Result diagrams: 09/21/21 20:42 09/21/21 20:42 - Radiology Data Radiology results: report reviewed, image reviewed - Medical Decision Making This is a 40-year-old -[place]ir[place] male with a history of chronic liver disease, anxiety and depression who presents to the ED with complaint of acute onset persistent nausea and vomiting and diarrhea with diffuse body aches and pains, generalized weakness, lack of appetite, loss of sense of taste, for the last 3 days. Patient states that other siblings have had similar symptoms with whom he came into contact. In the ED, patient is alert and oriented x3 and is not in distress. Patient was treated for nausea and vomiting, also given antacids and normal saline 1 L IV bolus x1. In the ED, patient is alert and oriented x3 and is not in any distress. Patient is not suicidal or homicidal nor experiencing any hallucinations. Lab test results were reviewed and are all nonactionable. Chest x-ray showed no acute cardiopulmonary abnormalities or pneumonitis. Patient was treated for nausea and vomiting, also given normal saline 1 L IV bolus x1. On reevaluation, patient felt better. Patient will discharge home with a referral to his primary care physician for further evaluation in 3 to 5 days. Patient was advised to return to the ED immediately if symptoms get worse. - Differential Diagnosis Gastritis; gastroenteritis; COVID-19; viral syndrome; GERD Critical care attestation.: If time is entered above; I have spent that time in minutes in the direct care of this critically ill patient, excluding procedure time. ED Disposition Clinical Impression: Nausea, vomiting and diarrhea, Viral gastroenteritis Disposition: HOME / SELF CARE / HOMELESS Is pt being admited?: No Does the pt Need Aspirin: No Condition: Stable Instructions: Viral Gastroenteritis, Adult, [id number], Nausea and Vomiting, Adult, [id number], Diarrhea, Adult, [id number] Additional Instructions: All lab test results were reviewed and are all nonactionable. Your symptoms are likely due to a viral syndrome. Therefore take medications with food, drink plenty of fluids, follow-up with your primary care physician for further evaluation and for subsequent referral to a psychiatrist for further evaluation. Return to the ED immediately if symptoms get worse. Prescriptions: Famotidine [Pepcid] 40 mg PO Q12H #60 tablet Ondansetron [Zofran Odt] 4 mg PO Q6HR PRN #20 tab.rapdis PRN Reason: Nausea Referrals: [facility] [Provider Group] - 3-[address] [facility] [Outside] - 3-5 Days Time of Disposition: 01:26 Print Language: FAROESE
[2021-09-21 22:00] LABS: Alanine Aminotransferase 13 units/L (7-56); Albumin 4.1 g/dL (3.9-5); Blood Urea Nitrogen 14 mg/dL (9-20); Calcium 8.8 mg/dL (8.4-10.2); Hemolysis Index 8
--- NOTE | 2021-09-21 22:04 | XRay Report ---
CHEST 2 VIEWS INDICATION / CLINICAL INFORMATION: Cough, N/V/D. COMPARISON: 12/05/2020 FINDINGS: SUPPORT DEVICES: None. HEART / MEDIASTINUM: No significant abnormality. LUNGS / PLEURA: No significant pulmonary or pleural abnormality. No pneumothorax. ADDITIONAL FINDINGS: No significant additional findings. IMPRESSION: 1. No acute findings. Signer Name: Gerardo Joseph MD Signed: 09/21/2021 10:00 PM Workstation Name: [id number]
[2021-09-21 22:26] LABS: BUN/Creatinine Ratio 20
[2021-09-22 00:59] LABS: Bilirubin,Urine NEG (Negative); Blood,Urine NEG (Negative); Color,Urine Yellow (Yellow); Mucus,Urine FEW /HPF; Protein,Urine <15 mg/dL mg/dL (Negative); Urobilinogen,Urine < 2.0 mg/dL (<2.0); WBC,Urine < 1.0 /HPF (0.0-6.0)
[2021-09-22 02:32] VITALS: BP 121/85
== END 2021-09-22 02:34 | disposition home or self-care (01) ==
LOC: ED 19:25
DX: A08.4 Viral intestinal infection, unspecified (principal); F17.200 Nicotine dependence, unspecified, uncomplicated; Z72.89 Other problems related to lifestyle
CPT/HCPCS: 36415; 71046; 80053; 81001; 83690; 85025; 96361; 96374; 99284; J2405; J7030; Q0162

== ENCOUNTER 2021-09-22 02:39 | Emergency (ER) | payer SELFPAY ==
[2021-09-22] MEDS ORDERED: ALUM-MAG HYDROXIDE-SIMETHICONE 200-200-20MG/5ML ORAL LIQD 30 ML PO PRN (03:02)
[2021-09-22] MEDS ORDERED: MAGNESIUM HYDROXIDE (MOM) ORAL LIQD UDC PO PRN (03:02)
[2021-09-22] MEDS ORDERED: IBUPROFEN 800 MG TAB PO ONE (04:06)
[2021-09-22] MEDS ORDERED: ZOLPIDEM 5 MG TAB PO ONE (04:08)
[2021-09-22 04:47] LABS: Basophils % (Auto) 0.5 % (0.0-1.8); Eosinophils # (Auto) 0.2 K/mm3 (0.0-0.4); Eosinophils % (Auto) 3.3 % (0.0-4.3); Hematocrit 41.9 % (35.5-45.6); Hemoglobin 13.6 gm/dl (11.8-15.2); Lymphocytes % (Auto) 29.9 % (13.4-35.0); Mean Corpuscular HGB Conc 33 % (32-34); Mean Corpuscular Volume 87 fl (84-94); Monocytes # (Auto) 0.6 K/mm3 (0.0-0.8); Monocytes % (Auto) 9.7 % (0.0-7.3); Platelet Count 269 K/mm3 (140-440); Red Blood Count 4.85 M/mm3 (3.65-5.03); Red Cell Distribution Width 13.7 % (13.2-15.2)
--- NOTE | 2021-09-22 05:25 | Emergency Department Report ---
ED Psych HPI - General Chief Complaint: Psych Stated Complaint: SI/Depression Time Seen by Provider: 09/22/21 02:56 Source: patient Mode of arrival: Ambulatory - History of Present Illness Initial Comments: Chief complaint: I am having suicidal thoughts. I am depressed. HPI: This is a 40-year-old male with history of thrombocytopenia, alcohol abuse, liver disease who presents with depression and "suicidal thoughts". Denies suicidal ideation. No hallucinations. MD Complaint: suicidal ideation, feels depressed -: Gradual, month(s) (Several months) Associated Psychiatric Symptoms: none History of same: Yes Quality: constant Improves With: none Worsens With: none Context: recent alcohol abuse Associated Symptoms: denies other symptoms Treatments Prior to Arrival: none If Self Harm: admits thoughts of - Related Data Previous Rx's Medication Instructions Recorded Last Taken Type Dicyclomine [Bentyl] 20 mg PO QID PRN #20 tablet 07/27/18 Unknown Rx Erythromycin [Erythromycin Ophth 1 applic OS Q6H #1 tube 02/13/20 Unknown Rx Oint] Bacitracin Zinc/Polymyxin B 15 gm TP BID #90 oint...g. 04/04/20 Unknown Rx [Bacitracin-Polymyxin Ointment] Albuterol Mdi (or & Nicu Only) 2 puff IH QID PRN #1 inhalation 12/07/20 Unknown Rx [ProAir HFA Inhaler] Fluticasone [Flonase] 1 spray NS QDAY #1 bottle 12/07/20 Unknown Rx Folic Acid [Folvite] 1 mg PO QDAY #30 tablet 12/07/20 Unknown Rx Pantoprazole [Protonix TAB] 40 mg PO QDAY #30 tablet 12/07/20 Unknown Rx Sucralfate [Carafate] 1 gm PO Q6HR #30 tablet 12/07/20 Unknown Rx Thiamine [Vitamin B-1] 100 mg PO QDAY #30 tablet 12/07/20 Unknown Rx Tramadol HCl/Acetaminophen 1 each PO Q6HR PRN #12 tablet 12/07/20 Unknown Rx [Ultracet] methylPREDNISolone [Medrol 4MG 4 mg PO DAILY 6 Days #1 tab.ds.pk 12/07/20 Unknown Rx DOSEPAK (21 tabs)] Ibuprofen [Motrin] 800 mg PO Q8HR PRN #21 tablet 03/15/21 Unknown Rx cephALEXin [Keflex] 500 mg PO Q8HR 7 Days #21 cap 03/15/21 Unknown Rx Famotidine [Pepcid] 40 mg PO Q12H #60 tablet 09/22/21 Unknown Rx Ondansetron [Zofran Odt] 4 mg PO Q6HR PRN #20 tab.rapdis 09/22/21 Unknown Rx Allergies Allergy/AdvReac Type Severity Reaction Status Date / Time No Known Allergies Allergy Verified 09/17/21 00:32 ED Review of Systems ROS: Stated complaint: SI/Depression Other details as noted in HPI Comment: All other systems reviewed and negative Constitutional: denies: chills, fever, malaise Respiratory: denies: cough, shortness of breath Cardiovascular: denies: chest pain Gastrointestinal: denies: abdominal pain, nausea, vomiting Psychiatric: depression, suicidal thoughts ED Past Medical Hx - Past Medical History Previous Medical History?: Yes Hx Hypertension: No Hx Congestive Heart Failure: No Hx Diabetes: No Hx Liver Disease: Yes (elevated LFTs, possible acute alcholic hepatitis) Hx Seizures: No Hx Asthma: No Hx COPD: No Additional medical history: cirrhosis - Surgical History Past Surgical History?: No - Social History Smoking Status: Current Every Day Smoker Substance Use Type: Alcohol - Medications Home Medications: Home Medications Medication Instructions Recorded Confirmed Last Taken Type Dicyclomine [Bentyl] 20 mg PO QID PRN #20 tablet 07/27/18 Unknown Rx Erythromycin [Erythromycin Ophth 1 applic OS Q6H #1 tube 02/13/20 Unknown Rx Oint] Bacitracin Zinc/Polymyxin B 15 gm TP BID #90 oint...g. 04/04/20 Unknown Rx [Bacitracin-Polymyxin Ointment] Albuterol Mdi (or & Nicu Only) 2 puff IH QID PRN #1 inhalation 12/07/20 Unknown Rx [ProAir HFA Inhaler] Fluticasone [Flonase] 1 spray NS QDAY #1 bottle 12/07/20 Unknown Rx Folic Acid [Folvite] 1 mg PO QDAY #30 tablet 12/07/20 Unknown Rx Pantoprazole [Protonix TAB] 40 mg PO QDAY #30 tablet 12/07/20 Unknown Rx Sucralfate [Carafate] 1 gm PO Q6HR #30 tablet 12/07/20 Unknown Rx Thiamine [Vitamin B-1] 100 mg PO QDAY #30 tablet 12/07/20 Unknown Rx Tramadol HCl/Acetaminophen 1 each PO Q6HR PRN #12 tablet 12/07/20 Unknown Rx [Ultracet] methylPREDNISolone [Medrol 4MG 4 mg PO DAILY 6 Days #1 tab.ds.pk 12/07/20 Unknown Rx DOSEPAK (21 tabs)] Ibuprofen [Motrin] 800 mg PO Q8HR PRN #21 tablet 03/15/21 Unknown Rx cephALEXin [Keflex] 500 mg PO Q8HR 7 Days #21 cap 03/15/21 Unknown Rx Famotidine [Pepcid] 40 mg PO Q12H #60 tablet 09/22/21 Unknown Rx Ondansetron [Zofran Odt] 4 mg PO Q6HR PRN #20 tab.rapdis 09/22/21 Unknown Rx ED Physical Exam - General Limitations: No Limitations General appearance: alert, in no apparent distress, other (Disheveled, poor hygiene) - Head Head exam: Present: atraumatic, normocephalic - Eye Eye exam: Present: normal appearance - ENT ENT exam: Present: mucous membranes moist - Neck Neck exam: Present: normal inspection, full ROM - Respiratory Respiratory exam: Present: normal lung sounds bilaterally. Absent: respiratory distress, wheezes, rales, rhonchi - Cardiovascular Cardiovascular Exam: Present: regular rate, normal rhythm, normal heart sounds. Absent: systolic murmur, diastolic murmur, rubs, gallop - GI/Abdominal GI/Abdominal exam: Present: soft, normal bowel sounds. Absent: distended, tenderness, guarding, rebound - Rectal Rectal exam: Present: deferred - Extremities Exam Extremities exam: Present: normal inspection - Back Exam Back exam: Present: normal inspection - Neurological Exam Neurological exam: Present: alert, oriented X3 - Psychiatric Psychiatric exam: Present: normal affect, normal mood - Skin Skin exam: Present: warm, dry, intact, normal color. Absent: rash ED Course Vital Signs 09/22/21 09/22/21 09/22/21 02:44 04:14 08:59 Temperature 97.9 F Pulse Rate 81 Respiratory 16 Rate Blood Pressure 136/81 [Right] O2 Sat by Pulse 99 98 99 Oximetry 09/22/21 09/22/21 09/22/21 13:28 19:39 20:30 Temperature 98.1 F Pulse Rate 78 90 Respiratory 18 18 Rate Blood Pressure 108/68 135/89 [Right] O2 Sat by Pulse 97 98 97 Oximetry 09/23/21 09/23/21 09/23/21 02:32 10:04 11:42 Temperature 98.2 F 98.2 F Pulse Rate 78 84 Respiratory 18 16 Rate Blood Pressure 101/57 116/72 [Right] O2 Sat by Pulse 96 95 97 Oximetry 09/23/21 09/24/21 09/24/21 21:11 02:56 03:24 Temperature 98.9 F 97.7 F Pulse Rate 74 71 Respiratory 18 16 Rate Blood Pressure 122/89 92/54 [Right] O2 Sat by Pulse 96 96 95 Oximetry 09/24/21 09/24/21 09/24/21 09:22 10:29 20:06 Temperature 98.4 F 97.2 F L Pulse Rate 70 90 Respiratory 18 18 Rate Blood Pressure 110/68 123/68 [Right] O2 Sat by Pulse 95 98 98 Oximetry 09/25/21 08:38 Temperature Pulse Rate Respiratory Rate Blood Pressure [Right] O2 Sat by Pulse 97 Oximetry ED Medical Decision Making - Lab Data Result diagrams: 09/22/21 03:52 09/22/21 05:00 Laboratory Results - last 24 hr 09/22/21 09/22/21 09/22/21 03:52 03:52 03:52 WBC 6.7 RBC 4.85 Hgb 13.6 Hct 41.9 MCV 87 MCH 28 MCHC 33 RDW 13.7 Plt Count 269 Lymph % (Auto) 29.9 [place] % (Auto) 9.7 H Eos % (Auto) 3.3 Baso % (Auto) 0.5 Lymph # (Auto) 2.0 [place] # (Auto) 0.6 Eos # (Auto) 0.2 Baso # (Auto) 0.0 Seg Neutrophils % 56.6 Seg Neutrophils # 3.8 Salicylates < 0.3 L Acetaminophen 5.0 L Plasma/Serum Alcohol 09/22/21 03:52 WBC RBC Hgb Hct MCV MCH MCHC RDW Plt Count Lymph % (Auto) [place] % (Auto) Eos % (Auto) Baso % (Auto) Lymph # (Auto) [place] # (Auto) Eos # (Auto) Baso # (Auto) Seg Neutrophils % Seg Neutrophils # Salicylates Acetaminophen Plasma/Serum Alcohol < 0.01 - Medical Decision Making Mr. Sesay is a 40-year-old male history of thrombocytopenia, alcohol dependence who presents with "suicidal thoughts" and "feeling depressed.". Awaiting treatment recommendations by psychiatry team. Currently medically clear for psychiatric care. Critical care attestation.: If time is entered above; I have spent that time in minutes in the direct care of this critically ill patient, excluding procedure time. ED Disposition Clinical Impression: Alcoholism, Acute depression, Suicidal ideation, COVID-19 Disposition: [address] [place] [address] Is pt being admited?: No Does the pt Need Aspirin: No Condition: Stable Referrals: PRIMARY CARE, [Primary Care Provider] - 3-5 Days
[2021-09-22 05:31] LABS: Blood Urea Nitrogen 12 mg/dL (9-20); Calcium 8.5 mg/dL (8.4-10.2); Hemolysis Index 9
[2021-09-22 05:40] LABS: BUN/Creatinine Ratio 17
--- NOTE | 2021-09-22 13:09 | Consultation ---
History of Present Illness - Reason for Consult Consult date: 09/22/21 Reason for consult: SI - History of Present Psychiatric Illness The patient was seen today. He endorses suicidal thoughts, feeling hopeless, severe depression. He makes poor eye contact. He says he's been dealing with a lot of hardships in his life. He says "I lost my job." He says "it's just been one thing after another." He denies being on any psych meds. The patient says he's on meth. PAST PSYCHIATRIC HISTORY: Diagnoses: depression Suicide attempts or Self-harm behavior: yes Prior psychiatric hospitalizations: Yes Substance Abuse history: Meth Previous psychiatric medications tried: Denies Outpatient treatment: Denies PAST MEDICAL HISTORY: None reported or document Family Psychiatric History: None reported or documented SOCIAL HISTORY Marital Status: Single Living Arrangements: homeless Employment Status: Disabled Access to guns/weapons: Denies Education: History of Abuse: Denies Legal History: Denies REVIEW OF SYSTEMS Constitutional: Negative for weight loss ENT: Negative for stridor Respiratory: Negative for cough or hemoptysis All other systems reviewed and are negative MENTAL STATUS EXAMINATION General Appearance and Behavior: Age appropriate, good hygiene, wearing appropriate clothes. cooperative Cooperation: cooperative Psychomotor Behavior: Psychomotor normal Mood: depressed, hopeless Affect and affective range: congruent with stated mood Thought Process: goal directed Thought Content: depression, hopelessness Speech: normal tone and pace Suicidal Ideation: Yes Homicidal Ideation: Denies Hallucinations: Denies Delusions: None elicited Impulse Control: Limited Insight and Judgment: Limited Memory: limited Attention: Attentive Orientation: alert and oriented Assessment and Plan (1) MDD (2) Methamphetamine Dependence Treatment Plan 1013 Zoloft 25mg po daily Doxepin 10mg po qhs Sitter: per primary Medical: per primary Disposition: Recommend acute psychiatric inpatient treatment Will follow. Thanks Case staffed with Dr. Capps Medications and Allergies Allergies Allergy/AdvReac Type Severity Reaction Status Date / Time No Known Allergies Allergy Verified 09/17/21 00:32 Home Medications Medication Instructions Recorded Confirmed Last Taken Type Dicyclomine [Bentyl] 20 mg PO QID PRN #20 tablet 07/27/18 Unknown Rx Erythromycin [Erythromycin Ophth 1 applic OS Q6H #1 tube 02/13/20 Unknown Rx Oint] Bacitracin Zinc/Polymyxin B 15 gm TP BID #90 oint...g. 06/18/20 Unknown Rx [Bacitracin-Polymyxin Ointment] Albuterol Mdi (or & Nicu Only) 2 puff IH QID PRN #1 inhalation 12/07/20 Unknown Rx [ProAir HFA Inhaler] Fluticasone [Flonase] 1 spray NS QDAY #1 bottle 12/07/20 Unknown Rx Folic Acid [Folvite] 1 mg PO QDAY #30 tablet 12/07/20 Unknown Rx Pantoprazole [Protonix TAB] 40 mg PO QDAY #30 tablet 12/07/20 Unknown Rx Sucralfate [Carafate] 1 gm PO Q6HR #30 tablet 12/07/20 Unknown Rx Thiamine [Vitamin B-1] 100 mg PO QDAY #30 tablet 12/07/20 Unknown Rx Tramadol HCl/Acetaminophen 1 each PO Q6HR PRN #12 tablet 12/07/20 Unknown Rx [Ultracet] methylPREDNISolone [Medrol 4MG 4 mg PO DAILY 6 Days #1 tab.ds.pk 12/07/20 Unknown Rx DOSEPAK (21 tabs)] Ibuprofen [Motrin] 800 mg PO Q8HR PRN #21 tablet 03/15/21 Unknown Rx cephALEXin [Keflex] 500 mg PO Q8HR 7 Days #21 cap 03/15/21 Unknown Rx Famotidine [Pepcid] 40 mg PO Q12H #60 tablet 09/22/21 Unknown Rx Ondansetron [Zofran Odt] 4 mg PO Q6HR PRN #20 tab.rapdis 09/22/21 Unknown Rx Active Meds: Active Medications Acetaminophen (Acetaminophen 325 Mg Tab) 650 mg PO Q4HR PRN PRN Reason: Pain MILD(1-3)/Fever >100.5/ROMAN Al Hydrox/Mg Hydrox/Simethicone (Alum-Mag Hydroxide-Simethicone [id number]/5ml Oral Liqd 30 Ml) 30 ml PO Q4HR PRN PRN Reason: Indigestion Magnesium Hydroxide (Magnesium Hydroxide (Mom) Oral Liqd Udc) 30 ml PO Q12HR PRN PRN Reason: Constipation Mental Status Exam - Vital signs Last Vital Signs Temp 97.9 F 09/22/21 02:44 Pulse 81 09/22/21 02:44 Resp 16 09/22/21 02:44 BP 136/81 09/22/21 02:44 Pulse Ox 99 09/22/21 08:59 Results Result Diagrams: 09/22/21 03:52 09/22/21 05:00 Abnormal lab results 09/22/21 09/22/21 09/22/21 Range/Units 03:52 03:52 03:52 [place] % (Auto) 9.7 H (0.0-7.3) % Creatinine (0.8-1.3) mg/dL Glucose (75-100) mg/dL Salicylates < 0.3 L (2.8-20.0) mg/dL Acetaminophen 5.0 L (10.0-30.0) ug/mL 09/22/21 Range/Units 05:00 [place] % (Auto) (0.0-7.3) % Creatinine 0.7 L (0.8-1.3) mg/dL Glucose 115 H (75-100) mg/dL Salicylates (2.8-20.0) mg/dL Acetaminophen (10.0-30.0) ug/mL All other labs normal.
[2021-09-22 13:18] LABS: Bilirubin,Urine NEG (Negative); Blood,Urine NEG (Negative); Color,Urine Straw (Yellow); Mucus,Urine FEW /HPF; Protein,Urine <15 mg/dL mg/dL (Negative); RBC,Urine < 1.0 /HPF (0.0-6.0); Urobilinogen,Urine < 2.0 mg/dL (<2.0)
[2021-09-22 13:25] LABS: Amphetamine Screen,Urine Negative; Benzodiazepines Screen,Urine Negative; Cannabinoid Screen,Urine Negative; Cocaine Screen,Urine Negative; Methadone Screen,Urine Negative; Opiate Screen,Urine Negative
[2021-09-22] MEDS ORDERED: SERTRALINE 25 MG TAB PO SCH (14:00)
--- NOTE | 2021-09-22 17:48 | Emergency Department Report ---
Blank Doc - Documentation Documentation: 40-year-old male on 1013 for suicidal ideation. Covid test positive. Patient placed in isolation separate from other patients and will apparently need a negative test prior to placement. No signs of hypoxia.
--- NOTE | 2021-09-22 20:27 | Event Note ---
Date: 09/22/21 Ldbo-cb-soid evaluation performed. Patient lying on the right-hand side, speaking in full sentences, in no acute respiratory distress. Nausea/vomiting reported, however, I do not appreciate this on my examination. Vital signs acceptable and within normal limits at this time. The patient is not hypoxic. We would expect some physical discomfort at this time, given positive Covid test. However, at this point time, this patient is not medically decompensated to the point where he would require admission or hospitalization. Tylenol/Zofran, as needed as needed, supportive care at this time. Continue isolation precautions. Patient remains medically suitable for psychiatric disposition. Prior laboratory studies, vital signs, documentation reviewed and appreciated
[2021-09-22] MEDS ORDERED: ONDANSETRON 4 MG ODT TAB PO PRN ×2 (21:07→22:18)
[2021-09-22] MEDS: ACETAMINOPHEN 325 MG TAB PO PRN (21:16)
[2021-09-22] MEDS ORDERED: DOXEPIN 10 MG CAP PO SCH (22:00)
--- NOTE | 2021-09-23 08:52 | Progress Note ---
Subjective - Reason for Consult Consult date: 09/23/21 Reason for consult: SI - Chief Complaint Chief complaint: The patient was seen today. He still endorses suicidal thoughts. He expresses severe depression. The patient denies hallucinations. He is Covid positive. The patient says he didn't sleep well. REVIEW OF SYSTEMS Constitutional: Negative for weight loss ENT: Negative for stridor Respiratory: Negative for cough or hemoptysis All other systems reviewed and are negative MENTAL STATUS EXAMINATION General Appearance and Behavior: Age appropriate, good hygiene, wearing appropriate clothes. cooperative Cooperation: cooperative Psychomotor Behavior: Psychomotor normal Mood: depressed, hopeless Affect and affective range: congruent with stated mood Thought Process: goal directed Thought Content: depression, hopelessness Speech: normal tone and pace Suicidal Ideation: Yes Homicidal Ideation: Denies Hallucinations: Denies Delusions: None elicited Impulse Control: Limited Insight and Judgment: Limited Memory: limited Attention: Attentive Orientation: alert and oriented Assessment and Plan (1) MDD (2) Methamphetamine Dependence Treatment Plan 1013 Increase Zoloft 50mg po daily Increase Doxepin 25mg po qhs to induce sleep Sitter: per primary Medical: per primary Disposition: Recommend acute psychiatric inpatient treatment Will follow. Thanks Case staffed with Dr. Capps Mental Status Exam - Vital signs Last Vital Signs Temp 98.2 F 09/23/21 02:32 Pulse 78 09/23/21 02:32 Resp 18 09/23/21 02:32 BP 101/57 09/23/21 02:32 Pulse Ox 96 09/23/21 02:32
[2021-09-23] MEDS: SERTRALINE 50 MG TAB PO SCH (09:59)
--- NOTE | 2021-09-23 12:32 | Event Note ---
Date: 09/23/21 Patient stated that he is still suicidal. Patient diagnosed with COVID-19 however his vital signs stable with an oxygen saturation of 97% on room air. Vital signs stable. Waiting for inpatient psychiatric admission.
[2021-09-23 16:10] LABS: Alanine Aminotransferase 12 units/L (7-56); Albumin 3.9 g/dL (3.9-5)
[2021-09-23 16:11] LABS: Bilirubin,Direct < 0.2 mg/dL (0-0.2)
[2021-09-23] MEDS ORDERED: DOXEPIN 25 MG CAP PO SCH (22:00)
[2021-09-24] MEDS: SERTRALINE 50 MG TAB PO SCH (09:30)
--- NOTE | 2021-09-24 11:38 | Progress Note ---
Subjective - Reason for Consult Consult date: 09/24/21 Reason for consult: SI - Chief Complaint Chief complaint: The patient was seen today. He still endorses suicidal thoughts. He expresses severe depression. He says he slept okay. He says he has a plan "to run and jump of 75." REVIEW OF SYSTEMS Constitutional: Negative for weight loss ENT: Negative for stridor Respiratory: Negative for cough or hemoptysis All other systems reviewed and are negative MENTAL STATUS EXAMINATION General Appearance and Behavior: Age appropriate, good hygiene, wearing appropriate clothes. cooperative Cooperation: cooperative Psychomotor Behavior: Psychomotor normal Mood: depressed, hopeless Affect and affective range: congruent with stated mood Thought Process: goal directed Thought Content: depression, hopelessness Speech: normal tone and pace Suicidal Ideation: Yes Homicidal Ideation: Denies Hallucinations: Denies Delusions: None elicited Impulse Control: Limited Insight and Judgment: Limited Memory: limited Attention: Attentive Orientation: alert and oriented Assessment and Plan (1) MDD (2) Methamphetamine Dependence Treatment Plan 1013 Zoloft 50mg po daily Increase Doxepin 50mg po qhs to induce sleep Sitter: per primary Medical: per primary Disposition: Recommend acute psychiatric inpatient treatment Will follow. Thanks Case staffed with Dr. Capps Mental Status Exam - Vital signs Last Vital Signs Temp 98.4 F 09/24/21 10:29 Pulse 70 09/24/21 10:29 Resp 18 09/24/21 10:29 BP 110/68 09/24/21 10:29 Pulse Ox 98 09/24/21 10:29
--- NOTE | 2021-09-24 12:54 | Event Note ---
Covid positive. Vital signs stable. Patient is medically clear for psychiatric care. [address] Mental health team recommends acute psychiatric inpatient treatment
[2021-09-24] MEDS: ACETAMINOPHEN 325 MG TAB PO PRN (21:54)
[2021-09-24] MEDS: DOXEPIN 25 MG CAP PO SCH (23:00)
--- NOTE | 2021-09-25 07:37 | Progress Note ---
Subjective - Reason for Consult Consult date: 09/25/21 Reason for consult: SI - Chief Complaint Chief complaint: The patient was seen today. He says he has not other choice but to commit suicide because he needs help and his life is spiraling out of control. The patient says "depression and drugs are causing things to be out of control." He also says he feels paranoid and thinks people are talking about him. He says the zoloft makes him angry. REVIEW OF SYSTEMS Constitutional: Negative for weight loss ENT: Negative for stridor Respiratory: Negative for cough or hemoptysis All other systems reviewed and are negative MENTAL STATUS EXAMINATION General Appearance and Behavior: Age appropriate, good hygiene, wearing appropriate clothes. cooperative Cooperation: cooperative Psychomotor Behavior: Psychomotor normal Mood: depressed, hopeless Affect and affective range: congruent with stated mood Thought Process: goal directed Thought Content: depression, hopelessness Speech: normal tone and pace Suicidal Ideation: Yes Homicidal Ideation: Denies Hallucinations: Denies Delusions: paranoid Impulse Control: Limited Insight and Judgment: Limited Memory: limited Attention: Attentive Orientation: alert and oriented Assessment and Plan (1) MDD (2) Methamphetamine Dependence Treatment Plan 1013 d/c Zoloft 50mg po daily Start Lexapro 5mg po daily Start Abilify 5mg po daily Doxepin 50mg po qhs to induce sleep Sitter: per primary Medical: per primary Disposition: Recommend acute psychiatric inpatient treatment Will follow. Thanks Case staffed with Dr. Capps Mental Status Exam - Vital signs Last Vital Signs Temp 97.2 F L 09/24/21 20:06 Pulse 90 09/24/21 20:06 Resp 18 09/24/21 20:06 BP 123/68 09/24/21 20:06 Pulse Ox 98 09/24/21 20:06
[2021-09-25] MEDS: ARIPiprazole 5 MG TAB PO SCH (09:42)
[2021-09-25] MEDS: ESCITALOPRAM 10 MG TAB PO SCH (09:42)
[2021-09-25] MEDS ORDERED: ZIPRASIDONE MESYLATE 20 MG VIAL IM ONE (19:42)
[2021-09-26] MEDS: DOXEPIN 25 MG CAP PO SCH ×2 (00:18→23:23)
[2021-09-26] MEDS: ESCITALOPRAM 10 MG TAB PO SCH (10:12)
[2021-09-26] MEDS: ARIPiprazole 5 MG TAB PO SCH (10:12)
--- NOTE | 2021-09-26 11:14 | Progress Note ---
Subjective - Reason for Consult Consult date: 09/26/21 Reason for consult: mental health evaluation - Chief Complaint Chief complaint: The patient was seen today, he reports not doing well. He continues to endorse suicidal ideation. He denies homicidal ideation and denies hallucinations. REVIEW OF SYSTEMS Constitutional: Negative for weight loss ENT: Negative for stridor Respiratory: Negative for cough or hemoptysis All other systems reviewed and are negative MENTAL STATUS EXAMINATION General Appearance and Behavior: Age appropriate, good hygiene, wearing appropriate clothes. cooperative Cooperation: cooperative Psychomotor Behavior: Psychomotor normal Mood: depressed, hopeless Affect and affective range: congruent with stated mood Thought Process: goal directed Thought Content: depression, hopelessness Speech: normal tone and pace Suicidal Ideation: Yes Homicidal Ideation: Denies Hallucinations: Denies Delusions: paranoid Impulse Control: Limited Insight and Judgment: Limited Memory: limited Attention: Attentive Orientation: alert and oriented Assessment and Plan (1) MDD (2) Methamphetamine Dependence Treatment Plan 1013 Continue Lexapro 5mg po daily Continue Abilify 5mg po daily Continue Doxepin 50mg po qhs to induce sleep Sitter: per primary Medical: per primary Disposition: Recommend acute psychiatric inpatient treatment Will follow. Thanks Case staffed with Dr. Capps Mental Status Exam - Vital signs Last Vital Signs Temp 98.1 F 09/25/21 20:00 Pulse 68 09/25/21 20:00 Resp 18 09/26/21 05:18 BP 107/59 09/25/21 20:00 Pulse Ox 97 09/26/21 10:53
--- NOTE | 2021-09-26 12:04 | Event Note ---
Date: 09/26/21 40-year-old male here for suicidal ideation. He was seen by my colleague and was medically cleared for psychiatric evaluation and placement. Vital signs reviewed and are stable. There were no acute events overnight. Currently awaiting placement for inpatient psychiatric treatment.
--- NOTE | 2021-09-27 10:00 | Progress Note ---
Subjective - Reason for Consult Consult date: 09/27/21 Reason for consult: suicidal ideation - Chief Complaint Chief complaint: The patient was seen today, He continues to endorse suicidal ideation. He denies homicidal ideation and denies hallucinations. REVIEW OF SYSTEMS Constitutional: Negative for weight loss ENT: Negative for stridor Respiratory: Negative for cough or hemoptysis All other systems reviewed and are negative MENTAL STATUS EXAMINATION General Appearance and Behavior: Age appropriate, good hygiene, wearing appropriate clothes. cooperative Cooperation: cooperative Psychomotor Behavior: Psychomotor normal Mood: depressed, hopeless Affect and affective range: congruent with stated mood Thought Process: goal directed Thought Content: depression, hopelessness Speech: normal tone and pace Suicidal Ideation: Yes Homicidal Ideation: Denies Hallucinations: Denies Delusions: paranoid Impulse Control: Limited Insight and Judgment: Limited Memory: limited Attention: Attentive Orientation: alert and oriented Assessment and Plan (1) MDD (2) Methamphetamine Dependence Treatment Plan 1013 Continue Lexapro 5mg po daily Continue Abilify 5mg po daily Continue Doxepin 50mg po qhs to induce sleep Sitter: per primary Medical: per primary Disposition: Recommend acute psychiatric inpatient treatment Will follow. Thanks Case staffed with Dr. Capps Mental Status Exam - Vital signs Last Vital Signs Temp 98.2 F 09/26/21 15:51 Pulse 73 09/26/21 15:51 Resp 18 09/26/21 15:51 BP 112/93 09/26/21 15:51 Pulse Ox 97 09/27/21 09:35
[2021-09-27] MEDS: ESCITALOPRAM 10 MG TAB PO SCH (10:06)
[2021-09-27] MEDS: ARIPiprazole 5 MG TAB PO SCH (10:06)
--- NOTE | 2021-09-27 11:20 | Event Note ---
Date: 09/27/21 40-year-old male here for suicidal ideation. He was seen by my colleague and was medically cleared for psychiatric evaluation and placement. Vital signs reviewed and are stable. There were no acute events overnight. Currently awaiting inpatient psychiatric facility placement.
[2021-09-27] MEDS: DOXEPIN 25 MG CAP PO SCH (22:56)
--- NOTE | 2021-09-28 10:03 | Progress Note ---
Subjective - Reason for Consult Consult date: 09/28/21 Reason for consult: Suicidal ideation - Chief Complaint Chief complaint: The patient was seen today, He reports doing well. He denies suicidal/homicidal ideation and denies hallucinations. REVIEW OF SYSTEMS Constitutional: Negative for weight loss ENT: Negative for stridor Respiratory: Negative for cough or hemoptysis All other systems reviewed and are negative MENTAL STATUS EXAMINATION General Appearance and Behavior: Age appropriate, good hygiene, wearing appropriate clothes. cooperative Cooperation: cooperative Psychomotor Behavior: Psychomotor normal Mood: "ok" Affect and affective range: congruent with stated mood Thought Process: goal directed Thought Content: Reality oriented Speech: normal tone and pace Suicidal Ideation: Denies Homicidal Ideation: Denies Hallucinations: Denies Delusions: None Impulse Control: Limited Insight and Judgment: Limited Memory: limited Attention: Attentive Orientation: alert and oriented Assessment and Plan (1) MDD (2) Methamphetamine Dependence Treatment Plan Discontinue 1013 Continue Lexapro 5mg po daily Continue Abilify 5mg po daily Continue Doxepin 50mg po qhs to induce sleep Sitter: per primary Medical: per primary Disposition: Do not recommend acute psychiatric inpatient treatment. [facility] charlette matos provide patient with psychiatric outpatient resources. Will sign off. Thanks Case staffed with Dr. Capps Mental Status Exam - Vital signs Last Vital Signs Temp 98.0 F 09/27/21 20:42 Pulse 78 09/27/21 20:42 Resp 19 09/28/21 05:59 BP 125/79 09/27/21 20:42 Pulse Ox 98 09/28/21 05:59
[2021-09-28 12:49] VITALS: BP 123/90
--- NOTE | 2021-09-28 12:54 | Event Note ---
Date: 09/28/21 40-year-old male here for suicidal ideation. He was seen by my colleague and was medically cleared for psychiatric evaluation and placement. Vital signs reviewed and are stable. There were no acute events overnight. Patient incidentally discovered to be positive for Covid 19. He was seen by the mental health/psychiatry team today who recommended discontinuing the 1013 and discharging the patient with new medications and outpatient resources.
== END 2021-09-28 13:52 | disposition home or self-care (01) ==
LOC: ED 02:39 → EEVIPCON 02:39 → ED 09-28 13:52
DX: U07.1 COVID-19 (principal); F32.9 Major depressive disorder, single episode, unspecified; F10.20 Alcohol dependence, uncomplicated; R45.851 Suicidal ideations; F17.200 Nicotine dependence, unspecified, uncomplicated; F15.20 Other stimulant dependence, uncomplicated
CPT/HCPCS: 36415; 80048; 80076; 80307; 81001; 85025; 96372; 99284; J3486; U0003; 80320; 99285; J3490; G0480; Q0162

== ENCOUNTER 2021-12-04 19:38 | Emergency (ER) | payer SELFPAY ==
--- NOTE | 2021-12-04 20:10 | Emergency Department Report ---
ED Psych HPI - General Chief Complaint: Psych Stated Complaint: MH Source: patient Mode of arrival: Ambulatory - History of Present Illness Initial Comments: Patient presents secondary suicidal thoughts. He plans on hanging himself. He had considered stabbing himself. Patient states that he just woke up today and was tired of his life. He has lost his job. He is homeless. He has no friends. He has no family. He has no support. He does not have anything that he believes is worth living for. He decided to come here for evaluation. He has attempted suicide previously. There is no family history of suicide. He is not hearing voices. He is not homicidal. - Related Data Previous Rx's Medication Instructions Recorded Last Taken Type ARIPiprazole [Abilify] 10 mg PO DAILY 30 Days #30 tab 09/28/21 Unknown Rx Doxepin [SINEquan] 25 mg PO QHS 30 Days #60 capsule 09/28/21 Unknown Rx Escitalopram Oxalate [Lexapro] 5 mg PO QDAY 30 Days #30 tablet 09/28/21 Unknown Rx Allergies Allergy/AdvReac Type Severity Reaction Status Date / Time No Known Allergies Allergy Verified 09/17/21 00:32 ED Review of Systems ROS: Stated complaint: MH Other details as noted in HPI Comment: All other systems reviewed and negative Constitutional: denies: fever Eyes: denies: vision change ENT: denies: throat pain Respiratory: denies: cough Cardiovascular: denies: chest pain Endocrine: denies: unexplained weight loss Gastrointestinal: denies: abdominal pain Genitourinary: denies: dysuria Musculoskeletal: denies: back pain Skin: denies: rash Neurological: denies: headache Psychiatric: as per HPI Hematological/Lymphatic: denies: easy bruising ED Past Medical Hx - Past Medical History Previous Medical History?: Yes Hx Hypertension: No Hx Congestive Heart Failure: No Hx Diabetes: No Hx Liver Disease: Yes (elevated LFTs, possible acute alcholic hepatitis) Hx Seizures: No Hx Asthma: No Hx COPD: No Additional medical history: cirrhosis - Surgical History Past Surgical History?: No - Family History Family history: other (Negative for suicide) - Social History Smoking Status: Current Every Day Smoker (We discussed tobacco cessation) Substance Use Type: Alcohol - Medications Home Medications: Home Medications Medication Instructions Recorded Confirmed Last Taken Type ARIPiprazole [Abilify] 10 mg PO DAILY 30 Days #30 tab 09/28/21 Unknown Rx Doxepin [SINEquan] 25 mg PO QHS 30 Days #60 capsule 09/28/21 Unknown Rx Escitalopram Oxalate [Lexapro] 5 mg PO QDAY 30 Days #30 tablet 09/28/21 Unknown Rx ED Physical Exam - General Limitations: No Limitations, Other (Pulse ox noted and normal) General appearance: alert, in no apparent distress - Head Head exam: Present: atraumatic, normocephalic - Eye Eye exam: Present: normal appearance, EOMI - ENT ENT exam: Present: normal orophraynx, normal external ear exam - Neck Neck exam: Present: normal inspection. Absent: meningismus - Respiratory Respiratory exam: Present: normal lung sounds bilaterally. Absent: respiratory distress - Cardiovascular Cardiovascular Exam: Present: regular rate, normal rhythm - GI/Abdominal GI/Abdominal exam: Present: soft. Absent: distended, tenderness - Extremities Exam Extremities exam: Present: normal capillary refill - Back Exam Back exam: Absent: CVA tenderness (R), CVA tenderness (L) - Neurological Exam Neurological exam: Present: alert, oriented X3, CN II-XII intact, normal gait - Psychiatric Psychiatric exam: Present: flat affect, suicidal ideation - Skin Skin exam: Present: warm, dry ED Course Vital Signs 12/04/21 20:00 Temperature 97.9 F Pulse Rate 92 H Respiratory 18 Rate Blood Pressure 111/68 [Right] O2 Sat by Pulse 100 Oximetry - Reevaluation(s) Reevaluation #1: 12/04/21 20:10 EMS was met upon arrival. Patient was placed on a hold and labs were ordered. Old records reviewed. Reevaluation #2: 12/04/21 21:45 Labs have been noted. UA is pending. Patient does have leukocytosis but does not have a fever or other symptoms of infection. We will repeat his white count in the morning. Reevaluation #3: 12/04/21 23:11 Patient has been medically cleared other than a drug screen. That would not hinder or impede psychiatric admission. Coronavirus test has been ordered in addition although that would not hinder psychiatric admission either. Patient will be seen by psychiatric services. He is on a hold at this time. There is no evidence of acute delusion or psychosis. ED Medical Decision Making - Lab Data Result diagrams: 12/04/21 20:13 12/04/21 20:13 - Medical Decision Making Patient presents with suicidal thoughts and a plan. He has not acted on the plan. There is no evidence of acute delusion. This does not appear to be a psychotic episode. Patient will be maintained until psychiatric services can see him and then we will proceed with disposition. Critical Care Time: No Critical care attestation.: If time is entered above; I have spent that time in minutes in the direct care of this critically ill patient, excluding procedure time. ED Disposition Clinical Impression: Suicidal ideation Disposition: 30 STILL A PATIENT Is pt being admited?: No Condition: Stable Referrals: PRIMARY CARE, [Primary Care Provider] - 3-5 Days
[2021-12-04 20:32] LABS: Basophils % (Auto) 0.3 % (0.0-1.8); Eosinophils # (Auto) 0.1 K/mm3 (0.0-0.4); Hematocrit 41.9 % (35.5-45.6); Hemoglobin 14.5 gm/dl (11.8-15.2); Lymphocytes # (Auto) 1.2 K/mm3 (1.2-5.4); Lymphocytes % (Auto) 8.8 % (13.4-35.0); Mean Corpuscular HGB Conc 35 % (32-34); Mean Corpuscular Volume 86 fl (84-94); Monocytes % (Auto) 7.2 % (0.0-7.3); Platelet Count 312 K/mm3 (140-440); Red Blood Count 4.87 M/mm3 (3.65-5.03); Red Cell Distribution Width 13.9 % (13.2-15.2)
[2021-12-04 20:55] LABS: Alanine Aminotransferase 17 units/L (7-56); Albumin 4.1 g/dL (3.9-5); BUN/Creatinine Ratio 13; Blood Urea Nitrogen 10 mg/dL (9-20); Calcium 9.2 mg/dL (8.4-10.2); Hemolysis Index 14
[2021-12-05 07:10] LABS: Basophils % (Auto) 0.4 % (0.0-1.8); Eosinophils # (Auto) 0.1 K/mm3 (0.0-0.4); Eosinophils % (Auto) 1.8 % (0.0-4.3); Hemoglobin 13.8 gm/dl (11.8-15.2); Lymphocytes # (Auto) 1.4 K/mm3 (1.2-5.4); Lymphocytes % (Auto) 17.2 % (13.4-35.0); Mean Corpuscular HGB Conc 33 % (32-34); Mean Corpuscular Volume 87 fl (84-94); Monocytes # (Auto) 0.7 K/mm3 (0.0-0.8); Monocytes % (Auto) 8.4 % (0.0-7.3); Platelet Count 285 K/mm3 (140-440); Red Blood Count 4.84 M/mm3 (3.65-5.03); Red Cell Distribution Width 13.8 % (13.2-15.2)
--- NOTE | 2021-12-05 11:25 | Consultation ---
History of Present Illness - Reason for Consult Consult date: 12/05/21 Reason for consult: suicidal ideation - History of Present Psychiatric Illness The patient is a 41 year old male with history of depression and amphetamine use disorder. In my interview with the patient, he was loud and angry. The patient states " I feel like killing myself." When asked how long he has been feeling this way, he states " my whole f life, I feel like hanging myself. " PAST PSYCHIATRIC HISTORY: Diagnoses: depression Suicide attempts or Self-harm behavior: yes Prior psychiatric hospitalizations: Yes Substance Abuse history: Meth Previous psychiatric medications tried: Denies Outpatient treatment: Denies PAST MEDICAL HISTORY: None reported or document Family Psychiatric History: None reported or documented SOCIAL HISTORY Marital Status: Single Living Arrangements: homeless Employment Status: Disabled Access to guns/weapons: Denies Education: History of Abuse: Denies Legal History: Denies REVIEW OF SYSTEMS Constitutional: Negative for weight loss ENT: Negative for stridor Respiratory: Negative for cough or hemoptysis All other systems reviewed and are negative MENTAL STATUS EXAMINATION General Appearance and Behavior: Age appropriate, good hygiene, wearing appropriate clothes. cooperative Cooperation: cooperative Psychomotor Behavior: Psychomotor normal Mood: depressed, hopeless Affect and affective range: congruent with stated mood Thought Process: goal directed Thought Content: depression, hopelessness Speech: normal tone and pace Suicidal Ideation: Yes Homicidal Ideation: Denies Hallucinations: Denies Delusions: None elicited Impulse Control: Questionable Insight and Judgment: Limited Memory: limited Attention: Attentive Orientation: alert and oriented Assessment and Plan (1) MDD (2) Methamphetamine Dependence Treatment Plan 1013 Abilify 10mg po daily Lexapro 5mg po daily Doxepin 10mg po qhs Sitter: per primary Medical: per primary Disposition: Recommend acute psychiatric inpatient treatment Will follow. Thanks Case staffed with Dr. Capps Medications and Allergies Allergies Allergy/AdvReac Type Severity Reaction Status Date / Time No Known Allergies Allergy Verified 09/17/21 00:32 Home Medications Medication Instructions Recorded Confirmed Last Taken Type ARIPiprazole [Abilify] 10 mg PO DAILY 30 Days #30 tab 09/28/21 Unknown Rx Doxepin [SINEquan] 25 mg PO QHS 30 Days #60 capsule 09/28/21 Unknown Rx Escitalopram Oxalate [Lexapro] 5 mg PO QDAY 30 Days #30 tablet 09/28/21 Unknown Rx Mental Status Exam - Vital signs Last Vital Signs Temp 97.9 F 12/04/21 20:00 Pulse 92 H 12/04/21 20:00 Resp 18 12/04/21 20:00 BP 111/68 12/04/21 20:00 Pulse Ox 100 12/04/21 20:00 Results Result Diagrams: 12/05/21 06:41 12/04/21 20:13 Abnormal lab results 12/04/21 12/05/21 Range/Units 20:13 06:41 WBC 13.6 H (4.5-11.0) K/mm3 MCHC 35 H (32-34) % Lymph % (Auto) 8.8 L (13.4-35.0) % [place] % (Auto) 8.4 H (0.0-7.3) % [place] # (Auto) 1.0 H (0.0-0.8) K/mm3 Seg Neutrophils % 82.7 H 72.2 H (40.0-70.0) % Seg Neutrophils # 11.3 H (1.8-7.7) K/mm3 All other labs normal.
[2021-12-05] MEDS ORDERED: NON-FORMULARY EACH (Escitalopram Oxalate [Lexapro] 5 MG Tablet) PO SCH (11:30)
[2021-12-05] MEDS: ESCITALOPRAM 10 MG TAB PO SCH (13:59)
[2021-12-05] MEDS: ARIPiprazole 10 MG TAB PO SCH (13:59)
--- NOTE | 2021-12-05 16:56 | Event Note ---
Awaiting further recommendations by mental health team. Patient is medically clear
[2021-12-05] MEDS: DOXEPIN 25 MG CAP PO SCH (23:11)
[2021-12-06] MEDS: ARIPiprazole 10 MG TAB PO SCH (10:25)
[2021-12-06] MEDS: ESCITALOPRAM 10 MG TAB PO SCH (10:25)
--- NOTE | 2021-12-06 11:18 | Progress Note ---
Subjective - Reason for Consult Consult date: 12/06/21 Reason for consult: suicidal ideation - Chief Complaint Chief complaint: The patient was seen this morning. He continues to endorse suicidal ideation with a plan to hang himself or stab himself. REVIEW OF SYSTEMS Constitutional: Negative for weight loss ENT: Negative for stridor Respiratory: Negative for cough or hemoptysis All other systems reviewed and are negative MENTAL STATUS EXAMINATION General Appearance and Behavior: Age appropriate, good hygiene, wearing appropriate clothes. cooperative Cooperation: cooperative Psychomotor Behavior: Psychomotor normal Mood: depressed, hopeless Affect and affective range: congruent with stated mood Thought Process: goal directed Thought Content: depression, hopelessness Speech: normal tone and pace Suicidal Ideation: Yes Homicidal Ideation: Denies Hallucinations: Denies Delusions: None elicited Impulse Control: Questionable Insight and Judgment: Limited Memory: limited Attention: Attentive Orientation: alert and oriented Assessment and Plan (1) MDD (2) Methamphetamine Dependence Treatment Plan 1013 Abilify 10mg po daily Lexapro 5mg po daily Doxepin 10mg po qhs Sitter: per primary Medical: per primary Disposition: Recommend acute psychiatric inpatient treatment Will follow. Thanks Case staffed with Dr. Capps Medications and Allergies Mental Status Exam - Vital signs Last Vital Signs Temp 98.3 F 12/05/21 20:43 Pulse 78 12/06/21 10:53 Resp 18 12/06/21 10:53 BP 104/69 12/06/21 10:53 Pulse Ox 98 12/06/21 10:53
[2021-12-06 16:49] LABS: Amphetamine Screen,Urine Negative; Benzodiazepines Screen,Urine Negative; Cannabinoid Screen,Urine Negative; Cocaine Screen,Urine Negative; Methadone Screen,Urine Negative; Opiate Screen,Urine Negative
[2021-12-06 16:59] LABS: Bilirubin,Urine NEG (Negative); Blood,Urine NEG (Negative); Color,Urine Yellow (Yellow); Mucus,Urine FEW /HPF; Protein,Urine <15 mg/dL mg/dL (Negative); Urobilinogen,Urine < 2.0 mg/dL (<2.0)
[2021-12-06] MEDS: DOXEPIN 25 MG CAP PO SCH (22:03)
--- NOTE | 2021-12-06 23:21 | Event Note ---
Date: 12/06/21 41-year-old male here with suicidal ideations. He was seen by my colleague and was medically cleared for psychiatric evaluation and placement. Vital signs reviewed and are stable. Currently awaiting inpatient psychiatric facility placement.
--- NOTE | 2021-12-07 09:20 | Progress Note ---
Subjective - Reason for Consult Consult date: 12/07/21 Reason for consult: SI - Chief Complaint Chief complaint: The patient was seen this morning. He continues to endorse suicidal ideation with no plan. REVIEW OF SYSTEMS Constitutional: Negative for weight loss ENT: Negative for stridor Respiratory: Negative for cough or hemoptysis All other systems reviewed and are negative MENTAL STATUS EXAMINATION General Appearance and Behavior: Age appropriate, good hygiene, wearing appropriate clothes. cooperative Cooperation: cooperative Psychomotor Behavior: Psychomotor normal Mood: depressed, hopeless Affect and affective range: congruent with stated mood Thought Process: goal directed Thought Content: depression, hopelessness Speech: normal tone and pace Suicidal Ideation: Yes Homicidal Ideation: Denies Hallucinations: Denies Delusions: None elicited Impulse Control: Questionable Insight and Judgment: Limited Memory: limited Attention: Attentive Orientation: alert and oriented Assessment and Plan (1) MDD (2) Methamphetamine Dependence Treatment Plan 1013 Abilify 10mg po daily Lexapro 5mg po daily Doxepin 10mg po qhs Sitter: per primary Medical: per primary Disposition: Recommend acute psychiatric inpatient treatment Will follow. Thanks Case staffed with Dr. Capps Medications and Allergies Mental Status Exam - Vital signs Last Vital Signs Temp 98.5 F 12/07/21 04:17 Pulse 70 12/07/21 04:17 Resp 17 12/07/21 06:01 BP 96/61 12/07/21 04:17 Pulse Ox 96 12/07/21 06:01
[2021-12-07] MEDS: ESCITALOPRAM 10 MG TAB PO SCH (09:46)
[2021-12-07] MEDS: ARIPiprazole 10 MG TAB PO SCH (09:48)
--- NOTE | 2021-12-07 11:14 | Event Note ---
Date: 12/07/21 41-year-old male here with psychosis. Medically cleared by my colleague. Vital signs reviewed and are stable. [facility].
[2021-12-07] MEDS: DOXEPIN 25 MG CAP PO SCH (21:10)
[2021-12-07 23:07] VITALS: BP 96/62
== END 2021-12-07 21:15 | disposition still patient (30) ==
LOC: ED 19:38
DX: R45.851 Suicidal ideations (principal); Z20.822 Contact with and (suspected) exposure to COVID-19; F17.200 Nicotine dependence, unspecified, uncomplicated; F10.20 Alcohol dependence, uncomplicated
CPT/HCPCS: 36415; 80053; 80307; 81001; 85025; 99285; U0003; 80320; G0480